=== PATIENT | female | born 1935 | race Caucasian/White ===

== ENCOUNTER 2017-11-08 07:30 | Emergency (ER) | payer BC, MEDICARE ==
[2017-11-08 07:38] VITALS: RESP 16
--- NOTE | 2017-11-08 08:17 | ED ---
General Adult HPI - General Chief complaint: ENT Stated complaint: Ear pain Time Seen by Provider: 11/08/17 07:30 Source: patient, RN notes reviewed Mode of arrival: ambulatory Limitations: no limitations - History of Present Illness Initial comments: This is an 82-year-old female who presents emergency Department complaining for 3 weeks of pain from her left ear into her throat. Patient states she was on an antibiotic for 10 days a couple weeks ago and that seemed to help but it never went away. Patient states anytime she swallows that area between her ear and throat continues to hurt. Patient also complains of significant occipital headache approximately 7 out of 10 pain. Patient continues to work [employer] and states that she cannot deal with her while she is working. Patient is not taking any pain medicines. Patient denies any fever currently but states that beginning of this 3 weeks she did have a fever. Patient denies any vision changes patient denies any numbness or weakness. Patient denies any neck pain. Patient denies any temporal pain. Patient denies any difficulty breathing shortness of breath or abdominal pain. - Related Data Home Medications Medication Instructions Recorded Confirmed Vit A/Vit C/Vit E/Zinc/Copper 1 cap PO BID 11/08/17 11/08/17 [ICAPS SOFTGEL] Previous Rx's Medication Instructions Recorded Amoxicillin/Potassium Clav 1 each PO Q12HR #28 tab 11/08/17 [Augmentin 875-125 Tablet] amLODIPine [Norvasc] 2.5 mg PO DAILY #15 tablet 11/08/17 predniSONE 20 mg PO DAILY #5 tab 11/08/17 Allergies Allergy/AdvReac Type Severity Reaction Status Date / Time No Known Allergies Allergy Verified 11/08/17 08:45 Review of Systems ROS Statement: Those systems with pertinent positive or pertinent negative responses have been documented in the HPI. ROS Other: All systems not noted in ROS Statement are negative. Past Medical History Past Medical History: Cancer Additional Past Medical History / Comment(s): Glaucoma, breast cancer History of Any Multi-Drug Resistant Organisms: None Reported Past Surgical History: Hysterectomy Additional Past Surgical History / Comment(s): right mastectomy Past Psychological History: No Psychological Hx Reported Smoking Status: Never smoker Past Alcohol Use History: None Reported Past Drug Use History: None Reported General Exam - General Exam Comments Initial Comments: GENERAL: Patient is well-developed and well-nourished. Patient is nontoxic and well- hydrated and is in no acute distress. ENT: Neck is soft and supple. No significant lymphadenopathy is noted. Oropharynx is clear. Moist mucous membranes. Neck has full range of motion without eliciting any pain. There is no thyroid enlargement and no masses were felt. Patient's TM was visualized did not appear infected or bulging or erythematous. The external canal was not red swollen and it did not become painful with movement. EYES: The sclera were anicteric and conjunctiva were pink and moist. Extraocular movements were intact and pupils were equal round and reactive to light. Eyelids were unremarkable. SKIN: Skin is clear with no lesions or rashes and otherwise unremarkable. NEUROLOGIC: Patient is alert and oriented x3. Cranial nerves II through XII are grossly intact. Motor and sensory are also intact. Normal speech, volume and content. Symmetrical smile. MUSCULOSKELETAL: Normal extremities with adequate strength and full range of motion. No lower extremity swelling or edema. No calf tenderness. LYMPHATICS: No significant lymphadenopathy is noted PSYCHIATRIC: Normal psychiatric evaluation. Limitations: no limitations Course Vital Signs 11/08/17 11/08/17 11/08/17 07:34 09:57 10:00 Temperature 97.1 F L Pulse Rate 64 59 L Respiratory 16 16 Rate Blood Pressure 210/85 221/98 203/71 O2 Sat by Pulse 100 96 Oximetry 11/08/17 10:34 Temperature Pulse Rate Respiratory Rate Blood Pressure 203/90 O2 Sat by Pulse Oximetry Medical Decision Making - Medical Decision Making patient had elevated blood pressure she was given hydralazine twice he did not bring it down fully but patient refused to stay any longer. Patient states she' s going to get a primary medical care doctor. I again tried to get the patient states she refused. - Lab Data Result diagrams: 11/08/17 08:15 11/08/17 08:15 Lab Results 11/08/17 11/08/17 Range/Units 08:15 08:15 WBC 7.5 (3.8-10.6) k/uL RBC 4.97 (3.80-5.40) m/uL Hgb 13.8 (11.4-16.0) gm/dL Hct 42.2 (34.0-46.0) % MCV 85.1 (80.0-100.0) fL MCH 27.7 (25.0-35.0) pg MCHC 32.6 (31.0-37.0) g/dL RDW 14.3 (11.5-15.5) % Plt Count 318 (150-450) k/uL Neutrophils % 62 % Lymphocytes % 23 % Monocytes % 8 % Eosinophils % 4 % Basophils % 1 % Neutrophils # 4.6 (1.3-7.7) k/uL Lymphocytes # 1.8 (1.0-4.8) k/uL Monocytes # 0.6 (0-1.0) k/uL Eosinophils # 0.3 (0-0.7) k/uL Basophils # 0.1 (0-0.2) k/uL ESR 5 (0-20) mm/hr Sodium 146 H (137-145) mmol/L Potassium 4.1 (3.5-5.1) mmol/L Chloride 109 H (98-107) mmol/L Carbon Dioxide 25 (22-30) mmol/L Anion Gap 12 mmol/L BUN 19 H (7-17) mg/dL Creatinine 0.56 (0.52-1.04) mg/dL Est GFR (CKD-EPI)AfAm >90 (>60 ml/min/1.73 sqM) Est GFR (CKD-EPI)NonAf 88 (>60 ml/min/1.73 sqM) Glucose 86 (74-99) mg/dL Calcium 9.2 (8.4-10.2) mg/dL Total Bilirubin 0.6 (0.2-1.3) mg/dL AST 24 (14-36) U/L ALT 33 (9-52) U/L Alkaline Phosphatase 79 (38-126) U/L Total Protein 6.5 (6.3-8.2) g/dL Albumin 3.8 (3.5-5.0) g/dL Disposition Clinical Impression: Eustachian tube dysfunction, Cephalgia, Hypertension Disposition: HOME SELF-CARE Condition: Good Instructions: Hypertension (ED) Additional Instructions: Patient should take Claritin for any of her ALLERGY symptoms. Prescriptions: amLODIPine [Norvasc] 2.5 mg PO DAILY #15 tablet Amoxicillin/Potassium Clav [Augmentin 875-125 Tablet] 1 each PO Q12HR #28 tab predniSONE 20 mg PO DAILY #5 tab Referrals: None,Stated [Primary Care Provider] - 1-2 days BreTalha wray DO [Doctor of Osteopathic Medicine] - 1-2 days Time of Disposition: 11:32
[2017-11-08 08:39] LABS: Basophils # (A) 0.1 k/uL (0-0.2); Basophils % (A) 1 %; Eosinophils # (A) 0.3 k/uL (0-0.7); Eosinophils % (A) 4 %; HCT 42.2 % (34.0-46.0); HGB 13.8 gm/dL (11.4-16.0); Lymphocytes # (A) 1.8 k/uL (1.0-4.8); Lymphocytes % (A) 23 %; MCH 27.7 pg (25.0-35.0); MCHC 32.6 g/dL (31.0-37.0); MCV 85.1 fL (80.0-100.0); Mean Platelet Volume 7.8; Monocytes # (A) 0.6 k/uL (0-1.0); Monocytes % (A) 8 %; Neutrophils # (A) 4.6 k/uL (1.3-7.7); Neutrophils % (A) 62 %; Platelet Count 318 k/uL (150-450); RBC 4.97 m/uL (3.80-5.40); RDW 14.3 % (11.5-15.5); WBC 7.5 k/uL (3.8-10.6)
--- NOTE | 2017-11-08 08:43 | CT ---
EXAMINATION TYPE: CT brain wo con DATE OF EXAM: 11/08/2017 COMPARISON: 12/14/2012 HISTORY: Ear pain CT DLP: 943.[address] of the brain was performed. The ventricles, basal cisterns and sulci overlying the cerebral convexities demonstrate mild enlargem ent. There is no evidence for intracranial hemorrhage or sulcal effacement. There is decreased attenuation about the periventricular white matter and deep white matter of both c erebral hemispheres, compatible with chronic small vessel ischemia. Differential diagnosis does inclu de demyelination. No mass effects are seen.No midline shift. Osseous calvarium is intact. If symptoms persist consider MRI. IMPRESSION: 1. Age related atrophic and chronic small vessel ischemic change without acute intracranial process s een at this time.
[2017-11-08 08:50] LABS: ALT 33 U/L (9-52); AST 24 U/L (14-36); Albumin 3.8 g/dL (3.5-5.0); Alkaline Phosphatase 79 U/L (38-126); Anion Gap 12 mmol/L; Blood Urea Nitrogen 19 mg/dL (7-17); Calcium 9.2 mg/dL (8.4-10.2); Carbon Dioxide 25 mmol/L (22-30); Chloride 109 mmol/L (98-107); Glucose 86 mg/dL (74-99); Potassium 4.1 mmol/L (3.5-5.1); Sodium 146 mmol/L (137-145); Total Bilirubin 0.6 mg/dL (0.2-1.3); Total Protein 6.5 g/dL (6.3-8.2)
[2017-11-08] MEDS ORDERED: hydrALAZINE HCL 20 MG/ML 1 ML VIAL IVP STA ×2 (09:53→10:52)
[2017-11-08] MEDS ORDERED: KETOROLAC 60 MG/2 ML VIAL IVP STA (09:53)
[2017-11-08 10:13] LABS: Erythrocyte Sedimentation Rate 5 mm/hr (0-20)
[2017-11-08 11:47] VITALS: BP 165/71; PULSE 62; TEMP 98
== END 2017-11-08 11:46 | disposition home or self-care (01) ==
LOC: EC 07:30
DX: I10 Essential (primary) hypertension (principal); H69.92 Unspecified Eustachian tube disorder, left ear; Z53.29 Procedure and treatment not carried out because of patient's decision for other reasons; Z85.3 Personal history of malignant neoplasm of breast
CPT/HCPCS: 36415; 93005; 80053; 85652; 85025; 70450; 99284; 96374; 96375; 96376; J0360; J1885

== ENCOUNTER 2018-08-24 19:52 | Emergency (ER) | payer MEDICARE ==
[2018-08-24 20:04] VITALS: TEMP 97.7
--- NOTE | 2018-08-24 21:02 | XR ---
EXAMINATION TYPE: XR shoulder complete RT DATE OF EXAM: 08/24/2018 COMPARISON: NONE HISTORY: Shoulder pain TECHNIQUE: 3 views FINDINGS: I see no fracture nor dislocation. There is some narrowing of the subacromial joint space. There are no pathologic calcifications. IMPRESSION: Subacromial joint space narrowing. No fracture seen.
--- NOTE | 2018-08-24 21:03 | XR ---
EXAMINATION TYPE: XR humerus RT DATE OF EXAM: 08/24/2018 COMPARISON: NONE HISTORY: Pain TECHNIQUE: 2 views FINDINGS: I see no fracture nor dislocation. Shoulder joint and elbow joint appear intact. There is n o evidence of a mass. IMPRESSION: No acute abnormality of the right humerus.
--- NOTE | 2018-08-24 21:04 | XR ---
EXAMINATION TYPE: XR chest 2V DATE OF EXAM: 08/24/2018 COMPARISON: NONE HISTORY: Pain after falling TECHNIQUE: Frontal and lateral views of the chest are obtained. FINDINGS: Heart and mediastinum are normal. There is minimal subsegmental atelectasis or scarring in the left lower lung field. There is no pneumothorax. Trachea is midline. There is no pleural effusio n. The thorax appears intact. IMPRESSION: No active cardiac pulmonary disease. Minimal subsegmental atelectasis.
--- NOTE | 2018-08-24 21:22 | ED ---
General Adult HPI - General Source: patient, RN notes reviewed, old records reviewed Mode of arrival: ambulatory Limitations: physical limitation <Jadiel Cristina - Last Filed: 08/24/18 22:16> <Mary Lou Fountain - Last Filed: 08/26/18 09:22> - General Chief complaint: Extremity Injury, Upper Stated complaint: Arm injury - History of Present Illness Initial comments: 83-year-old female patient past medical history of hypertension presents to ED with right arm pain. Patient reports that yesterday she was stepping onto a chair when she fell to the right. Patient states that she fell on her right shoulder. Patient denies any head trauma, loss of consciousness. Patient not on blood thinners. Patient denies any trauma to neck or back. Patient states that she has pain in her right midshaft humerus. Patient states that she has pain when she lifts her right arm above her head. Patient denies any pain in right shoulder. Patient has any pain in right elbow, wrist, hand. Patient states the pain is only right midshaft humerus. Patient has mild amount of ecchymoses in the area of complaint. Patient is ambulatory. Patient denies any other injury. Patient denies chest pain, SOB, abdominal pain, headache, n/v /d. Systemic: Pt denies fatigue, myalgia, fever/chills, rash. Pt denies weakness, night sweats, weight loss. Neuro: Pt denies headache, visual disturbances, syncope or pre-syncope. HEENT: Pt denies ocular discharge or irritation, otalgia, rhinorrhea, pharyngitis or notable lymphadenopathy. Cardiopulmonary: Pt denies chest pain, SOB, heart palpitations, dyspnea on exertion. Abdominal/GI: Pt denies abdominal pain, n/v/d. : Pt denies dysuria, burning w/ urination, frequency/urgency. Denies new onset urinary or bowel incontinence. MSK: Pt denies myalgia, loss of strength or function in extremities. Neuro: Pt denies new onset weakness, paresthesias. (Jadiel Cristina) - Related Data Previous Rx's Medication Instructions Recorded Ibuprofen [Motrin] 600 mg PO Q6HR PRN #40 day 08/24/18 Allergies Allergy/AdvReac Type Severity Reaction Status Date / Time No Known Allergies Allergy Verified 08/24/18 20:04 Review of Systems ROS Other: All systems not noted in ROS Statement are negative. <Jadiel Cristina - Last Filed: 08/24/18 22:16> ROS Other: All systems not noted in ROS Statement are negative. <Ovi Fountainssmiko Chappell - Last Filed: 08/26/18 09:22> ROS Statement: Those systems with pertinent positive or pertinent negative responses have been documented in the HPI. Past Medical History Past Medical History: Cancer Additional Past Medical History / Comment(s): Glaucoma, breast cancer History of Any Multi-Drug Resistant Organisms: None Reported Past Surgical History: Hysterectomy Additional Past Surgical History / Comment(s): right mastectomy Past Psychological History: No Psychological Hx Reported Smoking Status: Never smoker Past Alcohol Use History: None Reported Past Drug Use History: None Reported <Jadiel Cristina - Last Filed: 08/24/18 22:16> General Exam Limitations: physical limitation <Jadiel Cristina Sandy - Last Filed: 08/24/18 22:16> <Mary Lou Fountain - Last Filed: 08/26/18 09:22> - General Exam Comments Initial Comments: Constitutional: NAD, AOX3, Pt has pleasant affect. HEENT: NC/AT, trachea midline, neck supple, no lymphadenopathy. Posterior pharynx non erythematous, without exudates. External ears appear normal, without discharge. Mucous membranes moist. Eyes PERRLA, EOM intact. There is no scleral icterus. No pallor noted. Cardiopulmonary: RRR, no murmurs, rubs or gallops, no JVD noted. Lungs CTAB in anterior and posterior renteria. No peripheral edema. Abdominal exam: Abdomen soft and non-distended. Abdomen non-tender to palpation in all 4 quadrants. Bowel sounds active in LLQ. No hepatosplenomegaly. No ecchymosis Neuro: CN II-XII intact. No nuchal rigidity. No focal defecit, no facial droop. No cervical spinal tenderness. Full active ROM of cervical spine. MSK: R shoulder, R clavicle non tender to palpation. Pt lateral midshaft R humerus mildly tender to palpation, mild ecchymosis noted. Pt R elbow and wrist nontender to palpation. Limited ROM of humerus secondary to pain. Pt has full ROM of R shoulder. Pt has full ROM of R elbow and wrist. 5/5 stregnth triceps and biceps. Sensation intact. Radial pulse +2 bilaterally. No posterior calf tenderness bilaterally, homans sign negative bilaterally. Posterior tibialis +2 bilaterally. Sensation intact in upper and lower extremities. Full active ROM in lower extremities, 5/5 stregnth. Pt ambulatory. (Jadiel Cristina) Vital Signs 08/24/18 08/24/18 20:00 21:28 Temperature 97.7 F Pulse Rate 66 88 Respiratory 18 16 Rate Blood Pressure 175/82 147/97 O2 Sat by Pulse 95 99 Oximetry Medical Decision Making <Jadiel Cristina - Last Filed: 08/24/18 22:16> <Mary Lou Fountain - Last Filed: 08/26/18 09:22> - Medical Decision Making 83-year-old female patient past medical history of hypertension presents to ED with right arm pain. Patient reports that yesterday she was stepping onto a chair when she fell to the right. Patient states that she fell on her right shoulder. Patient denies any head trauma, loss of consciousness. Patient not on blood thinners. Patient denies any trauma to neck or back. Patient states that she has pain in her right midshaft humerus. Patient is ambulatory. Patient denies any other injury. Physical exam displayed pain to palpation in right midshaft humerus, mild amount ecchymoses. Neurovascularly intact. Plain films of right shoulder did not display any acute process. Plain films of right humerus and display any acute abnormality. Chest did not display any active cardiopulmonary disease. Patient diagnosed contusion. Patient to follow up with orthopedic consult. Patient does not currently have a primary care physician, patient referred to [facility] [place]. Patient take nonsteroidal anti-inflammatories as needed for pain. Patient to return to ED if new signs symptoms develop or if condition worsens in any way. Case discussed with Dr. Fountain. (Jadiel Cristina) I was available for consultation in the emergency department. The history and physical exam were done by the midlevel provider. I was consulted for this patient's care. I reviewed the case with the midlevel provider and based on their presentation of the patient, I agree with the assessment, medical decision making and plan of care as documented. (Mary Lou Fountain) Disposition Is patient prescribed a controlled substance at d/c from ED?: No Time of Disposition: 21:21 <Jadiel Cristina - Last Filed: 08/24/18 22:16> <Mary Lou Fountain - Last Filed: 08/26/18 09:22> Clinical Impression: Arm pain, Contusion Disposition: HOME SELF-CARE Condition: Good Instructions: Fall Prevention for Older Adults (ED) Additional Instructions: Patient to adhere to previously discussed treatment plan and will take medication(s) as directed. Patient to follow up with PCP in 1-2 days. Patient to return to ED if symptoms do not improve. Prescriptions: Ibuprofen [Motrin] 600 mg PO Q6HR PRN #40 day PRN Reason: Pain Referrals: None,Stated [Primary Care Provider] - 1-2 days [facility] [[facility]] - 1-2 days Irving Clemente MD [STAFF PHYSICIAN] - 1-2 days
[2018-08-24 21:28] VITALS: BP 147/97; PULSE 88; RESP 16
== END 2018-08-24 21:28 | disposition home or self-care (01) ==
LOC: EC 19:52
DX: S40.021A Contusion of right upper arm, initial encounter (principal); Z85.3 Personal history of malignant neoplasm of breast; W07.XXXA Fall from chair, initial encounter; Y92.009 Unspecified place in unspecified non-institutional (private) residence as the place of occurrence of the external cause
CPT/HCPCS: 71046; 99284

== ENCOUNTER → 2018-11-03 | Outpatient (CLI) | payer OTHER ==
--- NOTE | 2018-11-03 15:51 | XR ---
EXAMINATION TYPE: XR wrist complete LT DATE OF EXAM: 11/03/2018 COMPARISON: NONE HISTORY: 83 year-old female left wrist sprain after fall last night, pain. TECHNIQUE: 4 views FINDINGS: Moderate to severe degenerative change at the first CMC joint and moderate at the triscaphe joint. Th e radiocarpal and distal radioulnar joint as well as the midcarpal compartment appear intact. No acut e fracture, subluxation, or dislocation. 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 No acute osseous abnormality seen.
== END | disposition home or self-care (01) ==
LOC: RADXRMAIN 15:03
PROVIDERS: ATTEND Emergency Medicine
DX: M19.042 Primary osteoarthritis, left hand (principal)

== ENCOUNTER → 2019-04-28 | Outpatient (CLI) | payer MEDICARE ==
--- NOTE | 2019-04-28 10:22 | MM ---
Reason for exam: screening (asymptomatic). Last mammogram was performed 1 year and 10 months ago. History: Patient is postmenopausal and has history of breast cancer at age 58. Mastectomy of the right breast, 1994. Physical Findings: A clinical breast exam by your physician is recommended on an annual basis and results should be correlated with mammographic findings. MG 3D Scr Eulogio Unilateral W/Cad CC and MLO view(s) were taken of the left breast. Prior study comparison: June 18, 2017, mammogram. March 24, 2015, mammogram. May 13, 2012, mammogram. The breast tissue is heterogeneously dense. This may lower the sensitivity of mammography. No suspicious abnormality on left breast. No significant changes when compared with prior studies. ASSESSMENT: Negative, BI-RAD 1 RECOMMENDATION: Routine screening mammogram of the left breast in 1 year.
== END | disposition home or self-care (01) ==
LOC: RADMAMWWP 07:22
PROVIDERS: ATTEND Family Medicine
DX: Z12.31 Encounter for screening mammogram for malignant neoplasm of breast (principal)
CPT/HCPCS: 77067

== ENCOUNTER → 2020-06-02 | Outpatient (CLI) | payer MEDICARE ==
--- NOTE | 2020-06-06 09:18 | MM ---
Reason for exam: screening (asymptomatic). Last mammogram was performed 1 year and 1 month ago. History: Patient is postmenopausal and has history of breast cancer at age 58. Mastectomy of the right breast, 1994. Physical Findings: A clinical breast exam by your physician is recommended on an annual basis and results should be correlated with mammographic findings. MG 3D Scr Eulogio Unilateral W/Cad CC and MLO view(s) were taken of the left breast. Prior study comparison: April 28, 2019, bilateral MG 3d scr eulogio unilateral w/cad. June 18, 2017, mammogram. There are scattered fibroglandular densities. No significant changes when compared with prior studies. ASSESSMENT: Negative, BI-RAD 1 RECOMMENDATION: Routine screening mammogram of the left breast in 1 year.
== END | disposition home or self-care (01) ==
LOC: RADMAMWWP 13:37
PROVIDERS: ATTEND Family Medicine
DX: Z08 Encounter for follow-up examination after completed treatment for malignant neoplasm (principal); Z85.3 Personal history of malignant neoplasm of breast
CPT/HCPCS: 77067

== ENCOUNTER 2020-08-01 09:42 | Emergency (ER) | payer MEDICARE ==
[2020-08-01 09:57] VITALS: RESP 18; TEMP 98.2
--- NOTE | 2020-08-01 10:54 | ED ---
Extremity Problem HPI - General Chief complaint: Extremity Problem,Nontraumatic Stated complaint: L knee pain, covid + Time Seen by Provider: 08/01/20 10:01 Source: patient Mode of arrival: wheelchair - History of Present Illness Initial comments: Patient is an 85-year-old female, presenting to emergency Department with complaints of left knee pain that started this morning. Patient denies any injuries or falls. Patient states she is currently recovering from the covid virus. She denies any fevers, shortness of breath, chest pain. She denies history of previous surgeries or injuries of her left knee. She denies history of blood clots. She is not taking a blood thinner. She denies any nausea or vomiting. Patient has no further complaints at this time. Upon arrival to the ER her vitals are stable. - Related Data Home Medications Medication Instructions Recorded Confirmed Cetirizine HCl [Zyrtec] 10 mg PO DAILY 08/01/20 08/01/20 Multivitamins, Thera [Multivitamin 1 tab PO DAILY 08/01/20 08/01/20 (formulary)] Vit C/E/Zn/Coppr/Lutein/Zeaxan 1 cap PO DAILY 08/01/20 08/01/20 [Preservision Areds 2 Softgel] Allergies Allergy/AdvReac Type Severity Reaction Status Date / Time No Known Allergies Allergy Verified 08/01/20 11:03 Review of Systems ROS Statement: Those systems with pertinent positive or pertinent negative responses have been documented in the HPI. ROS Other: All systems not noted in ROS Statement are negative. Past Medical History Past Medical History: Cancer Additional Past Medical History / Comment(s): Glaucoma, breast cancer History of Any Multi-Drug Resistant Organisms: None Reported Past Surgical History: Hysterectomy Additional Past Surgical History / Comment(s): right mastectomy Past Psychological History: No Psychological Hx Reported Smoking Status: Never smoker Past Alcohol Use History: None Reported Past Drug Use History: None Reported General Exam - General Exam Comments Initial Comments: GENERAL: Patient is well-developed and well-nourished. Patient is nontoxic and in no acute distress. HEAD: Atraumatic, normocephalic. EYES: Pupils equal round and reactive to light, extraocular movements intact, sclera anicteric, conjunctiva are normal. Eyelids were unremarkable. ENT: TMs normal, nares patent, oropharynx clear without exudates. Moist mucous membranes. NECK: Normal range of motion, supple without lymphadenopathy or JVD. LUNGS: Unlabored respirations. Breath sounds clear to auscultation bilaterally and equal. No wheezes rales or rhonchi. HEART: Regular rate and rhythm without murmurs, rubs or gallops. ABDOMEN: Soft, nontender, normoactive bowel sounds. No guarding, no rebound. No masses appreciated. : Deferred MUSCULOSKELETAL: The patient has decreased range of motion, full extension, approximately 30 of active flexion, secondary to pain. There is some mild swelling present compared to the right knee. There is no erythema, signs of infection. No clubbing or cyanosis. NEUROLOGICAL: Patient is alert and oriented x 3. Motor and sensory are also intact. Cranial nerves II through XII grossly intact. Symmetrical smile. Normal speech. PSYCH: Normal mood, normal affect. SKIN: Warm, Dry, normal turgor, no rashes or lesions noted. Course Vital Signs 08/01/20 08/01/20 08/01/20 09:54 10:14 12:17 Temperature 98.2 F 98.2 F Pulse Rate 62 56 L 72 Respiratory 18 18 18 Rate Blood Pressure 91/52 126/55 134/64 O2 Sat by Pulse 99 96 98 Oximetry Medical Decision Making - Medical Decision Making Patient is an 85-year-old female here for left knee pain x 1 day. No previous histories of surgeries. Her vitals are stable. She currently is positive for covid. No chest pain, no shortness of breath, she has been feeling okay except for this left knee pain. She does have some very mild swelling of left knee, no signs of infection. Her x-rays revealed no acute x-rays dislocations, some mild suprapatellar swelling. I discussed these findings with the patient. I recommended continuing with elevation, ice and compression. I did give her an Osiel wrap. I'll also give her orthopedic follow-up if symptoms persist. She is in agreement with this plan of care. She is stable for discharge. Case discussed with Dr. Pepper. - Lab Data Result diagrams: 08/01/20 10:57 08/01/20 10:57 Lab Results 08/01/20 08/01/20 Range/Units 10:57 10:57 WBC 10.3 (3.8-10.6) k/uL RBC 5.51 H (3.80-5.40) m/uL Hgb 16.1 H (11.4-16.0) gm/dL Hct 47.4 H (34.0-46.0) % MCV 85.9 (80.0-100.0) fL MCH 29.2 (25.0-35.0) pg MCHC 34.0 (31.0-37.0) g/dL RDW 13.3 (11.5-15.5) % Plt Count 243 (150-450) k/uL MPV 8.0 Neutrophils % 80 % Lymphocytes % 9 % Monocytes % 8 % Eosinophils % 0 % Basophils % 1 % Neutrophils # 8.3 H (1.3-7.7) k/uL Lymphocytes # 1.0 (1.0-4.8) k/uL Monocytes # 0.8 (0-1.0) k/uL Eosinophils # 0.0 (0-0.7) k/uL Basophils # 0.1 (0-0.2) k/uL Sodium 136 L (137-145) mmol/L Potassium 4.9 (3.5-5.1) mmol/L Chloride 108 H (98-107) mmol/L Carbon Dioxide 23 (22-30) mmol/L Anion Gap 5 mmol/L BUN 17 (7-17) mg/dL Creatinine 0.76 (0.52-1.04) mg/dL Est GFR (CKD-EPI)AfAm 84 (>60 ml/min/1.73 sqM) Est GFR (CKD-EPI)NonAf 73 (>60 ml/min/1.73 sqM) Glucose 101 H (74-99) mg/dL Calcium 9.0 (8.4-10.2) mg/dL Total Bilirubin 1.1 (0.2-1.3) mg/dL AST 28 (14-36) U/L ALT 12 (4-34) U/L Alkaline Phosphatase 77 (38-126) U/L C-Reactive Protein 9.8 (<10.0) mg/L Total Protein 6.5 (6.3-8.2) g/dL Albumin 3.6 (3.5-5.0) g/dL Disposition Clinical Impression: Left knee pain Disposition: HOME SELF-CARE Condition: Stable Instructions (If sedation given, give patient instructions): Knee Pain (ED) Additional Instructions: Please return to the Emergency Department if symptoms worsen or any other concerns. Recommend ice to the area, compression, elevation. May take Tylenol or Motrin for discomfort. If symptoms persist follow-up with orthopedic doctor as discussed. Is patient prescribed a controlled substance at d/c from ED?: No Referrals: Bobbi Meyer DO [Primary Care Provider] - 1-2 days Jin Simpson DO [Doctor of Osteopathic Medicine] - 1-2 days
[2020-08-01 11:05] LABS: Basophils # (A) 0.1 k/uL (0-0.2); Basophils % (A) 1 %; Eosinophils % (A) 0 %; HCT 47.4 % (34.0-46.0); HGB 16.1 gm/dL (11.4-16.0); Lymphocytes % (A) 9 %; MCH 29.2 pg (25.0-35.0); MCV 85.9 fL (80.0-100.0); Monocytes # (A) 0.8 k/uL (0-1.0); Monocytes % (A) 8 %; Neutrophils # (A) 8.3 k/uL (1.3-7.7); Neutrophils % (A) 80 %; Platelet Count 243 k/uL (150-450); RBC 5.51 m/uL (3.80-5.40); RDW 13.3 % (11.5-15.5); WBC 10.3 k/uL (3.8-10.6)
[2020-08-01 11:16] LABS: Albumin 3.6 g/dL (3.5-5.0); C Reactive Protein 9.8 mg/L (<10.0); Potassium 4.9 mmol/L (3.5-5.1); Total Bilirubin 1.1 mg/dL (0.2-1.3); Total Protein 6.5 g/dL (6.3-8.2)
--- NOTE | 2020-08-01 11:17 | XR ---
EXAMINATION TYPE: XR knee complete LT DATE OF EXAM: 08/01/2020 CLINICAL HISTORY: pain TECHNIQUE: Three views of the left knee are obtained. COMPARISON: None. FINDINGS: There is no acute fracture/dislocation. The tri-compartment joint spaces appear mildly na rrowed. Small suprapatellar joint effusion noted. The overlying soft tissue appears unremarkable. IMPRESSION: There is no acute fracture or dislocation ICD 10 NO FRACTURE, INITIAL EVALUATION
[2020-08-01 12:18] VITALS: BP 134/64; PULSE 72
== END 2020-08-01 12:18 | disposition home or self-care (01) ==
LOC: EC 09:42
DX: M25.562 Pain in left knee (principal); M25.462 Effusion, left knee; U07.1 COVID-19; Z79.899 Other long term (current) drug therapy; Z85.3 Personal history of malignant neoplasm of breast
CPT/HCPCS: 36415; 80053; 85025; 86140; 99283

== ENCOUNTER 2020-09-01 14:11 | Emergency (ER) | payer MEDICARE, OTHER ==
[2020-09-01 14:17] VITALS: RESP 18; TEMP 98.1
[2020-09-01] MEDS ORDERED: LIDOCAINE 1% INJ 10MG/ML (20 ML MDV) SQ ONE (14:45)
[2020-09-01] MEDS ORDERED: ONDANSETRON 4 MG/2 ML VIAL IVP STA (14:45)
[2020-09-01] MEDS ORDERED: MORPHINE SULFATE 4 MG/ML SYRINGE IVP STA (14:45)
--- NOTE | 2020-09-01 14:45 | ED ---
Fall HPI - General Source: patient, EMS Mode of arrival: EMS <Tr Mercer - Last Filed: 09/01/20 17:20> <Devora Larios - Last Filed: 09/07/20 23:56> - General Chief Complaint: Fall Stated Complaint: Fall Time Seen by Provider: 09/01/20 14:18 - History of Present Illness Initial Comments: 85-year-old female presenting to the emergency department with a chief complaint of a fall. Patient states she was at work when she lost her balance and fell backwards. Patient states in attempt to brace her fall, she injured her left wrist. Patient states it hurts to move it in any direction. She denies any numbness or tingling. She denies any loss of consciousness or injury to the head. She is not on any blood thinners. States the pain is alleviated at rest. (Tr Mercer) - Related Data Home Medications Medication Instructions Recorded Confirmed Cetirizine HCl [Zyrtec] 10 mg PO DAILY 08/01/20 09/07/20 Vit C/E/Zn/Coppr/Lutein/Zeaxan 1 cap PO DAILY 08/01/20 09/07/20 [Preservision Areds 2 Softgel] Multivit-Min/FA/Lycopen/Lutein 1 each PO DAILY 09/07/20 09/07/20 [Centrum Silver Tablet] Previous Rx's Medication Instructions Recorded Hydrocodone/Acetaminophen [[place] 1 tab PO Q6HR PRN #12 tab 09/01/20 5-325] Allergies Allergy/AdvReac Type Severity Reaction Status Date / Time No Known Allergies Allergy Verified 09/07/20 09:21 Review of Systems ROS Other: All systems not noted in ROS Statement are negative. <Tr Mercer - Last Filed: 09/01/20 17:20> ROS Other: All systems not noted in ROS Statement are negative. <Devora Larios - Last Filed: 09/07/20 23:56> ROS Statement: Those systems with pertinent positive or pertinent negative responses have been documented in the HPI. Past Medical History Past Medical History: Cancer Additional Past Medical History / Comment(s): Glaucoma, breast cancer History of Any Multi-Drug Resistant Organisms: None Reported Past Surgical History: Hysterectomy Additional Past Surgical History / Comment(s): right mastectomy Past Psychological History: No Psychological Hx Reported Smoking Status: Never smoker Past Alcohol Use History: None Reported Past Drug Use History: None Reported <Tr Mercer - Last Filed: 09/01/20 17:20> General Exam Limitations: no limitations General appearance: alert, in no apparent distress Head exam: Present: atraumatic, normocephalic, normal inspection Eye exam: Present: normal appearance, PERRL, EOMI Pupils: Present: normal accommodation ENT exam: Present: normal exam, normal oropharynx, mucous membranes moist, TM's normal bilaterally, normal external ear exam Neck exam: Present: normal inspection, full ROM. Absent: tenderness Respiratory exam: Present: normal lung sounds bilaterally. Absent: respiratory distress, wheezes, rales Cardiovascular Exam: Present: regular rate, normal rhythm, normal heart sounds Extremities exam: Present: tenderness (Tenderness at the left wrist. Obvious bony deformity noted. Some ecchymosis noted in the region. Mild swelling.), normal capillary refill, other (+2 ulnar and radial pulses bilaterally.). Absent: normal inspection (Obvious bony deformity noted.), full ROM (Limited range of motion due to pain), pedal edema, joint swelling, calf tenderness Back exam: Present: normal inspection, full ROM. Absent: tenderness, CVA tenderness (R), CVA tenderness (L) Neurological exam: Present: alert, oriented X3, normal gait Psychiatric exam: Present: normal affect, normal mood Skin exam: Present: warm, dry, intact, normal color <Tr Mercer - Last Filed: 09/01/20 17:20> Course Vital Signs 09/01/20 09/01/20 14:13 16:51 Temperature 98.1 F Pulse Rate 58 L 76 Respiratory 18 18 Rate Blood Pressure 205/75 182/77 O2 Sat by Pulse 97 96 Oximetry Procedures - Nerve Block Consent Obtained: verbal consent Local Anesthetic Used: Lidocaine 1% Amount of anesthesia used: 10 Side: left Nerve Blocks: hematoma block Procedure Successful: Yes Complications: none Patient Tolerated Procedure: well, no complications - Orthopedic Fracture Reduction Fracture #1 Consent Obtained: verbal consent Side: left Fracture Reduction Location: radius, ulna Analgesia: hematoma block Technique: direct manipulation Post Reduction X-rays Demonstrate: acceptable reduction Post-Reduction Neuro Exam: intact, no change Post-Reduction Vascular Exam: intact Splint Applied: Yes Patient Tolerated Procedure: well, no complications - Orthopedic Splinting/Casting Injury #1 Side: left Upper Extremity Injury Location: wrist Upper Extremity Immobilizer: volar splint, Osiel wrap, synthetic pre-padded splint <Tr Mercer - Last Filed: 09/01/20 17:20> Medical Decision Making <Tr Mercer - Last Filed: 09/01/20 17:20> <Devora Larios - Last Filed: 09/07/20 23:56> - Medical Decision Making 85-year-old female presenting to the emergency room with a chief complaint of a fall. On physical examination, she is neurovascularly intact. Patient was given morphine for symptom control. X-ray of the left wrist reveals a comminuted fracture of the distal radial metaphysis with dorsal and radial angulation. Additional comminuted fracture is also noted on the ulnar neck with a radial and dorsal adulation. Hematoma block was performed and fracture reduction was attempted. Acceptable reduction performed. Volar splint applied. Patient was advised to follow-up with orthopedics. She will be discharged with [place]. She was informed regarding opioid abuse. Narcotic form signed. Return parameters discussed the patient is understanding and agreeable. Case discussed with physician. (Tr Mercer) I was available for consultation in the emergency department. The history and physical exam were done by the midlevel provider. I was consulted for this patients care. I reviewed the case with the midlevel provider and based on their presentation of the patient, I agree with the assessment, medical decision making and plan of care as documented. Chart was dictated using [employer] dictation software. Attempts were made to correct any dictation errors however some typographical errors may persist. Patient was seen during a national state of emergency due to the Covid-19 pandemic. (Devora Larios) Disposition Is patient prescribed a controlled substance at d/c from ED?: Yes If prescribed controlled substance>3 days was MAPS reviewed?: Prescribed <3 Days Time of Disposition: 16:19 <Tr Mercer - Last Filed: 09/01/20 17:20> <Devora Larios - Last Filed: 09/07/20 23:56> Clinical Impression: Fall, Wrist fracture, left, Distal radius fracture, left, Distal end of ulna fracture, closed Disposition: HOME SELF-CARE Condition: Stable Instructions (If sedation given, give patient instructions): Wrist Fracture in Adults (ED) Additional Instructions: Alternate between Tylenol and Motrin for pain control. Take [place] if the pain is severe. Follow-up with orthopedics. Return to emergency department if symptoms worsen. Prescriptions: Hydrocodone/Acetaminophen [[place] 5-325] 1 tab PO Q6HR PRN #12 tab PRN Reason: Pain Referrals: Bobbi Meyer DO [Primary Care Provider] - 1-2 days Jadiel Blunt MD [STAFF PHYSICIAN] - 1-2 days
--- NOTE | 2020-09-01 15:26 | XR ---
EXAMINATION TYPE: XR wrist complete 3 views LT, XR hand complete 3 views LT DATE OF EXAM: 09/01/2020 COMPARISON: Wrist radiograph 11/03/2018 HISTORY: 85-year-old female wrist injury, obvious bony deformity, pain FINDINGS: Wrist: There is a comminuted impacted fracture of the distal radial metaphysis and metadiaphysis. There is d orsal and radial angulation. Secondary positive ulnar variance. An additional mildly comminuted fract ure of the ulnar neck also with radial and dorsal angulation. Moderate degenerative change first CMC and triscaphe joints. Hand: Osteopenia. Degenerative joint space narrowing throughout the MCP joints. Prominent marginal spurring throughout the DIP joints and additional degenerative change at the base of the thumb. No additional acute fracture is seen. IMPRESSION: 1. Wrist: Comminuted fracture distal radial metaphysis and metadiaphysis with dorsal and radial angul ation. Additional comminuted fracture of the ulnar neck also with radial and dorsal angulation. 2. Hand: Osteoarthritic changes throughout. Osteopenia. No additional acute osseous abnormality seen.
[2020-09-01] MEDS ORDERED: HYDROcodone/APAP 5-325MG 1 EACH TAB PO STA (16:17)
[2020-09-01 16:52] VITALS: BP 182/77; PULSE 76
--- NOTE | 2020-09-01 17:14 | XR ---
Result: History: Postreduction. Comparison: Earlier same day. Technique: 3 views of the left wrist. Findings: There is interval reduction and splinting of the distal radius and ulnar fractures with improved near anatomic alignment. No evidence of dislocation. Impression: As above.
== END 2020-09-01 17:52 | disposition home or self-care (01) ==
LOC: EC 14:11
DX: S52.502A Unspecified fracture of the lower end of left radius, initial encounter for closed fracture (principal); S52.602A Unspecified fracture of lower end of left ulna, initial encounter for closed fracture; Z85.3 Personal history of malignant neoplasm of breast; Z90.11 Acquired absence of right breast and nipple; W01.0XXA Fall on same level from slipping, tripping and stumbling without subsequent striking against object, initial encounter; Y92.69 Other specified industrial and construction area as the place of occurrence of the external cause; Y99.0 Civilian activity done for income or pay
CPT/HCPCS: 73110; 73130; 99283; 25605; 96374; 96375; J2270; J2405; J2001

== ENCOUNTER 2020-09-08 15:10 | Inpatient (IN) | payer MEDICARE, OTHER ==
[2020-09-07 09:31] VITALS: BMI 24.3
--- NOTE | 2020-09-07 15:00 | HP ---
HISTORY AND PHYSICAL DATE OF SURGERY: 09/08/2020 Celsa Luciano is an 85-year-old patient seen with a comminuted displaced left distal radius fracture. Recommend open reduction, internal fixation. She was agreeable. Consent was obtained. PAST MEDICAL HISTORY: Glaucoma, osteoarthritis. PAST SURGICAL HISTORY: Hysterectomy. DAILY MEDICATIONS: Vitamins. ALLERGIES: None. SOCIAL HISTORY: She denies tobacco use. PHYSICAL EVALUATION OF LEFT WRIST: Tenderness about the distal radius, diffuse swelling, diffuse ecchymosis. Limited range of motion of the fingers with mild pain. Perfusion sensation intact distally. Good radial pulse present. Radiographs of the left wrist revealed a severely comminuted displaced left distal radius fracture along with an ulna fracture. IMPRESSION: Comminuted displaced left distal radius fracture. PLAN: Open reduction, internal fixation left distal radius. MMODL / IJN: [id number] /
[~2020-09-08 15:10] MED LIST: LIDOCAINE 1% (10MG/ML) FOR IV START INTRADERMA PRN; ONDANSETRON 4 MG/2 ML VIAL IVP ONE
[2020-09-08] MEDS: LACTATED RINGERS 1,000 ML IV SCH ×2 (15:58→23:47)
[2020-09-08] MEDS ORDERED: DEXAMETHASONE SOD PHOSPHATE 4 MG/ML 1 ML VIAL IVP ONE (15:59)
[2020-09-08] MEDS ORDERED: MIDAZOLAM 2 MG/2 ML VIAL IVP ONE (16:36)
[2020-09-08] MEDS ORDERED: fentaNYL (PF) 50 MCG/ML 2 ML AMP IVP ONE ×3 (16:36→18:41)
[2020-09-08] MEDS ORDERED: LIDOCAINE 1% INJ 10MG/ML (20 ML MDV) ONE (16:50)
[2020-09-08] MEDS ORDERED: LIDOCAINE 2%-EPI 1:100,000 20 ML VIAL ONE (16:50)
[2020-09-08] MEDS ORDERED: DEXAMETHASONE SOD PHOSPHATE 4 MG/ML 1 ML VIAL ONE (16:50)
[2020-09-08] MEDS ORDERED: ROPIVACAINE 5 MG/ML 30 ML VIAL ONE (16:50)
[2020-09-08] MEDS ORDERED: fentaNYL (PF) 50 MCG/ML 2 ML AMP ONE (16:50)
[2020-09-08] MEDS ORDERED: PROPOFOL 10 MG/ML 20 ML VIAL IV ONE (16:50)
--- NOTE | 2020-09-08 17:17 | P.ANPRN ---
Procedure Note - Anesthesia - Nerve Block Performed Left Supraclavicular Single Time Out Performed: Yes ([id number]) Date of Procedure: 09/08/20 Procedure Start Time: 16:36 Procedure Stop Time: 16:41 Location of Patient: PreOp Indication: Acute Post-Operative Pain, Requested by Surgeon Specifically requested for management of pain by DrBob: Juan Kerr Sedation Type: Sedate with meaningful contact maintained Preparation: Sterile Prep Position: Supine Catheter: None Needle Types: Pajunk Needle Gauge: 21 Ultrasound used to visualize needle placement: Yes Ultrasound used to observe medication spread: Yes Injectate: 0.5% Ropivacaine (see comment for volume) (20cc) Blood Aspirated: No Pain Paresthesia on Injection Noted: No Resistance on Injection: Normal Image Stored and Saved: Yes Events: Uneventful and Well Tolerated
--- NOTE | 2020-09-08 18:00 | P.OP ---
Date of Procedure: 09/08/20 Preoperative Diagnosis: Comminuted/displaced left distal radius fracture Postoperative Diagnosis: Comminuted/displaced left distal radius fracture Procedure(s) Performed: Open reduction and internal fixation left distal radius fracture Implants: Arthrex distal volar plate with appropriate length screws Anesthesia: GETA, regional (Interscalene block) Surgeon: Juan Kerr Crew Boss #1: Bairon Cm Estimated Blood Loss (ml): 9 Pathology: none sent Condition: stable Disposition: PACU Indications for Procedure: 85-year-old patient seen with displaced comminuted left distal radius fracture. I recommended open reduction internal fixation. Patient was agreeable and consent was obtained. Operative Findings: See description of procedure Description of Procedure: Patient was taken to the operative suite. Patient received preoperative IV antibiotics. She underwent a general anesthetic by the department of anesthesia. Well-padded tourniquet placed left upper extremity. Left upper extremity was prepped and draped in the normal sterile orthopedic fashion. The extremity was elevated and tourniquet insufflated to 250. Standard 4 incision made sharply through skin. Dissection taken down subcutaneously and lysis soft tissues down to the volar distal radius. There was a severely comminuted displaced fracture involving the distal radius extending into the diaphyseal area approximately. It did not appear to be intra-articular component. The wound was irrigated. The fragments were approximated and held in position with bone reduction forceps and Antione LU fraction position. I chose a appropriate length Arthrex distal volar wrist plate. I secured. I brought the C-arm in the operative foot confirming adequate position. Drill holes were made proximally and distally and appropriate length screws and pegs were inserted. They good purchase and fixation. The bone clamp was removed. The fracture looked stable. C-arm brought back into the operative field. We had good alignment and fixation of fracture. Spot films were obtained document this. The wound was irrigated. The subcu soft tissues were approximated 3-0 Vicryl. The skin was approximate with a running subcuticular closure followed by skin glue. Sterile dressings were applied. Tourniquet released. Immediate capillary refill of all digits noted. Patient placed into a well-padded volar splint. Patient awakened and transferred to a bed and recovery stable condition. Antione LU assisted with this procedure.
[2020-09-08] MEDS ORDERED: HYDROmorphone 0.5 MG/0.5 ML SYRINGE IVP ONE ×3 (18:20→19:19)
[2020-09-08] MEDS ORDERED: LABETALOL SYRINGE 5 MG/ML IVP ONE (19:32)
[2020-09-08] MEDS ORDERED: HYDROmorphone 0.2 MG/1 ML SYRINGE IVP PRN (19:48)
[2020-09-08] MEDS ORDERED: ONDANSETRON 4 MG/2 ML VIAL IVP PRN (19:48)
[2020-09-08] MEDS ORDERED: HYDROmorphone 0.5 MG/0.5 ML SYRINGE IVP PRN (19:48)
[2020-09-08] MEDS ORDERED: LACTATED RINGERS 1,000 ML IV ONE ×2 (19:53)
[2020-09-08] MEDS ORDERED: hydrALAZINE HCL 20 MG/ML 1 ML VIAL IVP ONE (19:59)
[2020-09-08] MEDS: HYDROmorphone 0.5 MG/0.5 ML SYRINGE IVP PRN ×2 (20:00→20:14)
[2020-09-09] MEDS: HYDROmorphone 0.5 MG/0.5 ML SYRINGE IVP PRN ×2 (02:32→22:11)
--- NOTE | 2020-09-09 07:02 | FL ---
EXAMINATION TYPE: FL guidance operating room DATE OF EXAM: 09/08/2020 HISTORY: Fluoroscopy time 7 seconds of fluoroscopy provided. IMPRESSION: 1. Fluoroscopy time.
[2020-09-09] MEDS: LACTATED RINGERS 1,000 ML IV SCH ×2 (07:10→15:57)
--- NOTE | 2020-09-09 07:29 | XR ---
EXAMINATION TYPE: XR wrist limited LT DATE OF EXAM: 09/08/2020 COMPARISON: 09/01/2020 TECHNIQUE: Two views submitted HISTORY: Post op FINDINGS: There is postsurgical in near anatomic alignment. There is soft tissue edema and emphysema. Fractures of the distal ulna and radius noted. Could not rule out a fracture of the scaphoid. IMPRESSION: 1. Postoperative change. Appears in near-anatomic alignment. 2. The frontal view is limited in resolution due to intraoperative technique, however, there is sugge stion a possible lucency through the scaphoid bone. Recommend repeated dedicated wrist series with sc aphoid view to assess for scaphoid fracture.
[2020-09-09] MEDS: HYDROcodone/APAP 5-325MG 1 EACH TAB PO PRN ×2 (07:52→15:58)
--- NOTE | 2020-09-09 09:22 | P.PN ---
Subjective Progress Note Date: 09/09/20 Principal diagnosis: Status post ORIF left distal radius fracture Patient evaluated at bedside. She has no acute events overnight. Her pain is controlled with current medication. Denies any headaches, lightheadedness, shortness of breath, fever chills, nausea vomiting. Objective - Vital Signs Vital signs: Vital Signs Temp 97.8 F 09/09/20 01:21 Pulse 90 09/09/20 08:04 Resp 16 09/09/20 08:04 BP 172/75 09/09/20 01:21 Pulse Ox 93 L 09/09/20 01:21 Intake & Output 09/08/20 09/09/20 09/09/20 18:59 06:59 18:59 Intake Total 750 1140 Output Total 9 Balance 741 1140 Weight 59.7 kg Intake: IV 750 200 Intake, IV Titration 700 Amount Lactated Ringers 1,000 ml 600 @ 50 mls/hr IV .Q20H TARA Rx#:[id number] ceFAZolin 2 gm In Sodium 100 Chloride 0.9% 50 ml @ 100 mls/hr IVPB Q8H TARA Rx#: [id number] Oral 240 Output: Estimated Blood Loss 9 Other: Voiding Method Toilet # Voids 2 2 - Exam Left upper extremity: Postop splint is in good position and condition. Minimal soft tissue swelling noted in the fingers. Sensory exam both proximal and distal to the splinter intact. Cap refill is less than 2 seconds. Assessment and Plan Assessment: Status post ORIF left distal radius fracture Plan: Pain control, plan for discharge home on [place] 5 mg/325 mg Cast instructions were discussed with the patient Activity level restrictions discussed with patient Plan for discharge home today, plan [facility] 2 [facility] Time with Patient: Less than 30
--- NOTE | 2020-09-09 09:32 | P.DS ---
Providers Date of admission: 09/09/20 04:57 Expected date of discharge: 09/09/20 Attending physician: Juan Kerr Consults: 09/08/20 19:48 Consult Physician Routine Consulting Provider: Jose M Moon Consult Reason/Comments: Medical management Do you want consulting provider notified?: Yes Primary care physician: Bobbi Meyer Hospital Course: Date of admission: 09/08/2020 Date of discharge: 09/09/2020 Admission diagnosis: Status post ORIF left distal radius fracture Discharge diagnosis: Same Attending physician: Dr. Kerr Surgical procedures: Open reduction internal fixation left distal radius fracture Brief history: Patient is a 85-year-old female with a history of comminuted and displaced left distal radius fracture. Treatment options were discussed with Dr. Kerr in the outpatient setting, as determined surgical fixation would be the best form of treatment. She was scheduled for surgery on 09/09/2020. Hospital course: Details of patient's surgery can be found in operative report. Patient tolerated the procedure well and was subsequently transported to orthopedic floor. Patient's orthopeidc and medical care was provided daily. Patient had daily laboratory tests performed for evaluation of overall blood counts. Patient had daily physical therapy to include strengthening range of motion as well as education with walker ambulation. Patient was noted to have a relatively uneventful postoperative course. Patient reported satisfactory pain control with oral pain medications by postoperative day 0. Patient showed satisfactory progress with physical therapy. Patient moved steadily through the program and had no difficulty meeting the goals by postoperative day 1. Given patient's otherwise satisfactory course and having met physical therapy goals, plan is to discharge patient home on postoperative day 1. Discharge condition/disposition: Patient will be discharged home in stable condition. Discharge medications: Instructions are given on resumption of patient's normal daily medications per primary care recommendation, in addition patient will be prescribed [place] 5 mg/325 mg Discharge instructions: 1. Keep splint intact, do not remove. Keep covered while showering 2. Utilize arm sling as needed 3. Ice and elevate when necessary. Do not exceed 20 minutes per hour with ice pack. 4. Utilize compression sleeve until seen at first follow up appointment. 7. Pain meds and anticoagulants per prescription. 8. Pain medication has potential to cause constipation. Increase oral fluid and fiber intake. Contact primary care provider if you have not had a bowel movement within 48 hours after discharge 10. Follow up in office at 2 weeks postop with Antione Cm PA-C 11. Follow up with your primary care doctor 7-10 days after discharge. 12. Contact [facility] with any questions, . Procedures: Open reduction internal fixation right distal radius fracture Patient Condition at Discharge: Good Plan - Discharge Summary Discharge Rx Participant: No New Discharge Prescriptions: New HYDROcodone/APAP 5-325MG [[place] 5-325] 1 tab PO Q6HR PRN #28 tab PRN Reason: Pain No Action Vit C/E/Zn/Coppr/Lutein/Zeaxan [Preservision Areds 2 Softgel] 1 cap PO DAILY Cetirizine HCl [Zyrtec] 10 mg PO DAILY Hydrocodone/Acetaminophen [[place] 5-325] 1 tab PO Q6HR PRN #12 tab PRN Reason: Pain Multivit-Min/FA/Lycopen/Lutein [Centrum Silver Tablet] 1 each PO DAILY Discharge Medication List Cetirizine HCl [Zyrtec] 10 mg PO DAILY 08/01/20 [History] Vit C/E/Zn/Coppr/Lutein/Zeaxan [Preservision Areds 2 Softgel] 1 cap PO DAILY 08/01/20 [History] Hydrocodone/Acetaminophen [[place] 5-325] 1 tab PO Q6HR PRN #12 tab 09/01/20 [Rx] Multivit-Min/FA/Lycopen/Lutein [Centrum Silver Tablet] 1 each PO DAILY 09/07/20 [History] HYDROcodone/APAP 5-325MG [[place] 5-325] 1 tab PO Q6HR PRN #28 tab 09/08/20 [Rx] Follow up Appointment(s)/Referral(s): Bairon Cm PAC [PHYSICIAN SUPERVISOR CELL MAINTENANCE] - 2 Weeks (Please call and make follow up appt. office closed.) Patient Instructions/Handouts: *Surgery [facility] - (Anesthesia) Discharge Instructions Outpatient Surgery Activity/Diet/Wound Care/Special Instructions: Orthopedic discharge instructions: 1. Pain medication as needed 2. Keep splint covered and dry while showering 3. Do not remove the splint 4. Ice and elevate often 5. Okay to use [id number] Tylenol or anti-inflammatories as needed 6. Plan for [facility]up at [facility] 2 weeks, please contact office for any questions Discharge Disposition: HOME SELF-CARE
[2020-09-09] MEDS: METOPROLOL TARTRATE 25 MG TAB PO SCH ×2 (12:14→22:04)
--- NOTE | 2020-09-09 12:46 | P.CRDCN ---
History of Present Illness History of present illness: HISTORY OF PRESENTING ILLNESS This is a pleasant 85-year-old female past medical history significant for breast cancer s/p mastectomy and chemo and glaucoma. 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 We have been asked to see in consultation for chest pain and hypertension. She had a fall and left distal radius fracture. She underwent surgery with Dr. Kerr yesterday. Throughout her hospitalization her blood pressures have been running greater than 170 systolic. At times up to 230/83. Heart rate in the 60-80 range. She has also been experiencing some discomfort in the left axilla. She states to her it feels like a tug from her caste and sling. She states "my arm is so heavy that its pulling my shoulder and arm." She states it hurts worse when she is up moving around. She denies shortness of breath, dizziness or palpitations. DIAGNOSTICS EKG reveals left bundle branch block with left axis deviation. There are no old EKG's in the system or with Dr. Meyer's office. REVIEW OF SYSTEMS At the time of my exam: CONSTITUTIONAL: Denies fever or chills. CARDIOVASCULAR: Denies chest pain, shortness of breath, orthopnea, PND or palpitations. RESPIRATORY: Denies cough. GASTROINTESTINAL: Denies abdominal pain, diarrhea, constipation, nausea or vomiting. MUSCULOSKELETAL: Complains of discomfort in the left hand and arm. NEUROLOGIC: Denies numbness, tingling, headacbe or weakness. ENDOCRINE: Denies fatigue, weight change, polydipsia or polyurina. GENITOURINARY: Denies burning, hematuria or urgency with micturation. HEMATOLOGIC: Denies history of anemia or bleeding. PHYSICAL EXAMINATION Blood pressure 150/68 heart rate 74 afebrile and maintaining oxygen saturation on room air. CONSTITUTIONAL: No apparent distress. HEENT: Head is normocephalic. Pupils are equal, round. Sclerae anicteric. Mucous membranes of the mouth are moist. No JVD. Bilateral carotid bruit. CHEST EXAMINATION: Lungs are clear to auscultation. No chest wall tenderness is noted on palpation or with deep breathing. HEART EXAMINATION: Regular rate and rhythm. S1, S2 heard. Systolic ejection murmur at the left sternal border and apex, no gallops or rub. ABDOMEN: Soft, nontender. Positive bowel sounds. EXTREMITIES: Left arm caste and sling in place with some digit swelling and ecchymosis. No lower extremity swelling noted. NEUROLOGIC EXAMINATION: Patient is awake, alert and oriented x3. ASSESSMENT Chest pain Hypertension Left distal radius fracture s/p open reduction and internal fixation Left bundle branch block PLAN Obtain 2D echocardiogram and doppler study to assess cardiac structure and function. Initiate lopressor 25 mg BID. There is no old EKG at her PCP's office. Check BMP and troponin. Further recommendations to follow based on clinical course. Thank you kindly for this consultation. Nurse Practitioner note has been reviewed, I agree with a documented findings and plan of care. Patient was seen and examined. Past Medical History Past Medical History: Cancer, Eye Disorder, Musculoskeletal Disorder Additional Past Medical History / Comment(s): Glaucoma, breast cancer 1994-had surg. & chemo, fell @work 09-01-20 & fx. left wrist-current splint History of Any Multi-Drug Resistant Organisms: None Reported Past Surgical History: Breast Surgery, Hysterectomy Additional Past Surgical History / Comment(s): right mastectomy Past Anesthesia/Blood Transfusion Reactions: No Reported Reaction Smoking Status: Never smoker Medications and Allergies Home Medications Medication Instructions Recorded Confirmed Type Cetirizine HCl [Zyrtec] 10 mg PO DAILY 08/01/20 09/07/20 History Vit C/E/Zn/Coppr/Lutein/Zeaxan 1 cap PO DAILY 08/01/20 09/07/20 History [Preservision Areds 2 Softgel] Hydrocodone/Acetaminophen [[place] 1 tab PO Q6HR PRN #12 tab 09/01/20 09/07/20 Rx 5-325] Multivit-Min/FA/Lycopen/Lutein 1 each PO DAILY 09/07/20 09/07/20 History [Centrum Silver Tablet] HYDROcodone/APAP 5-325MG [[place] 1 tab PO Q6HR PRN #28 tab 09/08/20 Rx 5-325] Allergies Allergy/AdvReac Type Severity Reaction Status Date / Time No Known Allergies Allergy Verified 09/08/20 15:26 Physical Exam Vitals: Vital Signs Temp Pulse Resp BP Pulse Ox 09/09/20 11:32 98.1 F 74 16 150/68 94 L 09/09/20 08:04 90 16 09/09/20 01:21 97.8 F 98 16 172/75 93 L 09/08/20 23:30 86 16 153/79 95 09/08/20 21:19 97.4 F L 88 18 193/75 95 09/08/20 20:45 84 16 158/65 99 09/08/20 20:30 81 16 154/68 98 09/08/20 20:15 82 16 170/74 100 09/08/20 20:00 79 16 188/84 99 09/08/20 19:45 83 14 188/86 98 09/08/20 19:43 81 16 217/97 98 09/08/20 19:35 87 14 185/80 93 L 09/08/20 19:30 101 H 14 207/89 99 09/08/20 19:15 91 14 200/90 100 09/08/20 19:00 82 14 198/86 94 L 09/08/20 18:45 75 14 191/85 98 09/08/20 18:30 73 16 193/83 100 09/08/20 18:13 96.8 F L 68 16 230/83 96 09/08/20 16:42 60 177/85 98 09/08/20 15:29 97.3 F L 73 16 186/86 96 Intake and Output 09/08/20 09/09/20 09/09/20 22:59 06:59 14:59 Intake Total 1070 820 360 Output Total 9 Balance 1061 820 360 Intake: IV 950 Intake, IV Titration 700 Amount Lactated Ringers 1,000 ml 600 @ 50 mls/hr IV .Q20H [facility] Rx#:[id number] ceFAZolin 2 gm In Sodium 100 Chloride 0.9% 50 ml @ 100 mls/hr IVPB Q8H [facility] Rx#: [id number] Oral 120 120 360 Output: Estimated Blood Loss 9 Other: Voiding Method Toilet # Voids 2 2 Weight 59.7 kg Results Current Medications Generic Name Dose Route Start Last Admin Trade Name Freq PRN Reason Stop Dose Admin Hydrocodone Bitart/Acetaminophen 1 each 09/08/20 19:48 09/09/20 07:52 Hydrocodone/Apap 5-325mg 1 Each Tab PO 10/08/20 19:49 1 each Q6HR PRN Administration Pain Scale 1 to 5 Hydrocodone Bitart/Acetaminophen 2 each 09/08/20 19:48 Hydrocodone/Apap 5-325mg 1 Each Tab PO 10/08/20 19:49 Q6HR PRN Pain Scale 6 to 10 Hydromorphone HCl 0.5 mg 09/08/20 19:48 09/09/20 02:32 Hydromorphone 0.5 Mg/0.5 Ml Syringe IVP 10/08/20 19:49 0.5 mg Q3HR PRN Administration Pain Scale 7 to 10 Hydromorphone HCl 0.125 mg 09/08/20 19:48 Hydromorphone 0.5 Mg/0.5 Ml Syringe IVP 10/08/20 19:49 Q3HR PRN Pain Scale 1 to 3 Hydromorphone HCl 0.2 mg 09/08/20 19:48 Hydromorphone 0.2 Mg/1 Ml Syringe IVP 10/08/20 19:49 Q3HR PRN Pain Scale 4 to 6 Lactated Ringer's 1,000 mls @ 20 mls/hr 09/08/20 07:00 09/09/20 07:10 Lactated Ringers IV 10/08/20 07:01 Not Given .Q24H [facility] Lactated Ringer's 1,000 mls @ 50 mls/hr 09/08/20 20:00 09/08/20 23:47 Lactated Ringers IV 10/08/20 20:01 Not Given .Q20H [facility] Lidocaine HCl 0.1 ml 09/08/20 07:00 09/08/20 15:58 Lidocaine 1% (10mg/Ml) For Iv Start INTRADERMA 10/08/20 07:01 0.1 ml PER PROTOCOL PRN Administration IV Start Metoprolol Tartrate 25 mg 09/09/20 11:45 09/09/20 12:14 Metoprolol Tartrate 25 Mg Tab PO 25 mg BID [facility] Administration Ondansetron HCl 4 mg 09/08/20 19:48 09/09/20 02:33 Ondansetron 4 Mg/2 Ml Vial IVP 10/08/20 19:49 4 mg DAILY PRN Administration Nausea And Vomiting Intake and Output 09/08/20 09/09/20 09/09/20 22:59 06:59 14:59 Intake Total 1070 820 360 Output Total 9 Balance 1061 820 360 Intake: IV 950 Intake, IV Titration 700 Amount Lactated Ringers 1,000 ml 600 @ 50 mls/hr IV .Q20H [facility] Rx#:[id number] ceFAZolin 2 gm In Sodium 100 Chloride 0.9% 50 ml @ 100 mls/hr IVPB Q8H [facility] Rx#: [id number] Oral 120 120 360 Output: Estimated Blood Loss 9 Other: Voiding Method Toilet # Voids 2 2 Weight 59.7 kg
[2020-09-09 13:59] LABS: African American GFR (CKD) >90 (>60 ml/min/1.73 sqM); Anion Gap 3 mmol/L; Blood Urea Nitrogen 20 mg/dL (7-17); Calcium 9.5 mg/dL (8.4-10.2); Carbon Dioxide 29 mmol/L (22-30); Chloride 104 mmol/L (98-107); Glucose 102 mg/dL (74-99); Non-African American GFR(CKD) 81 (>60 ml/min/1.73 sqM); Potassium 4.8 mmol/L (3.5-5.1); Sodium 136 mmol/L (137-145)
[2020-09-09] MEDS ORDERED: CLINDAMYCIN 600 MG in DEXTROSE 5% IN WATER 50 ML IVPB SCH ×2 (16:00)
[2020-09-09] MEDS ORDERED: HEPARIN SODIUM,PORCINE 5,000 UNIT/ML 1 ML VIAL IV PRN (16:32)
[2020-09-09] MEDS ORDERED: HEPARIN SODIUM,PORCINE 5,000 UNIT/ML 1 ML VIAL IV ONE (16:32)
[2020-09-09 17:23] LABS: Prothrombin Time 10.8 sec (9.0-12.0)
[2020-09-09] MEDS: ASPIRIN 81 MG PO SCH (17:23)
[2020-09-09] MEDS: HEPARIN SOD,PORK IN 0.45% NACL 25,000 UNIT in 0.45% NACL 1 250ML.BAG IV SCH (17:23)
[2020-09-09 17:42] LABS: Basophils # (A) 0.1 k/uL (0-0.2); Basophils % (A) 0 %; Eosinophils # (A) 0.1 k/uL (0-0.7); Eosinophils % (A) 1 %; HCT 38.4 % (34.0-46.0); Lymphocytes # (A) 2.2 k/uL (1.0-4.8); Lymphocytes % (A) 18 %; MCH 27.6 pg (25.0-35.0); MCHC 31.3 g/dL (31.0-37.0); MCV 88.2 fL (80.0-100.0); Mean Platelet Volume 7.4; Monocytes # (A) 1.1 k/uL (0-1.0); Monocytes % (A) 9 %; Neutrophils # (A) 8.5 k/uL (1.3-7.7); Neutrophils % (A) 69 %; Platelet Count 377 k/uL (150-450); RBC 4.36 m/uL (3.80-5.40); RDW 14.3 % (11.5-15.5); WBC 12.3 k/uL (3.8-10.6)
--- NOTE | 2020-09-09 18:51 | ECHOF ---
Referral Reason:murmur cp MEASUREMENTS -------- HEIGHT: 157.5 cm WEIGHT: 59.4 kg BP: 150/68 RVIDd: 3.3 cm (< 3.3) IVSd: 1.6 cm (0.6 - 1.1) LVIDd: 3.3 cm (3.9 - 5.3) LVPWd: 1.6 cm (0.6 - 1.1) IVSs: 2.0 cm LVIDs: 2.4 cm LVPWs: 2.0 cm LAESV Index (A-L): 33.28 ml/m Ao Diam: 2.7 cm (2.0 - 3.7) AV Cusp: 1.6 cm (1.5 - 2.6) LA Diam: 4.2 cm (2.7 - 3.8) MV EXCURSION: 13.117 mm (> 18.000) MV EF SLOPE: 71 mm/s (70 - 150) EPSS: 0.5 cm MV E Michael: 1.07 m/s MV DecT: 215 ms MV A Michael: 0.36 m/s MV E/A Ratio: 2.96 RAP: 5.00 mmHg RVSP: 57.43 mmHg FINDINGS -------- Sinus rhythm. BBB This was a technically adequate study. The left ventricular size is normal. There is moderate concentric left ventricular hypertrophy. O verall left ventricular systolic function is low-normal with, an EF between 50 - 55 %. The right ventricle is mildly enlarged. LA is midly dilated 29-33ml/m2. The right atrium is mildly enlarged. Interatrial and interventricular septum intact. There is mild aortic valve sclerosis. There is no evidence of aortic regurgitation. There is no e vidence of aortic stenosis. The mitral valve leaflets are mildly thickened. [id number] mitral regurgitation is present. The tricuspid valve appears structurally normal. Moderate tricuspid regurgitation present. There is moderate to severe pulmonary hypertension. The right ventricular systolic pressure, as measured by Doppler, is 57.43mmHg. There is no pulmonic regurgitation present. The aortic root size is normal. Normal inferior vena cava with normal inspiratory collapse consistent with estimated right atrial pre ssure of 5 mmHg. There is no pericardial effusion. CONCLUSIONS -------- 1. There is moderate concentric left ventricular hypertrophy. 2. Overall left ventricular systolic function is low-normal with, an EF between 50 - 55 %. 3. The right ventricle is mildly enlarged. 4. LA is midly dilated 29-33ml/m2. 5. The right atrium is mildly enlarged. 6. There is mild aortic valve sclerosis. 7. [id number] mitral regurgitation is present. 8. Moderate tricuspid regurgitation present. 9. There is moderate to severe pulmonary hypertension. 10. There is no pericardial effusion. SPECIAL POLICE: Susan Ceja RDCS
--- NOTE | 2020-09-09 22:08 | P.CONS ---
History of Present Illness - Reason for Consult Consult date: 09/09/20 medical eval Requesting physician: Juan Kerr - Chief Complaint wrist fracture - History of Present Illness Stephanie Luciano is an 85 yo F with PMh of allergies who presented to the ED after she fell forward and fractured her distal radius. She underwent operative repair with Dr. Kerr yesterday. Today, she complains of arm pain but denies chest pain, shortness of breath, fever, or chills. She has been hypertensive since admission. Review of Systems All systems: negative Constitutional: Denies chills, Denies fever Eyes: denies blurred vision, denies pain Ears, nose, mouth and throat: Denies headache, Denies sore throat Cardiovascular: Denies chest pain, Denies shortness of breath Respiratory: Denies cough Gastrointestinal: Denies abdominal pain, Denies diarrhea, Denies nausea, Denies vomiting Genitourinary: Denies dysuria, Denies hematuria Musculoskeletal: Reports as per HPI, Reports fractures, Denies myalgias Integumentary: Denies pruritus, Denies rash Neurological: Denies numbness, Denies weakness Psychiatric: Denies anxiety, Denies depression Endocrine: Denies fatigue, Denies weight change Past Medical History Past Medical History: Cancer, Eye Disorder, Musculoskeletal Disorder Additional Past Medical History / Comment(s): Glaucoma, breast cancer 1994-had surg. & chemo, fell @work 09-01-20 & fx. left wrist-current splint History of Any Multi-Drug Resistant Organisms: None Reported Past Surgical History: Breast Surgery, Hysterectomy Additional Past Surgical History / Comment(s): right mastectomy Past Anesthesia/Blood Transfusion Reactions: No Reported Reaction Smoking Status: Never smoker Medications and Allergies Home Medications Medication Instructions Recorded Confirmed Type Cetirizine HCl [Zyrtec] 10 mg PO DAILY 08/01/20 09/07/20 History Vit C/E/Zn/Coppr/Lutein/Zeaxan 1 cap PO DAILY 08/01/20 09/07/20 History [Preservision Areds 2 Softgel] Hydrocodone/Acetaminophen [[place] 1 tab PO Q6HR PRN #12 tab 09/01/20 09/07/20 Rx 5-325] Multivit-Min/FA/Lycopen/Lutein 1 each PO DAILY 01/20/21 01/20/21 History [Centrum Silver Tablet] HYDROcodone/APAP 5-325MG [[place] 1 tab PO Q6HR PRN #28 tab 09/08/20 Rx 5-325] Allergies Allergy/AdvReac Type Severity Reaction Status Date / Time No Known Allergies Allergy Verified 09/08/20 15:26 Physical Exam Vitals: Vital Signs Temp Pulse Resp BP Pulse Ox 09/09/20 21:52 97.6 F 54 L 18 167/70 96 09/09/20 15:46 91 173/67 09/09/20 11:32 98.1 F 74 16 150/68 94 L 09/09/20 08:04 90 16 09/09/20 01:21 97.8 F 98 16 172/75 93 L 09/08/20 23:30 86 16 153/79 95 Intake and Output 09/09/20 09/09/20 09/09/20 06:59 14:59 22:59 Intake Total 429 688 6357 Balance 683 631 0685 Intake: Intake, IV Titration 700 Amount Lactated Ringers 1,000 ml 600 @ 50 mls/hr IV .Q20H [facility] Rx#:[id number] ceFAZolin 2 gm In Sodium 100 Chloride 0.9% 50 ml @ 100 mls/hr IVPB Q8H [facility] Rx#: [id number] Oral 590 448 9128 Other: Voiding Method Toilet # Voids 2 2 4 General: well nourished, well developed, NAD. Vitals reviewed Eyes: PERRL, EOMI, conjunctiva normal HENT: normocephalic, mucus membranes moist Neck: supple, no JVD Lungs: normal respiratory effort, no wheezes or rales CV: Regular rate and rhythm, no murmur. Peripheral pulses 2+ Abdomen: soft, nondistended, no organomegaly Lymph: no cervical or axillary LAD Skin: warm and dry. Neuro: A&Ox3, normal mood and affect Results CBC & Chem 7: 09/09/20 17:01 09/09/20 13:08 Labs: Abnormal Lab Results - Last 24 Hours (Table) 09/09/20 09/09/20 09/09/20 Range/Units 13:08 13:08 17:01 WBC 12.3 H (3.8-10.6) k/uL Neutrophils # 8.5 H (1.3-7.7) k/uL Monocytes # 1.1 H (0-1.0) k/uL Sodium 136 L (137-145) mmol/L BUN 20 H (7-17) mg/dL Glucose 102 H (74-99) mg/dL Troponin I 0.457 H* (0.000-0.034) ng/mL 09/09/20 Range/Units 17:01 WBC (3.8-10.6) k/uL Neutrophils # (1.3-7.7) k/uL Monocytes # (0-1.0) k/uL Sodium (137-145) mmol/L BUN (7-17) mg/dL Glucose (74-99) mg/dL Troponin I 0.579 H* (0.000-0.034) ng/mL Assessment and Plan (1) Essential hypertension Current Visit: Yes Status: Acute Code(s): I10 - ESSENTIAL (PRIMARY) HYPERTENSION SNOMED Code(s): 09155148 (2) Distal radius fracture, left Current Visit: No Status: Acute Code(s): S52.502A - UNSP FRACTURE OF THE LOWER END OF LEFT RADIUS, INIT SNOMED Code(s): 605687505 (3) Fall Current Visit: No Status: Acute Code(s): W19.XXXA - UNSPECIFIED FALL, INITIAL ENCOUNTER SNOMED Code(s): 0638708 (4) Wrist fracture, left Current Visit: No Status: Acute Code(s): S62.102A - FRACTURE OF UNSP CARPAL BONE, LEFT WRIST, INIT FOR CLOS FX SNOMED Code(s): 845266764 Plan: 1. Distal radius fracture. Management per ortho. Pain control 2. Essential hypertension. Start lisinopril 3. Allergic rhinitis. Continue with zyrtec
[2020-09-09] MEDS: ATORVASTATIN 40 MG TAB PO SCH (22:11)
[2020-09-09] MEDS: lisinopriL 5 MG TAB PO SCH (22:12)
[2020-09-10] MEDS: HYDROmorphone 0.5 MG/0.5 ML SYRINGE IVP PRN ×3 (03:15→23:36)
[2020-09-10 07:10] LABS: Basophils # (A) 0.1 k/uL (0-0.2); Basophils % (A) 1 %; Eosinophils # (A) 0.2 k/uL (0-0.7); Eosinophils % (A) 1 %; HCT 37.6 % (34.0-46.0); HGB 12.4 gm/dL (11.4-16.0); Lymphocytes # (A) 1.6 k/uL (1.0-4.8); Lymphocytes % (A) 12 %; MCH 28.7 pg (25.0-35.0); MCHC 32.9 g/dL (31.0-37.0); MCV 87.4 fL (80.0-100.0); Mean Platelet Volume 7.9; Monocytes # (A) 1.1 k/uL (0-1.0); Monocytes % (A) 8 %; Neutrophils # (A) 10.7 k/uL (1.3-7.7); Neutrophils % (A) 77 %; Platelet Count 304 k/uL (150-450); WBC 13.8 k/uL (3.8-10.6)
[2020-09-10] MEDS ORDERED: HEPARIN SODIUM,PORCINE 5,000 UNIT/ML 1 ML VIAL IV STA (07:52)
[2020-09-10] MEDS: lisinopriL 5 MG TAB PO SCH ×2 (08:18→19:59)
[2020-09-10] MEDS: METOPROLOL TARTRATE 25 MG TAB PO SCH ×2 (08:18→19:59)
[2020-09-10] MEDS: ASPIRIN 81 MG PO SCH (08:18)
[2020-09-10] MEDS: HYDROcodone/APAP 5-325MG 1 EACH TAB PO PRN ×3 (08:18→23:17)
[2020-09-10 11:50] LABS: African American GFR (CKD) 97.7 (60.0-200.0); Anion Gap 7.3 mmol/L (4.00-12.00); Calcium 8.6 mg/dL (8.7-10.3); Carbon Dioxide 26.7 mmol/L (21.6-31.8); Non-African American GFR(CKD) 84.3 (60.0-200.0); Potassium 4.3 mmol/L (3.5-5.5)
--- NOTE | 2020-09-10 13:21 | P.PN ---
Subjective Progress Note Date: 09/10/20 Principal diagnosis: status post ORIF left distal radius fracture Patient notes her pain is controlled. Denies chest pain or shortness of breath. Objective - Vital Signs Vital signs: Vital Signs Temp 97.6 F 09/10/20 12:20 Pulse 52 L 09/10/20 12:20 Resp 16 09/10/20 12:20 BP 138/63 09/10/20 12:20 Pulse Ox 97 09/10/20 12:20 Intake & Output 09/09/20 09/10/20 09/10/20 18:59 06:59 18:59 Intake Total 1920 52.178 177.62 Balance 1920 52.178 177.62 Intake: Intake, IV Titration 52.178 59.62 Amount Heparin Sod,Pork in 0.45% 52.178 59.62 NaCl 25,000 unit In 0.45 % NaCl 1 250ml.bag @ 12 UNITS/KG/HR 7.164 mls/hr IV .Q24H [facility] Rx#: [id number] Oral 1920 118 Other: Voiding Method Toilet Toilet Toilet # Voids 4 4 - Exam left wrist splint intact light touch intact left digits fires left finger flexors/extensors - Constitutional General appearance: Present: no acute distress - Labs CBC & Chem 7: 09/10/20 06:31 09/10/20 06:31 Labs: Abnormal Lab Results - Last 24 Hours (Table) 09/09/20 09/09/20 09/09/20 Range/Units 13:08 13:08 17:01 WBC 12.3 H (3.8-10.6) k/uL Neutrophils # 8.5 H (1.3-7.7) k/uL Monocytes # 1.1 H (0-1.0) k/uL APTT (22.0-30.0) sec Sodium 136 L (137-145) mmol/L BUN 20 H (7-17) mg/dL BUN/Creatinine Ratio (12.00-20.00) Ratio Glucose 102 H (74-99) mg/dL Calcium (8.7-10.3) mg/dL Troponin I 0.457 H* (0.000-0.034) ng/mL 09/09/20 09/09/20 09/10/20 Range/Units 17:01 23:41 06:31 WBC 13.8 H (3.8-10.6) k/uL Neutrophils # 10.7 H (1.3-7.7) k/uL Monocytes # 1.1 H (0-1.0) k/uL APTT 43.2 H (22.0-30.0) sec Sodium (137-145) mmol/L BUN (7-17) mg/dL BUN/Creatinine Ratio (12.00-20.00) Ratio Glucose (74-99) mg/dL Calcium (8.7-10.3) mg/dL Troponin I 0.579 H* (0.000-0.034) ng/mL 09/10/20 09/10/20 Range/Units 06:31 06:31 WBC (3.8-10.6) k/uL Neutrophils # (1.3-7.7) k/uL Monocytes # (0-1.0) k/uL APTT 38.3 H (22.0-30.0) sec Sodium (137-145) mmol/L BUN (7-17) mg/dL BUN/Creatinine Ratio 30.00 H (12.00-20.00) Ratio Glucose (74-99) mg/dL Calcium 8.6 L (8.7-10.3) mg/dL Troponin I (0.000-0.034) ng/mL Assessment and Plan Assessment: s/p ORIF left distal radius fracture NSTEMI Plan: Activity per cardiology pain control will moniter Time with Patient: Less than 30
--- NOTE | 2020-09-10 14:01 | P.PN ---
Subjective Progress Note Date: 09/10/20 HISTORY OF PRESENTING ILLNESS This is a pleasant 85-year-old female past medical history significant for breast cancer s/p mastectomy and chemo and glaucoma. 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 We have been asked to see in consultation for chest pain and hypertension. She had a fall and left distal radius fracture. She underwent surgery with Dr. Kerr yesterday. Throughout her hospitalization her blood pressures have been running greater than 170 systolic. At times up to 230/83. Heart rate in the 60-80 range. She has also been experiencing some discomfort in the left axilla. She states to her it feels like a tug from her caste and sling. She states "my arm is so heavy that its pulling my shoulder and arm." She states it hurts worse when she is up moving around. She denies shortness of breath, dizziness or palpitations. Pt with elevated troponin. Will treat as NSTEMI and initiate atorvastatin 40 mg daily and heparin infusion. Discussed with [facility] for ortho and they are ok with heparin infusion at this time. Further recommendations to follow. DIAGNOSTICS EKG reveals left bundle branch block with left axis deviation. There are no old EKG's in the system or with Dr. Meyer's office. 09/10: Patient denies any chest pain at the time of evaluation. She apparently did have some left-sided chest pain which is completely gone and she denies having any over the nighttime. She continues to have pain in her left wrist area. Troponins have been 0.457, 0.579 and a repeat was ordered this morning at 0.413. Echocardiogram reveals EF of 50-55% with moderate concentric left ventricular hypertrophy, mild to moderate mitral regurgitation, moderate tricuspid regurgitation, moderate to severe pulmonary hypertension. PHYSICAL EXAMINATION Patient is been afebrile, heart rate 50s and 60s, blood pressure 138/63, pulse ox 97% on room air. CONSTITUTIONAL: No apparent distress. HEENT: Head is normocephalic. Pupils are equal, round. Sclerae anicteric. Mucous membranes of the mouth are moist. No JVD. Bilateral carotid bruit. CHEST EXAMINATION: Lungs are clear to auscultation. No chest wall tenderness is noted on palpation or with deep breathing. HEART EXAMINATION: Regular rate and rhythm. S1, S2 heard. Systolic ejection murmur at the left sternal border and apex, no gallops or rub. ABDOMEN: Soft, nontender. Positive bowel sounds. EXTREMITIES: Left arm caste and sling in place with some digit swelling and ecchymosis. No lower extremity swelling noted. NEUROLOGIC EXAMINATION: Patient is awake, alert and oriented x3. ASSESSMENT Chest pain and possible non-ST elevated myocardial infarction Hypertension Left distal radius fracture s/p open reduction and internal fixation Left bundle branch block PLAN Continue lopressor 25 mg BID. Continue atorvastatin 40 mg daily and heparin infusion. Further recommendations to follow. Thank you kindly for this consultation. Nurse Practitioner note has been reviewed, I agree with a documented findings and plan of care. Patient was seen and examined. Objective - Vital Signs Vital signs: Vital Signs Temp 98.1 F 09/10/20 08:15 Pulse 68 09/10/20 08:15 Resp 16 09/10/20 08:15 BP 179/77 09/10/20 08:15 Pulse Ox 94 L 09/10/20 08:15 Intake & Output 09/09/20 09/10/20 09/10/20 18:59 06:59 18:59 Intake Total 1920 52.178 177.62 Balance 1920 52.178 177.62 Intake: Intake, IV Titration 52.178 59.62 Amount Heparin Sod,Pork in 0.45% 52.178 59.62 NaCl 25,000 unit In 0.45 % NaCl 1 250ml.bag @ 12 UNITS/KG/HR 7.164 mls/hr IV .Q24H [facility] Rx#: [id number] Oral 1920 118 Other: Voiding Method Toilet Toilet Toilet # Voids 4 4 - Labs CBC & Chem 7: 09/10/20 06:31 09/10/20 06:31 Labs: Abnormal Lab Results - Last 24 Hours (Table) 09/09/20 09/09/20 09/09/20 Range/Units 13:08 13:08 17:01 WBC 12.3 H (3.8-10.6) k/uL Neutrophils # 8.5 H (1.3-7.7) k/uL Monocytes # 1.1 H (0-1.0) k/uL APTT (22.0-30.0) sec Sodium 136 L (137-145) mmol/L BUN 20 H (7-17) mg/dL BUN/Creatinine Ratio (12.00-20.00) Ratio Glucose 102 H (74-99) mg/dL Calcium (8.7-10.3) mg/dL Troponin I 0.457 H* (0.000-0.034) ng/mL 09/09/20 09/09/20 09/10/20 Range/Units 17:01 23:41 06:31 WBC 13.8 H (3.8-10.6) k/uL Neutrophils # 10.7 H (1.3-7.7) k/uL Monocytes # 1.1 H (0-1.0) k/uL APTT 43.2 H (22.0-30.0) sec Sodium (137-145) mmol/L BUN (7-17) mg/dL BUN/Creatinine Ratio (12.00-20.00) Ratio Glucose (74-99) mg/dL Calcium (8.7-10.3) mg/dL Troponin I 0.579 H* (0.000-0.034) ng/mL 09/10/20 09/10/20 Range/Units 06:31 06:31 WBC (3.8-10.6) k/uL Neutrophils # (1.3-7.7) k/uL Monocytes # (0-1.0) k/uL APTT 38.3 H (22.0-30.0) sec Sodium (137-145) mmol/L BUN (7-17) mg/dL BUN/Creatinine Ratio 30.00 H (12.00-20.00) Ratio Glucose (74-99) mg/dL Calcium 8.6 L (8.7-10.3) mg/dL Troponin I (0.000-0.034) ng/mL
--- NOTE | 2020-09-10 14:58 | P.PN ---
Subjective This is a pleasant 85 years old female with past medical history of glaucoma, breast cancer in 1994. She presents because of fall and fracture to her left wrist and radius. 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 And she underwent open reduction and internal fixation of the left radius fracture. Postprocedure and the same night she developed left-sided chest pain which is resolved in the morning. Troponin were checked and they were elevated 0.4, 0.5 and 0.4. Airplane Fueler has been consulted Echocardiogram showed ejection fraction of 50-55%, with mild to moderate mitral regurgitation and moderate tricuspid regurgitation and moderate LVH S Objective - Vital Signs Vital signs: Vital Signs Temp 97.6 F 09/10/20 12:20 Pulse 52 L 09/10/20 12:20 Resp 16 09/10/20 14:00 BP 138/63 09/10/20 12:20 Pulse Ox 97 09/10/20 12:20 Intake & Output 09/09/20 09/10/20 09/10/20 18:59 06:59 18:59 Intake Total 1920 52.178 177.62 Balance 1920 52.178 177.62 Intake: Intake, IV Titration 52.178 59.62 Amount Heparin Sod,Pork in 0.45% 52.178 59.62 NaCl 25,000 unit In 0.45 % NaCl 1 250ml.bag @ 12 UNITS/KG/HR 7.164 mls/hr IV .Q24H [facility] Rx#: [id number] Oral 1920 118 Other: Voiding Method Toilet Toilet Toilet # Voids 4 4 - Exam GENERAL: The patient is alert and oriented x3, not in any acute distress. Well developed, well nourished. HEENT: Pupils are round and equally reacting to light. EOMI. No scleral icterus. No conjunctival pallor. Normocephalic, atraumatic. No pharyngeal erythema. No thyromegaly. CARDIOVASCULAR: S1 and S2 present. No murmurs, rubs, or gallops. PULMONARY: Chest is clear to auscultation, no wheezing or crackles. ABDOMEN: Soft, nontender, nondistended, normoactive bowel sounds. No palpable organomegaly. MUSCULOSKELETAL: No joint swelling or deformity. EXTREMITIES: No cyanosis, clubbing, or pedal edema. Left upper extremity in a sling and wrist splint NEUROLOGICAL: Gross neurological examination did not reveal any focal deficits. SKIN: No rashes. no petechiae. - Labs CBC & Chem 7: 09/10/20 06:31 09/10/20 06:31 Labs: Abnormal Lab Results - Last 24 Hours (Table) 09/09/20 09/09/20 09/09/20 Range/Units 13:08 17:01 17:01 WBC 12.3 H (3.8-10.6) k/uL Neutrophils # 8.5 H (1.3-7.7) k/uL Monocytes # 1.1 H (0-1.0) k/uL APTT (22.0-30.0) sec BUN/Creatinine Ratio (12.00-20.00) Ratio Calcium (8.7-10.3) mg/dL Troponin I 0.457 H* 0.579 H* (0.000-0.034) ng/mL 09/09/20 09/10/20 09/10/20 Range/Units 23:41 06:31 06:31 WBC 13.8 H (3.8-10.6) k/uL Neutrophils # 10.7 H (1.3-7.7) k/uL Monocytes # 1.1 H (0-1.0) k/uL APTT 43.2 H (22.0-30.0) sec BUN/Creatinine Ratio 30.00 H (12.00-20.00) Ratio Calcium 8.6 L (8.7-10.3) mg/dL Troponin I (0.000-0.034) ng/mL 09/10/20 09/10/20 Range/Units 06:31 12:35 WBC (3.8-10.6) k/uL Neutrophils # (1.3-7.7) k/uL Monocytes # (0-1.0) k/uL APTT 38.3 H (22.0-30.0) sec BUN/Creatinine Ratio (12.00-20.00) Ratio Calcium (8.7-10.3) mg/dL Troponin I 0.413 H* (0.000-0.034) ng/mL Assessment and Plan Assessment: tatus post fall and fracture of the left radius and wrist, status post open reduction and internal fixation by orthopedic team Chest pain with Elevated troponin, rule out acute coronary syndrome or active coronary artery disease Moderate mitral regurgitation and moderate tricuspid regurgitation Plan: This is a pleasant 85 years old female who presents with left radial fracture status post ORIF, her hospital course complicated by chest pain and high troponin, follow-up recommendation by practice architect, continue with metoprolol, continue with heparin drip started by cardiology team. Continue with aspirin 81 mg. Orthopedic primary team to care for the fracture postop care Labs and medication were reviewed.. Continue same treatment. Continue with symptomatic treatment. Resume home medication. Monitor lytes and vitals. DVT and GI prophylaxis. Further recommendationsas per clinical course of the patient DVT prophylaxis: heparin GI Prophylaxis: Pepcid PT/OT: Pending Prognosis is guarded
[2020-09-10] MEDS: LACTATED RINGERS 1,000 ML IV SCH ×2 (17:54→18:50)
[2020-09-10] MEDS: HEPARIN SOD,PORK IN 0.45% NACL 25,000 UNIT in 0.45% NACL 1 250ML.BAG IV SCH (17:57)
[2020-09-10] MEDS: ATORVASTATIN 40 MG TAB PO SCH (19:59)
[2020-09-10] MEDS: FAMOTIDINE 20 MG/2 ML VIAL IV SCH (19:59)
[2020-09-11] MEDS: HYDROmorphone 0.5 MG/0.5 ML SYRINGE IVP PRN ×2 (03:53→15:44)
[2020-09-11 04:38] LABS: Basophils # (A) 0.1 k/uL (0-0.2); Basophils % (A) 1 %; Eosinophils # (A) 0.5 k/uL (0-0.7); Eosinophils % (A) 5 %; HCT 37.2 % (34.0-46.0); HGB 12.5 gm/dL (11.4-16.0); Lymphocytes # (A) 2.1 k/uL (1.0-4.8); Lymphocytes % (A) 24 %; MCH 29.1 pg (25.0-35.0); MCHC 33.6 g/dL (31.0-37.0); MCV 86.8 fL (80.0-100.0); Mean Platelet Volume 7.3; Monocytes # (A) 0.9 k/uL (0-1.0); Monocytes % (A) 10 %; Neutrophils # (A) 5.1 k/uL (1.3-7.7); Neutrophils % (A) 58 %; Platelet Count 331 k/uL (150-450); RBC 4.29 m/uL (3.80-5.40); RDW 13.9 % (11.5-15.5); WBC 8.8 k/uL (3.8-10.6)
[2020-09-11] MEDS: HYDROcodone/APAP 5-325MG 1 EACH TAB PO PRN ×3 (05:45→20:51)
[2020-09-11] MEDS: lisinopriL 5 MG TAB PO SCH (05:46)
[2020-09-11] MEDS: METOPROLOL TARTRATE 25 MG TAB PO SCH ×2 (05:46→20:51)
[2020-09-11] MEDS: ASPIRIN 81 MG PO SCH (09:23)
[2020-09-11] MEDS: FAMOTIDINE 20 MG/2 ML VIAL IV SCH ×2 (09:23→20:51)
[2020-09-11] MEDS ORDERED: lisinopriL 5 MG TAB PO STA (09:51)
--- NOTE | 2020-09-11 09:59 | P.PN ---
Subjective Progress Note Date: 09/11/20 Principal diagnosis: Status post ORIF left distal radius fracture Patient notes she is doing well today. She denies shortness of breath or chest pain. She has mild soreness in the left wrist. Objective - Vital Signs Vital signs: Vital Signs Temp 97.3 F L 09/11/20 08:00 Pulse 59 L 09/11/20 08:00 Resp 18 09/11/20 08:00 BP 134/84 09/11/20 08:00 Pulse Ox 95 09/11/20 08:00 Intake & Output 09/10/20 09/11/20 09/11/20 18:59 06:59 18:59 Intake Total 632.682 563.515 120 Balance 632.682 563.515 120 Intake: Intake, IV Titration 154.682 88.515 Amount Heparin Sod,Pork in 0.45% 154.682 88.515 NaCl 25,000 unit In 0.45 % NaCl 1 250ml.bag @ 12 UNITS/KG/HR 7.164 mls/hr IV .Q24H [facility] Rx#: [id number] Oral 478 475 120 Other: Voiding Method Toilet Toilet # Voids 2 3 - Exam Left upper extremity splint intact. No focal motor or sensory deficits left upper extremity. - Constitutional General appearance: Present: no acute distress - Labs CBC & Chem 7: 09/11/20 04:12 09/10/20 06:31 Labs: Abnormal Lab Results - Last 24 Hours (Table) 09/10/20 09/10/20 09/10/20 Range/Units 06:31 12:35 14:15 APTT 78.8 H (22.0-30.0) sec BUN/Creatinine Ratio 30.00 H (12.00-20.00) Ratio Calcium 8.6 L (8.7-10.3) mg/dL Troponin I 0.413 H* (0.000-0.034) ng/mL 09/10/20 09/11/20 Range/Units 21:27 04:12 APTT 67.0 H 48.6 H (22.0-30.0) sec BUN/Creatinine Ratio (12.00-20.00) Ratio Calcium (8.7-10.3) mg/dL Troponin I (0.000-0.034) ng/mL Assessment and Plan Assessment: Status post ORIF left distal radius fracture Coronary artery disease/possible non-ST elevation myocardial infarction Plan: Activity per cardiology. She continues on a heparin drip per cardiology. Stable from an orthopedic standpoint. Time with Patient: Less than 30
--- NOTE | 2020-09-11 11:29 | P.PN ---
Subjective Progress Note Date: 09/11/20 HISTORY OF PRESENTING ILLNESS This is a pleasant 85-year-old female past medical history significant for breast cancer s/p mastectomy and chemo and glaucoma. She denies prior history of coronary artery disease and does not follow in the office with a sample sawyer. We have been asked to see in consultation for chest pain and hypertension. She had a fall and left distal radius fracture. She underwent surgery with Dr. Kerr yesterday. Throughout her hospitalization her blood pressures have been running greater than 170 systolic. At times up to 230/83. Heart rate in the 60-80 range. She has also been experiencing some discomfort in the left axilla. She states to her it feels like a tug from her caste and sling. She states "my arm is so heavy that its pulling my shoulder and arm." She states it hurts worse when she is up moving around. She denies shortness of breath, dizziness or palpitations. Pt with elevated troponin. Will treat as NSTEMI and initiate atorvastatin 40 mg daily and heparin infusion. Discussed with [facility] for ortho and they are ok with heparin infusion at this time. Further recommendations to follow. DIAGNOSTICS EKG reveals left bundle branch block with left axis deviation. There are no old EKG's in the system or with Dr. Meyer's office. 09/10: Patient denies any chest pain at the time of evaluation. She apparently did have some left-sided chest pain which is completely gone and she denies having any over the nighttime. She continues to have pain in her left wrist area. Troponins have been 0.457, 0.579 and a repeat was ordered this morning at 0.413. Echocardiogram reveals EF of 50-55% with moderate concentric left ventricular hypertrophy, mild to moderate mitral regurgitation, moderate tricuspid regurgitation, moderate to severe pulmonary hypertension. 09/11: Patient continued to have arm pain throughout the night and has been receiving both [place] and IV Dilaudid through the night. Blood pressure has been elevated 185/74 patient received her. Her blood pressure Lopressor early this morning. We will plan to increase lisinopril. Her heart rate has been in the 60s, afebrile, pulse ox 94% on room air. She is continued on heparin drip. She currently denies having any chest pain. We'll plan to make patient nothing by mouth after midnight tonight, continue heparin drip and discuss case with Dr. Oscar for possible heart catheterization tomorrow. PHYSICAL EXAMINATION CONSTITUTIONAL: No apparent distress. HEENT: Head is normocephalic. Pupils are equal, round. Sclerae anicteric. Mucous membranes of the mouth are moist. No JVD. Bilateral carotid bruit. CHEST EXAMINATION: Lungs are clear to auscultation. No chest wall tenderness is noted on palpation or with deep breathing. HEART EXAMINATION: Regular rate and rhythm. S1, S2 heard. Systolic ejection murmur at the left sternal border and apex, no gallops or rub. ABDOMEN: Soft, nontender. Positive bowel sounds. EXTREMITIES: Left arm caste and sling in place with some digit swelling and ecchymosis. No lower extremity swelling noted. NEUROLOGIC EXAMINATION: Patient is awake, alert and oriented x3. ASSESSMENT Chest pain secondary to non-ST elevated myocardial infarction Hypertension Left distal radius fracture s/p open reduction and internal fixation Left bundle branch block PLAN Continue lopressor 25 mg BID. Continue atorvastatin 40 mg daily and heparin infusion. Increase lisinopril to 10 mg twice daily and additional 5 mg now. Patient to be nothing by mouth after midnight for possible heart catheterization tomorrow. Case will be discussed with Dr. Oscar. Further recommendations to follow. Thank you kindly for this consultation. Nurse Practitioner note has been reviewed, I agree with a documented findings and plan of care. Patient was seen and examined. Objective - Vital Signs Vital signs: Vital Signs Temp 97.3 F L 09/11/20 08:00 Pulse 59 L 09/11/20 08:00 Resp 18 09/11/20 08:00 BP 134/84 09/11/20 08:00 Pulse Ox 95 09/11/20 08:00 Intake & Output 09/10/20 09/11/20 09/11/20 18:59 06:59 18:59 Intake Total 632.682 563.515 120 Balance 632.682 563.515 120 Intake: Intake, IV Titration 154.682 88.515 Amount Heparin Sod,Pork in 0.45% 154.682 88.515 NaCl 25,000 unit In 0.45 % NaCl 1 250ml.bag @ 12 UNITS/KG/HR 7.164 mls/hr IV .Q24H [facility] Rx#: [id number] Oral 478 475 120 Other: Voiding Method Toilet Toilet Toilet # Voids 2 3 2 - Labs CBC & Chem 7: 09/11/20 04:12 09/10/20 06:31 Labs: Abnormal Lab Results - Last 24 Hours (Table) 09/10/20 09/10/20 09/10/20 Range/Units 06:31 12:35 14:15 APTT 78.8 H (22.0-30.0) sec BUN/Creatinine Ratio 30.00 H (12.00-20.00) Ratio Calcium 8.6 L (8.7-10.3) mg/dL Troponin I 0.413 H* (0.000-0.034) ng/mL 09/10/20 09/11/20 Range/Units 21:27 04:12 APTT 67.0 H 48.6 H (22.0-30.0) sec BUN/Creatinine Ratio (12.00-20.00) Ratio Calcium (8.7-10.3) mg/dL Troponin I (0.000-0.034) ng/mL
--- NOTE | 2020-09-11 12:21 | P.PN ---
Subjective This is a pleasant 85 years old female with past medical history of glaucoma, breast cancer in 1994. She presents because of fall and fracture to her left wrist and radius. 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 And she underwent open reduction and internal fixation of the left radius fracture. Postprocedure and the same night she developed left-sided chest pain which is resolved in the morning. Troponin were checked and they were elevated 0.4, 0.5 and 0.4. Manager Quality has been consulted Echocardiogram showed ejection fraction of 50-55%, with mild to moderate mitral regurgitation and moderate tricuspid regurgitation and moderate LVH 09/11/2020 Patient lying in bed comfortable not in distress. No chest pain or dyspnea. She still have heparin drip running, vitals and labs are stable. Manager Quality are planning for cardiac cath tomorrow Her left upper extremity is in cast and orthopedic team are following Objective - Vital Signs Vital signs: Vital Signs Temp 97.3 F L 09/11/20 08:00 Pulse 59 L 09/11/20 08:00 Resp 18 09/11/20 08:00 BP 134/84 09/11/20 08:00 Pulse Ox 95 09/11/20 08:00 Intake & Output 09/10/20 09/11/20 09/11/20 18:59 06:59 18:59 Intake Total 632.682 563.515 120 Balance 632.682 563.515 120 Intake: Intake, IV Titration 154.682 88.515 Amount Heparin Sod,Pork in 0.45% 154.682 88.515 NaCl 25,000 unit In 0.45 % NaCl 1 250ml.bag @ 12 UNITS/KG/HR 7.164 mls/hr IV .Q24H [facility] Rx#: [id number] Oral 478 475 120 Other: Voiding Method Toilet Toilet Toilet # Voids 2 3 2 - Exam GENERAL: The patient is alert and oriented x3, not in any acute distress. Well developed, well nourished. HEENT: Pupils are round and equally reacting to light. EOMI. No scleral icterus. No conjunctival pallor. Normocephalic, atraumatic. No pharyngeal erythema. No thyromegaly. CARDIOVASCULAR: S1 and S2 present. No murmurs, rubs, or gallops. PULMONARY: Chest is clear to auscultation, no wheezing or crackles. ABDOMEN: Soft, nontender, nondistended, normoactive bowel sounds. No palpable organomegaly. MUSCULOSKELETAL: No joint swelling or deformity. EXTREMITIES: No cyanosis, clubbing, or pedal edema. Left upper extremity in a sling and wrist splint NEUROLOGICAL: Gross neurological examination did not reveal any focal deficits. SKIN: No rashes. no petechiae. - Labs CBC & Chem 7: 09/11/20 04:12 09/10/20 06:31 Labs: Abnormal Lab Results - Last 24 Hours (Table) 09/10/20 09/10/20 09/10/20 Range/Units 12:35 14:15 21:27 APTT 78.8 H 67.0 H (22.0-30.0) sec Troponin I 0.413 H* (0.000-0.034) ng/mL 09/11/20 Range/Units 04:12 APTT 48.6 H (22.0-30.0) sec Troponin I (0.000-0.034) ng/mL Assessment and Plan Assessment: tatus post fall and fracture of the left radius and wrist, status post open reduction and internal fixation by orthopedic team Chest pain with Elevated troponin, rule out acute coronary syndrome or active coronary artery disease Moderate mitral regurgitation and moderate tricuspid regurgitation Plan: This is a pleasant 85 years old female who presents with left radial fracture status post ORIF, her hospital course complicated by chest pain and high troponin, follow-up recommendation by logistics intern, continue with metoprolol, continue with heparin drip started by cardiology team. Continue with aspirin 81 mg. Orthopedic primary team to care for the fracture postop care. Patient is going for cardiac cath more Labs and medication were reviewed.. Continue same treatment. Continue with sy mptomatic treatment. Resume home medication. Monitor lytes and vitals. DVT and GI prophylaxis. Further recommendationsas per clinical course of the patient DVT prophylaxis: heparin GI Prophylaxis: Pepcid PT/OT: Pending Prognosis is guarded
[2020-09-11] MEDS: ATORVASTATIN 40 MG TAB PO SCH (20:51)
[2020-09-11] MEDS: lisinopriL 10 MG TAB PO SCH (20:51)
[2020-09-12] MEDS: ASPIRIN 81 MG PO SCH (05:59)
[2020-09-12] MEDS: METOPROLOL TARTRATE 25 MG TAB PO SCH ×2 (05:59→23:16)
[2020-09-12] MEDS: lisinopriL 10 MG TAB PO SCH (05:59)
[2020-09-12] MEDS: FAMOTIDINE 20 MG/2 ML VIAL IV SCH ×2 (05:59→20:18)
[2020-09-12 07:08] LABS: Basophils # (A) 0.1 k/uL (0-0.2); Basophils % (A) 1 %; Eosinophils # (A) 0.5 k/uL (0-0.7); Eosinophils % (A) 6 %; HCT 42.3 % (34.0-46.0); HGB 13.7 gm/dL (11.4-16.0); Lymphocytes # (A) 1.5 k/uL (1.0-4.8); Lymphocytes % (A) 18 %; MCH 28.1 pg (25.0-35.0); MCHC 32.4 g/dL (31.0-37.0); MCV 86.9 fL (80.0-100.0); Mean Platelet Volume 7.9; Monocytes # (A) 0.7 k/uL (0-1.0); Monocytes % (A) 8 %; Neutrophils # (A) 5.4 k/uL (1.3-7.7); Neutrophils % (A) 65 %; Platelet Count 349 k/uL (150-450); RBC 4.87 m/uL (3.80-5.40); RDW 13.9 % (11.5-15.5); WBC 8.3 k/uL (3.8-10.6)
[2020-09-12] MEDS: HEPARIN SOD,PORK IN 0.45% NACL 25,000 UNIT in 0.45% NACL 1 250ML.BAG IV SCH (08:23)
[2020-09-12] MEDS ORDERED: ALPRAZolam 0.5 MG TAB PO PRN (10:11)
[2020-09-12] MEDS ORDERED: SODIUM CHLORIDE 0.9% 1,000 ML in EMPTY BAG 1 BAG IV ONE (10:11)
[2020-09-12] MEDS ORDERED: NITROGLYCERIN SL TABS 0.4 MG TAB SUBLINGUAL PRN (10:11)
[2020-09-12] MEDS ORDERED: ALPRAZolam 0.25 MG TAB PO PRN (10:11)
[2020-09-12] MEDS ORDERED: ASPIRIN 81 MG PO STA (10:13)
--- NOTE | 2020-09-12 10:47 | P.PN ---
Subjective Progress Note Date: 09/12/20 Stephanie Luciano is an 85 yo F with PMh of allergies who presented to the ED after she fell forward and fractured her distal radius. She underwent operative repair with Dr. Kerr yesterday. Today, she complains of arm pain but denies chest pain, shortness of breath, fever, or chills. She has been hypertensive since admission. 09/12/20 NPO, possible cardiac catheterization today. BAHMAN inhibitor increased y esterday as per cardiology. Hypertensive, complaining of left wrist pain with movement of fingers. Denies any chest pain, palpitations or shortness of breath. Denies any pressure. States no chest pain or pressure or shortness of breath yesterday either. Reports when she does have chest pain, stress induced. Objective - Vital Signs Vital signs: Vital Signs Temp 97.6 F 09/12/20 04:00 Pulse 50 L 09/12/20 04:00 Resp 18 09/12/20 04:00 BP 181/77 09/12/20 04:00 Pulse Ox 96 09/12/20 04:00 Intake & Output 09/11/20 09/12/20 09/12/20 18:59 06:59 18:59 Intake Total 600 161.485 Balance 600 161.485 Weight 61.4 kg Intake: Intake, IV Titration 161.485 Amount Heparin Sod,Pork in 0.45% 161.485 NaCl 25,000 unit In 0.45 % NaCl 1 250ml.bag @ 12 UNITS/KG/HR 7.164 mls/hr IV .Q24H [facility] Rx#: [id number] Oral 600 Other: Voiding Method Toilet # Voids 2 2 - Exam General: Sitting up in bed, NAD. Vitals reviewed Eyes: PERRL, EOMI, conjunctiva normal HENT: normocephalic, mucus membranes dry-NPO Neck: supple, no JVD Lungs: normal respiratory effort,CTA CV: Regular rate and rhythm, systolic murmur. Peripheral pulses 2+ Abdomen: soft, nondistended, no organomegaly Skin: warm and dry. No rash. Left upper extremity cast present. Fingers warm, mild edema and ecchymosis freely moves fingers Neuro: A&Ox3, normal mood and affect - Labs CBC & Chem 7: 09/12/20 06:34 09/10/20 06:31 Labs: Abnormal Lab Results - Last 24 Hours (Table) 09/12/20 Range/Units 06:34 APTT 38.6 H (22.0-30.0) sec Assessment and Plan Assessment: Chest pain secondary to the NSTEMI, Mild to moderate Moderate mitral regurgitation Moderate tricuspid regurgitation Moderate to severe pulmonary hypertension Left bundle branch block Distal radius fracture, left, status post open reduction and internal fixation Fall Essential hypertension Plan: Continue current medication regime, monitoring and symptomatically treatment. Anticoagulated on heparin drip, maintained on beta gisele, statin, BAHMAN inhibitor. NPO,Potential heart catheterization today as per cardiology. The impression and plan of care has been dictated as directed. .: I performed a history and examination of this patient, discussed the same with the dictator. I agree with the dictator's note ,documented as a scribe. Any additional findings or plans will be noted.
[2020-09-12] MEDS ORDERED: fentaNYL (PF) 50 MCG/ML 2 ML AMP ONE (10:49)
[2020-09-12] MEDS ORDERED: LIDOCAINE 1% INJ 10MG/ML (20 ML MDV) ONE (10:49)
[2020-09-12] MEDS ORDERED: fentaNYL (PF) 50 MCG/ML 2 ML AMP IVP ONE (11:00)
[2020-09-12] MEDS ORDERED: IV FLUID CONTINUATION 250 ML IV ONE (11:01)
[2020-09-12] MEDS ORDERED: LIDOCAINE 1% INJ 10MG/ML (20 ML MDV) SQ ONE (11:02)
[2020-09-12] MEDS ORDERED: amLODIPine 5 MG TAB ONE (11:03)
[2020-09-12] MEDS ORDERED: MIDAZOLAM 2 MG/2 ML VIAL IVP ONE (11:06)
[2020-09-12] MEDS ORDERED: amLODIPine 5 MG TAB PO ONE (11:09)
[2020-09-12] MEDS ORDERED: HEPARIN SODIUM 1,000 UN/ML (10ML VL) IV ONE ×2 (11:09→11:25)
[2020-09-12] MEDS ORDERED: CLOPIDOGREL 75 MG TAB ONE (11:16)
[2020-09-12] MEDS ORDERED: IOPAMIDOL-370 125ML BTL INJ ONE ×2 (11:24→11:50)
[2020-09-12] MEDS ORDERED: SODIUM CHLORIDE 0.9% 500 ML 500 ML IV ONE (11:24)
[2020-09-12] MEDS ORDERED: HEPARIN SODIUM 1,000 UN/ML (10ML VL) ONE (11:26)
[2020-09-12] MEDS ORDERED: NITROGLYCERIN 1000MCG/10ML SYRINGE INTRACORON ONE ×2 (11:35→11:46)
[2020-09-12] MEDS ORDERED: CLOPIDOGREL 75 MG TAB PO ONE (11:35)
--- NOTE | 2020-09-12 11:55 | P.PN ---
Subjective Progress Note Date: 09/12/20 Principal diagnosis: Status post ORIF left distal radius fracture Patient evaluated at bedside. Patient is going for a cardiac catheterization this morning. Her pain is controlled with current medication. Denies any headaches, lightheadedness, shortness of breath, fever chills, nausea vomiting. Objective - Vital Signs Vital signs: Vital Signs Temp 98 F 09/12/20 10:12 Pulse 48 L 09/12/20 10:12 Resp 15 09/12/20 10:12 BP 178/57 09/12/20 10:12 Pulse Ox 96 09/12/20 10:12 Intake & Output 09/11/20 09/12/20 09/12/20 18:59 06:59 18:59 Intake Total 600 161.485 150 Balance 600 161.485 150 Weight 61.4 kg Intake: IV 150 Intake, IV Titration 161.485 Amount Heparin Sod,Pork in 0.45% 161.485 NaCl 25,000 unit In 0.45 % NaCl 1 250ml.bag @ 12 UNITS/KG/HR 7.164 mls/hr IV .Q24H [facility] Rx#: [id number] Oral 600 Other: Voiding Method Toilet # Voids 2 2 2 - Exam Left upper extremity: Postop splint is in good position and condition. Minimal soft tissue swelling noted in the fingers. Sensory exam both proximal and distal to the splinter intact. Cap refill is less than 2 seconds. - Labs CBC & Chem 7: 09/12/20 06:34 09/10/20 06:31 Labs: Abnormal Lab Results - Last 24 Hours (Table) 09/12/20 Range/Units 06:34 APTT 38.6 H (22.0-30.0) sec Assessment and Plan Assessment: Status post ORIF left distal radius fracture Plan: Pain control, continue use of current oral medication Cast instructions were discussed with the patient Activity level restrictions discussed with patient Primary admission is being transferred over to internal medicine at this time. Orthopedically she remained stable for discharge to home with plan for follow-up in the outpatient setting in 2 weeks We will be available for any further questions regarding this patient Time with Patient: Less than 30
[2020-09-12] MEDS ORDERED: IOPAMIDOL-370 100ML BTL INJ ONE (12:05)
[2020-09-12] MEDS ORDERED: MAG HYDROX/AL HYDROX/SIMETH 30 ML CUP PO PRN (12:20)
[2020-09-12] MEDS ORDERED: ATROPINE SULFATE 0.1 MG/ML 10ML SYRINGE IV PRN (12:20)
[2020-09-12] MEDS ORDERED: ZOLPIDEM 5 MG TAB PO PRN (12:20)
[2020-09-12] MEDS ORDERED: RX INFO: IV CONTRAST WAS GIVEN 1 EACH MISC MISCELLANE PRN (12:20)
[2020-09-12] MEDS ORDERED: SODIUM CHLORIDE 0.9% 1,000 ML IV SCH (12:30)
--- NOTE | 2020-09-12 13:00 | PTCA ---
PERCUTANEOUSTRANS CORORONARY ANGIOGRAPHY Mrs. Luciano is an 85-year-old female who presented to undergo surgery on her left arm. After having surgery, she started to have chest discomfort and with some mild troponin elevation. In view of that, she underwent cardiac catheterization and was found to have critical stenosis involving the LAD and the right coronary artery. Recommendations were made regarding angioplasty and stenting. The procedures, risks, and complications were discussed with the patient who is in full understanding and agreement. PROCEDURE DETAILS: An attempt to cannulate the right coronary artery using 6-Cypriot FR4 guiding catheter were unsuccessful. That catheter was removed and a 6-Cypriot 0.775 AL1 guiding catheter was introduced. After cannulating the ostium of the right coronary artery, a 0.014 balanced medium weight J-wire was advanced and positioned distally. Then a 2.5 x 12 mm Trek NC emergent balloon was advanced. One inflation at 10 atmospheres was done. Following that, the balloon was removed and a 3.0 x 15 mm Xience Misti stent was deployed. It was dilated at 16 atmospheres. After the last inflation, after appropriate wait, the balloon and the guidewire were withdrawn back in the guiding catheter. Images were obtained, repeated. Those images reveal stable successful stenting. At that point, the guiding catheter, the balloon and the guidewire were removed. A 6-Cypriot FR4 guiding catheter was introduced into the system. After cannulating the left main, the 0.014 balanced medium weight J-wire was advanced and positioned in the distal LAD. Subsequently, the 2.5 x 12 mm NC Emerge balloon was advanced and two inflations at 8 atmospheres were done. Following that the balloon was removed and a 3.25 x 33 mm Xience Misti stent was advanced, deployed and post dilated at 16 atmospheres. Following that the balloon was removed and a 3.5 x 15 mm NC Emerge balloon was advanced and two inflations at a maximum of 12 atmospheres were done. After the last inflation, after appropriate wait, the balloon and the guidewire were withdrawn back in the guiding catheter. Images were obtained and repeated. Those images reveal stable successful stenting. At that point, the guiding catheter, the balloon and the guidewire were removed. The sheath was removed. Hemostasis was obtained with deployment of the Angio-Seal. There was no immediate complication. The patient was returned to his room in stable condition. Of note, the patient received a total of 7000 units of intravenous heparin. Her ACT was followed and she received an oral loading dose of clopidogrel. RESULTS: 1. Successful stenting of the proximal RCA with reduction of stenosis from 99% to 0%. 2. Successful stenting of the proximal LAD with reduction of stenosis from 99% to 0%. RECOMMENDATION: Patient will be continued on aspirin, Plavix, beta gisele, BAHMAN inhibitor, statin. The importance of dual antiplatelet treatment were discussed with the patient and she is in full understanding and agreement. Duration of sedation is 61 minutes. MMODL / IJN: [id number] /
--- NOTE | 2020-09-12 13:00 | LTR ---
DATE OF SERVICE: 09/12/[address] Meyer: I had the pleasure of performing cardiac catheterization and coronary angioplasty on Mrs. Luciano at [facility] on September 12. A full copy of procedure note will be forwarded to you. In brief, she was found to have critical stenosis involving the proximal RCA and proximal LAD and underwent successful stenting of both vessels. I am hopeful that this procedure will stabilize her status. Thank you again for allowing me to participate in her care. Please feel free to call for any questions. Sincerely, RONY / ASHN: [id number] /
[2020-09-12] MEDS ORDERED: LORazepam 2 MG/ML INJ IV STA (13:03)
--- NOTE | 2020-09-12 13:03 | CC ---
CARDIAC CATHETERIZATION REPORT Mrs. Luciano is an 85-year-old female with no prior documented history of coronary artery disease who had a fractured left wrist, underwent surgery and following surgery she had chest discomfort with minimal troponin elevation. In view of that, recommendation was made regarding cardiac catheterization. The procedures, risks, and complications were discussed with the patient who is in full understanding and agreement. PROCEDURE DETAILS: Patient was brought to cathodic protection technician in a fasting semisedated state. After receiving fentanyl and Benadryl and achieving moderate conscious sedated state, using Xylocaine anesthesia and Seldinger technique, a 6-Belarusian sheath was introduced in the right femoral artery. Selective right and left coronary angiography was performed using 6- Belarusian 4 bend right and left Yaquelin catheter. Multiple views of the coronary artery including hemiaxial views obtained. Following that, the right Yaquelin catheter was used to cross the aortic valve and left ventricular end-diastolic pressure was calculated. Following that the catheter was removed, images were reviewed. FINDINGS: LEFT MAIN: This is a large-sized vessel, bifurcating into left circumflex, left anterior descending artery. Left main coronary artery has no evidence of high-grade stenosis. LEFT ANTERIOR DESCENDING ARTERY: This is a large-sized vessel reaching toward the apex with a wraparound the apex segment. Tortuous in the mid and distal segment giving rise to 2 diagonal branches, the first one is proximal and small in caliber. The second diagonal branch is moderate in size. In the proximal segment at the takeoff of the first septal help desk support extending too close to the second diagonal branch, there is a long tubular lesion of severe stenosis with area up to 99%. After the takeoff of the second diagonal branch, there is an area of stenosis of about 40%. The rest of the vessel has no high-grade stenosis. LEFT CIRCUMFLEX: This is a nondominant vessel, large in caliber giving rise to 2 obtuse marginal branches. The first one is very proximal. The first obtuse marginal branch has diffuse intimal disease of 70% proximally. The second obtuse marginal branch is large in caliber and has no evidence of high-grade stenosis. RIGHT CORONARY ARTERY: This is a large dominant vessel, tortuous in mid segment, giving rise to a PDA and PLV. The right coronary artery proximally has a 99% stenosis. The rest of the vessel has no high-grade stenosis. LEFT VENTRICULOGRAM: Left ventriculogram was not performed. HEMODYNAMICS: There was no gradient across the aortic valve. The left ventricular end-diastolic pressure was 14-18 mmHg. CONCLUSION: 1. Critical stenosis involving the proximal LAD in a long segment. 2. Critical stenosis in the proximal right coronary artery. 3. Moderate significant disease in the first obtuse marginal branch. RECOMMENDATION: In view of findings and anatomy, I recommend proceeding with angioplasty and stenting of the right coronary artery and the left anterior descending artery. The procedures, risks, and complications were discussed with the patient who is in full understanding and agreement. MMODL / IJN: [id number] /
[2020-09-12] MEDS: HYDROmorphone 0.5 MG/0.5 ML SYRINGE IVP PRN ×2 (14:04→20:15)
[2020-09-12] MEDS ORDERED: hydrALAZINE HCL 20 MG/ML 1 ML VIAL IVP STA (14:07)
[2020-09-12] MEDS: hydroCHLOROthiazide 25 MG TAB PO SCH (14:25)
--- NOTE | 2020-09-12 15:07 | P.PN ---
Subjective HISTORY OF PRESENTING ILLNESS This is a pleasant 85-year-old female past medical history significant for breast cancer s/p mastectomy and chemo and glaucoma. She denies prior history of coronary artery disease and does not follow in the office with a welfare analyst. She is seen and examined sitting up in bed in no acute distress. She denies active episodes of chest discomfort. She has no shortness of breath, dizziness or palpitations. Blood pressure 178/57 heart rate 48 afebrile maintaining oxygen saturation on room air. Laboratory data reviewed, CBC unremarkable. Currently maintained on aspirin 81 mg daily, atorvastatin 40 mg daily, heparin infusion, lisinopril 10 mg twice a day and metoprolol 25 mg twice a day. PHYSICAL EXAMINATION CONSTITUTIONAL: No apparent distress. HEENT: Head is normocephalic. Pupils are equal, round. Sclerae anicteric. Mucous membranes of the mouth are moist. No JVD. Bilateral carotid bruit. CHEST EXAMINATION: Lungs are clear to auscultation. No chest wall tenderness is noted on palpation or with deep breathing. HEART EXAMINATION: Regular rate and rhythm. S1, S2 heard. Systolic ejection murmur at the left sternal border and apex, no gallops or rub. EXTREMITIES: Left arm caste and sling in place with some digit swelling and ecchymosis. No lower extremity swelling noted. ASSESSMENT Chest pain Hypertension Left distal radius fracture s/p open reduction and internal fixation Left bundle branch block Mitral regurgitation Tricuspid regurgitation Pulmonary hypertension PLAN Decrease Lopressor to 25 mg in the morning and 12.5 mg at bedtime. Patient is scheduled to undergo cardiac catheterization today with Dr. Oscar. I have discussed the risks, benefits and alternative therapies for the above- mentioned procedure and for both sedation/analgesia as well as necessary blood product administration, if indicated, as they pertain to this patient. The patient has indicated understanding and acceptance of the risks and procedures discussed. Questions have been answered properly and she is agreeable to move forward with the above-stated procedure. Further recommendations to follow based upon clinical course. Nurse Practitioner note has been reviewed, I agree with a documented findings and plan of care. Patient was seen and examined. Objective - Vital Signs Vital signs: Vital Signs Temp 98 F 09/12/20 10:12 Pulse 48 L 09/12/20 10:12 Resp 15 09/12/20 10:12 BP 178/57 09/12/20 10:12 Pulse Ox 96 09/12/20 10:12 Intake & Output 09/11/20 09/12/20 09/12/20 18:59 06:59 18:59 Intake Total 600 161.485 150 Balance 600 161.485 150 Weight 61.4 kg Intake: IV 150 Intake, IV Titration 161.485 Amount Heparin Sod,Pork in 0.45% 161.485 NaCl 25,000 unit In 0.45 % NaCl 1 250ml.bag @ 12 UNITS/KG/HR 7.164 mls/hr IV .Q24H [facility] Rx#: [id number] Oral 600 Other: Voiding Method Toilet # Voids 2 2 2 - Labs CBC & Chem 7: 09/12/20 06:34 09/10/20 06:31 Labs: Abnormal Lab Results - Last 24 Hours (Table) 09/12/20 Range/Units 06:34 APTT 38.6 H (22.0-30.0) sec
[2020-09-12] MEDS ORDERED: HALOPERIDOL LACTATE 5 MG/ML 1 ML VIAL IVP STA (16:35)
[2020-09-12] MEDS ORDERED: amLODIPine 5 MG TAB PO STA (17:50)
[2020-09-12] MEDS ORDERED: METOPROLOL TARTRATE 25 MG TAB PO STA (17:50)
[2020-09-12] MEDS: NITROGLYCERIN SL TABS 0.4 MG TAB SUBLINGUAL PRN ×2 (17:57→18:44)
[2020-09-12] MEDS ORDERED: LABETALOL 5 MG/ML VIAL MDV IVP PRN (18:30)
[2020-09-12] MEDS ORDERED: METOPROLOL TARTRATE 12.5 MG TAB PO SCH (21:00)
[2020-09-12] MEDS: lisinopriL 20 MG TAB PO SCH (23:16)
[2020-09-12] MEDS: ATORVASTATIN 40 MG TAB PO SCH (23:16)
[2020-09-13] MEDS: HYDROmorphone 0.5 MG/0.5 ML SYRINGE IVP PRN ×2 (01:08→04:59)
[2020-09-13] MEDS ORDERED: HEPARIN SODIUM,PORCINE 2,500 UNIT in SODIUM CHLORIDE 0.9% 250 ML IRRIGATION PRN (07:00)
[2020-09-13] MEDS ORDERED: HEPARIN SODIUM,PORCINE 10,000 UNIT in SODIUM CHLORIDE 0.9% 1,000 ML IRRIGATION PRN (07:00)
[2020-09-13 07:48] LABS: African American GFR (CKD) >90 (>60 ml/min/1.73 sqM); Anion Gap 7 mmol/L; Blood Urea Nitrogen 19 mg/dL (7-17); Calcium 9.2 mg/dL (8.4-10.2); Carbon Dioxide 23 mmol/L (22-30); Chloride 106 mmol/L (98-107); Glucose 102 mg/dL (74-99); Non-African American GFR(CKD) 85 (>60 ml/min/1.73 sqM); Sodium 136 mmol/L (137-145)
[2020-09-13 08:00] LABS: Potassium 4.6 mmol/L (3.5-5.1)
[2020-09-13 08:28] LABS: Basophils % (A) 0 %; Eosinophils % (A) 0 %; HCT 38.1 % (34.0-46.0); Lymphocytes # (A) 1.3 k/uL (1.0-4.8); Lymphocytes % (A) 8 %; MCH 29.2 pg (25.0-35.0); MCHC 34.1 g/dL (31.0-37.0); MCV 85.7 fL (80.0-100.0); Mean Platelet Volume 7.6; Monocytes # (A) 1.3 k/uL (0-1.0); Monocytes % (A) 8 %; Neutrophils # (A) 13.9 k/uL (1.3-7.7); Neutrophils % (A) 83 %; Platelet Count 344 k/uL (150-450); RBC 4.45 m/uL (3.80-5.40); RDW 14.1 % (11.5-15.5); WBC 16.8 k/uL (3.8-10.6)
[2020-09-13] MEDS ORDERED: METOPROLOL TARTRATE 25 MG TAB PO SCH (09:00)
[2020-09-13] MEDS ORDERED: ASPIRIN 81 MG PO SCH (09:00)
[2020-09-13] MEDS: METOPROLOL TARTRATE 25 MG TAB PO SCH (09:29)
[2020-09-13] MEDS: hydroCHLOROthiazide 25 MG TAB PO SCH (09:29)
[2020-09-13] MEDS: lisinopriL 20 MG TAB PO SCH (09:29)
[2020-09-13] MEDS: FAMOTIDINE 20 MG/2 ML VIAL IV SCH (09:29)
[2020-09-13 10:17] VITALS: RESP 16; TEMP 98.1
--- NOTE | 2020-09-13 11:10 | P.PN ---
Subjective HISTORY OF PRESENTING ILLNESS This is a pleasant 85-year-old female past medical history significant for breast cancer s/p mastectomy and chemo and glaucoma. She denies prior history of coronary artery disease and does not follow in the office with a senior environmental technician. She is seen and examined laying flat in bed in no acute distress. She is still confused. Yesterday after her cath she was confused and not acting appropriately. A director of public safety has been at the bedside. Femstop was applied after the procedure due to some oozing and the fact that she would not sit still or lay flat. Her blood pressure was also elevated and she was not taking her pills. A dose of IV hydralazine was given and her blood pressure has normalized. She denies chest pain, shortness of breath, dizziness or palpitations. Blood pressure 151/59 heart rate 92 afebrile and maintaining oxygen saturation on room air. Laboratory data reviewed, WBC 16.8, hgb 13, plt 344, sodium 136, potassium 4.6 and creatinine 0.6. PHYSICAL EXAMINATION CONSTITUTIONAL: No apparent distress. HEENT: Head is normocephalic. Pupils are equal, round. Sclerae anicteric. Mucous membranes of the mouth are moist. No JVD. Bilateral carotid bruit. CHEST EXAMINATION: Lungs are clear to auscultation. No chest wall tenderness is noted on palpation or with deep breathing. HEART EXAMINATION: Regular rate and rhythm. S1, S2 heard. Systolic ejection murmur at the left sternal border and apex, no gallops or rub. EXTREMITIES: Left arm caste and sling in place with some digit swelling and ecchymosis. No lower extremity swelling noted. Right femoral access site soft, non-tender, no hematoma and mild ecchymosis. ASSESSMENT Chest pain Hypertension Left distal radius fracture s/p open reduction and internal fixation Left bundle branch block Mitral regurgitation Tricuspid regurgitation Pulmonary hypertension PLAN Stable on current medical regimen. The importance of dual anti-platelet therapy discussed with the patient. Follow up with Dr. Oscar in 1-week. Nurse Practitioner note has been reviewed, I agree with a documented findings and plan of care. Patient was seen and examined. Objective - Vital Signs Vital signs: Vital Signs Temp 98.1 F 09/13/20 08:00 Pulse 92 09/13/20 08:00 Resp 16 09/13/20 08:00 BP 151/59 09/13/20 08:00 Pulse Ox 96 09/13/20 08:00 Intake & Output 09/12/20 09/13/20 09/13/20 18:59 06:59 18:59 Intake Total 250 300 Output Total 2600 810 125 Balance -2350 -510 -125 Weight 60.5 kg Intake: IV 250 Intake, IV Titration 200 Amount Sodium Chloride 0.9% 1, 200 000 ml @ 75 mls/hr IV . [id number] [facility] Rx#:[id number] Oral 100 Output: Urine 1650 810 125 Uretheral (Leonard) 950 125 125 Post Void Residual 950 Other: Voiding Method Toilet Indwelling Catheter # Voids 2 - Labs CBC & Chem 7: 09/13/20 07:12 09/13/20 07:12 Labs: Abnormal Lab Results - Last 24 Hours (Table) 09/13/20 09/13/20 Range/Units 07:12 07:12 WBC 16.8 H (3.8-10.6) k/uL Neutrophils # 13.9 H (1.3-7.7) k/uL Monocytes # 1.3 H (0-1.0) k/uL Sodium 136 L (137-145) mmol/L BUN 19 H (7-17) mg/dL Glucose 102 H (74-99) mg/dL
[2020-09-13] MEDS ORDERED: CLOPIDOGREL 75 MG TAB PO SCH (12:00)
[2020-09-13] MEDS ORDERED: ACETAMINOPHEN TAB 500 MG TAB PO PRN (14:22)
[2020-09-13 14:51] VITALS: BP 126/50; PULSE 70
--- NOTE | 2020-09-13 14:56 | P.DS ---
Providers Date of admission: 09/10/20 09:52 Expected date of discharge: 09/13/20 Attending physician: Jose M Moon MD Consults: 09/08/20 19:48 Consult Physician Routine Consulting Provider: Jose M Moon Consult Reason/Comments: Medical management Do you want consulting provider notified?: Yes 09/09/20 11:35 Consult Physician Routine Consulting Provider: Terry Oscar Consult Reason/Comments: Chest pain, HTN Do you want consulting provider notified?: Already Contacted 09/12/20 12:20 Consult Physician Routine Consulting Provider: [facility] Consult Reason/Comments: Post Interventional patient Do you want consulting provider notified?: Already Contacted Primary care physician: Bobbi Meyer [facility] Course: Final Diagnoses: Chest pain secondary to the NSTEMI, status post cardiac catheterization reporting critical stenosis involving proximal RCA and proximal LAD with successful stenting of both vessels. Mild to moderate Moderate mitral regurgitation Moderate tricuspid regurgitation Moderate to severe pulmonary hypertension Left bundle branch block Distal radius fracture, left, status post open reduction and internal fixation Fall Essential hypertension Hospital course:Stephanie Luciano is an 85 yo F with PMh of allergies who presented to the ED after she fell forward and fractured her distal radius. She underwent operative repair with Dr. Kerr yesterday. Today, she complains of arm pain but denies chest pain, shortness of breath, fever, or chills. She has been hypertensive since admission. 09/12/20 NPO, possible cardiac catheterization today. BAHAMN inhibitor increased yesterday as per cardiology. Hypertensive, complaining of left wrist pain with movement of fingers. Denies any chest pain, palpitations or shortness of breath . Denies any pressure. States no chest pain or pressure or shortness of breath yesterday either. Reports when she does have chest pain, stress induced. Yesterday she underwent cardiac catheterization, reporting critical stenosis involving the proximal LAD and proximal RCA with moderate significant disease in the first OM, and proceeded with angioplasty and stenting of the RCA and LAD. Postprocedure patient developed some confusion, consultant in ergonomics and safety placed at bedside. Sensorium significantly improved. Leonard catheter removed, voiding spontaneously without difficulty. A & O3 . Cleared by cardiology and orthopedic surgery for discharge .Patient will be discharged home today in a stable condition with guarded prognosis. General: Sitting up in bed, NAD. HENT: normocephalic, mucus membranes moist Neck: supple, no JVD Lungs: normal respiratory effort,CTA CV: Regular rate and rhythm, systolic murmur. Peripheral pulses 2+ Abdomen: soft, nondistended, no organomegaly, positive bowel sounds Skin: warm and dry. No rash. Left upper extremity cast present. Fingers warm, mild edema and ecchymosis freely moves fingers Neuro: A&Ox3, normal mood and affect The impression and plan of care has been dictated as directed. : I performed a history and examination of this patient, discussed the same with the dictator. I agree with the dictator's note ,documented as a scribe. Any ad ditional findings or plans will be noted. Patient Condition at Discharge: Stable Plan - Discharge Summary Discharge Rx Participant: No New Discharge Prescriptions: New HYDROcodone/APAP 5-325MG [Hanson 5-325] 1 tab PO Q6HR PRN #28 tab PRN Reason: Pain Aspirin 81 mg PO DAILY chew hydroCHLOROthiazide [Hydrodiuril] 25 mg PO DAILY #90 tab Atorvastatin [Lipitor] 40 mg PO HS #90 tab Metoprolol Tartrate [Lopressor] 25 mg PO BID #180 tab Nitroglycerin Sl Tabs [Nitrostat] 0.4 mg SUBLINGUAL Q5M PRN #1 bottle PRN Reason: Chest Pain Clopidogrel [Plavix] 75 mg PO DAILY #90 tab lisinopriL [Zestril] 20 mg PO BID #90 tab Continue Vit C/E/Zn/Coppr/Lutein/Zeaxan [Preservision Areds 2 Softgel] 1 cap PO DAILY Cetirizine HCl [Zyrtec] 10 mg PO DAILY Hydrocodone/Acetaminophen [Hanson 5-325] 1 tab PO Q6HR PRN #12 tab PRN Reason: Pain Multivit-Min/FA/Lycopen/Lutein [Centrum Silver Tablet] 1 each PO DAILY Discharge Medication List Cetirizine HCl [Zyrtec] 10 mg PO DAILY 08/01/20 [History] Vit C/E/Zn/Coppr/Lutein/Zeaxan [Preservision Areds 2 Softgel] 1 cap PO DAILY 08/01/20 [History] Hydrocodone/Acetaminophen [Hanson 5-325] 1 tab PO Q6HR PRN #12 tab 09/01/20 [Rx] Multivit-Min/FA/Lycopen/Lutein [Centrum Silver Tablet] 1 each PO DAILY 09/07/20 [History] HYDROcodone/APAP 5-325MG [Hanson 5-325] 1 tab PO Q6HR PRN #28 tab 09/08/20 [Rx] Aspirin 81 mg PO DAILY chew 09/13/20 [Rx] Atorvastatin [Lipitor] 40 mg PO HS #90 tab 09/13/20 [Rx] Clopidogrel [Plavix] 75 mg PO DAILY #90 tab 09/13/20 [Rx] Metoprolol Tartrate [Lopressor] 25 mg PO BID #180 tab 09/13/20 [Rx] Nitroglycerin Sl Tabs [Nitrostat] 0.4 mg SUBLINGUAL Q5M PRN #1 bottle 09/13/20 [Rx] hydroCHLOROthiazide [Hydrodiuril] 25 mg PO DAILY #90 tab 09/13/20 [Rx] lisinopriL [Zestril] 20 mg PO BID #90 tab 09/13/20 [Rx] Follow up Appointment(s)/Referral(s): Terry Oscar MD [STAFF PHYSICIAN] - 1 Week (OFFICES WILL CALL WITH AN AN APPOINTMENT DATE AND TIME) Jose M Moon MD [STAFF PHYSICIAN] - 09/19/20 10:45 am (To be seen in the [place] office ) Bairon Cm PAC [PHYSICIAN WATCHSTANDER] - 09/28/20 1:50 pm () Patient Instructions/Handouts: *Surgery [facility] - (Anesthesia) Discharge Instructions Outpatient Surgery, Heart Catheterization (DC) Activity/Diet/Wound Care/Special Instructions: Orthopedic discharge instructions: 1. Pain medication as needed 2. Keep splint covered and dry while showering 3. Do not remove the splint 4. Ice and elevate often 5. Okay to use [id number] Tylenol or anti-inflammatories as needed 6. Plan [facility], please contact office for any questions
[2020-09-13] MEDS ORDERED: FAMOTIDINE 20 MG TAB PO SCH (21:00)
== END 2020-09-13 16:05 | disposition home or self-care (01) | DRG 246 ==
LOC: OR 15:10 → 5NMEDONC 20:08 → OR 09-09 04:38 → 5NMEDONC 09-09 04:57 → 3SCARD 09-10 07:22 → OBSVTOIN 09-10 09:52 → 3SCARD 09-12 03:44
PROVIDERS: ADMIT Family Medicine; ATTEND Family Medicine
PROC: B2111ZZ Fluoroscopy of Multiple Coronary Arteries using Low Osmolar Contrast (ICD-10-PCS; principal; 2020-09-10)
PROC: 4A023N7 Measurement of Cardiac Sampling and Pressure, Left Heart, Percutaneous Approach (ICD-10-PCS; principal; 2020-09-10)
PROC: 027135Z Dilation of Coronary Artery, Two Arteries with Two Drug-eluting Intraluminal Devices, Percutaneous Approach (ICD-10-PCS; principal; 2020-09-10)
PROC: 0PSJ04Z Reposition Left Radius with Internal Fixation Device, Open Approach (ICD-10-PCS; 2020-09-10)
DX: I21.4 Non-ST elevation (NSTEMI) myocardial infarction (principal); G93.41 Metabolic encephalopathy; S52.502A Unspecified fracture of the lower end of left radius, initial encounter for closed fracture; I25.10 Atherosclerotic heart disease of native coronary artery without angina pectoris; R33.9 Retention of urine, unspecified; I27.20 Pulmonary hypertension, unspecified; I08.1 Rheumatic disorders of both mitral and tricuspid valves; W19.XXXA Unspecified fall, initial encounter; I44.7 Left bundle-branch block, unspecified; I10 Essential (primary) hypertension; M19.90 Unspecified osteoarthritis, unspecified site; H40.9 Unspecified glaucoma; Z92.21 Personal history of antineoplastic chemotherapy; Z90.710 Acquired absence of both cervix and uterus; Z79.899 Other long term (current) drug therapy; Z85.3 Personal history of malignant neoplasm of breast; Z90.11 Acquired absence of right breast and nipple; Z79.82 Long term (current) use of aspirin
CPT/HCPCS: 64415; 76942; 80048; 84484; 85025; 85347; 85610; 85730; 93306; 93458

== ENCOUNTER 2020-12-23 09:27 | Inpatient (IN) | payer MEDICARE ==
[2020-12-23] MEDS ORDERED: SODIUM CHLORIDE 0.9% 1,000 ML IV STA (09:58)
--- NOTE | 2020-12-23 10:00 | ED ---
General Adult HPI - General Chief complaint: Nausea/Vomiting/Diarrhea Stated complaint: Vomiting,Diarrhea,Back Pain Time Seen by Provider: 12/23/20 09:35 Source: patient, RN notes reviewed, old records reviewed Mode of arrival: ambulatory Limitations: no limitations - History of Present Illness Initial comments: This is an 85-year-old female who presents emergency Department complaining that she has had nausea vomiting diarrhea almost every day for the last 2 months. Patient states the diarrhea is much worse. Patient states the diarrhea is preventing her from working because she has to go to the bathroom every couple of hours. Patient states she has also some mid back pain which she states is new. Patient states usually that hurts first and then she has episodes of nausea vomiting diarrhea. Patient denies any chest pain difficulty breathing shortness of breath. Patient denies any recent fever chills or cough. Patient denies any headache patient denies numbness weakness. Patient denies lightheadedness or dizziness. - Related Data Home Medications Medication Instructions Recorded Confirmed Cetirizine HCl [Zyrtec] 10 mg PO DAILY 08/01/20 12/23/20 Vit C/E/Zn/Coppr/Lutein/Zeaxan 1 cap PO BID 08/01/20 12/23/20 [Preservision Areds 2 Softgel] Multivit-Min/FA/Lycopen/Lutein 1 tab PO DAILY 09/07/20 12/23/20 [Centrum Silver Tablet] Previous Rx's Medication Instructions Recorded Aspirin 81 mg PO DAILY chew 09/13/20 Atorvastatin [Lipitor] 40 mg PO HS #90 tab 09/13/20 Clopidogrel [Plavix] 75 mg PO DAILY #90 tab 09/13/20 Metoprolol Tartrate [Lopressor] 25 mg PO BID #180 tab 09/13/20 hydroCHLOROthiazide [Hydrodiuril] 25 mg PO DAILY #90 tab 09/13/20 lisinopriL [Zestril] 20 mg PO BID #90 tab 09/13/20 Allergies Allergy/AdvReac Type Severity Reaction Status Date / Time No Known Allergies Allergy Verified 12/23/20 12:35 Review of Systems ROS Statement: Those systems with pertinent positive or pertinent negative responses have been documented in the HPI. ROS Other: All systems not noted in ROS Statement are negative. Past Medical History Past Medical History: Cancer, Eye Disorder, Musculoskeletal Disorder Additional Past Medical History / Comment(s): Glaucoma, breast cancer 1994-had surg. & chemo History of Any Multi-Drug Resistant Organisms: None Reported Past Surgical History: Breast Surgery, Hysterectomy Additional Past Surgical History / Comment(s): right mastectomy Past Anesthesia/Blood Transfusion Reactions: No Reported Reaction Past Psychological History: No Psychological Hx Reported Smoking Status: Never smoker Past Alcohol Use History: None Reported Past Drug Use History: None Reported General Exam - General Exam Comments Initial Comments: GENERAL: Patient is well-developed and well-nourished. Patient is nontoxic and well- hydrated and is in mild distress. ENT: Neck is soft and supple. No significant lymphadenopathy is noted. Oropharynx is clear. Moist mucous membranes. Neck has full range of motion without eliciting any pain. EYES: The sclera were anicteric and conjunctiva were pink and moist. Extraocular movements were intact and pupils were equal round and reactive to light. Eyelids were unremarkable. PULMONARY: Unlabored respirations. Good breath sounds bilaterally. No audible rales rhonchi or wheezing was noted. CARDIOVASCULAR: Patient is bradycardic at about 40 beats a minute ABDOMEN: Soft and nontender with normal bowel sounds. No palpable organomegaly was noted. There is no palpable pulsatile mass. SKIN: Skin is clear with no lesions or rashes and otherwise unremarkable. NEUROLOGIC: Patient is alert and oriented x3. Cranial nerves II through XII are grossly intact. Motor and sensory are also intact. Normal speech, volume and content. Symmetrical smile. MUSCULOSKELETAL: Normal extremities with adequate strength and full range of motion. LYMPHATICS: No significant lymphadenopathy is noted PSYCHIATRIC: Normal psychiatric evaluation. Limitations: no limitations Course Vital Signs 12/23/20 12/23/20 12/23/20 09:38 09:56 11:14 Temperature 97.3 F L Pulse Rate 42 L 40 L 41 L Respiratory 18 20 20 Rate Blood Pressure 86/47 98/62 122/69 O2 Sat by Pulse 99 97 Oximetry Medical Decision Making - Medical Decision Making EKG shows a left bundle branch block at a rate of only 41 bpm QRS is 148 QT interval is 5:30 QTC is 443. - Lab Data Result diagrams: 12/23/20 10:01 12/23/20 10:01 Lab Results 12/23/20 12/23/20 12/23/20 Range/Units 10:01 10:01 10:01 WBC 12.4 H (3.8-10.6) k/uL RBC 5.04 (3.80-5.40) m/uL Hgb 13.9 (11.4-16.0) gm/dL Hct 42.9 (34.0-46.0) % MCV 85.2 (80.0-100.0) fL MCH 27.5 (25.0-35.0) pg MCHC 32.3 (31.0-37.0) g/dL RDW 14.1 (11.5-15.5) % Plt Count 379 (150-450) k/uL MPV 8.3 Neutrophils % 78 % Lymphocytes % 14 % Monocytes % 6 % Eosinophils % 1 % Basophils % 1 % Neutrophils # 9.7 H (1.3-7.7) k/uL Lymphocytes # 1.7 (1.0-4.8) k/uL Monocytes # 0.7 (0-1.0) k/uL Eosinophils # 0.1 (0-0.7) k/uL Basophils # 0.1 (0-0.2) k/uL PT 10.3 (9.0-12.0) sec INR 1.0 (<1.2) APTT 22.2 (22.0-30.0) sec Sodium 141 (137-145) mmol/L Potassium 4.7 (3.5-5.1) mmol/L Chloride 107 (98-107) mmol/L Carbon Dioxide 25 (22-30) mmol/L Anion Gap 9 mmol/L BUN 42 H (7-17) mg/dL Creatinine 1.32 H (0.52-1.04) mg/dL Est GFR (CKD-EPI)AfAm 43 (>60 ml/min/1.73 sqM) Est GFR (CKD-EPI)NonAf 37 (>60 ml/min/1.73 sqM) Glucose 93 (74-99) mg/dL Calcium 9.5 (8.4-10.2) mg/dL Magnesium 2.3 (1.6-2.3) mg/dL Total Bilirubin 1.2 (0.2-1.3) mg/dL AST 37 H (14-36) U/L ALT 22 (4-34) U/L Alkaline Phosphatase 93 (38-126) U/L Troponin I (0.000-0.034) ng/mL NT-Pro-B Natriuret Pep pg/mL Total Protein 6.8 (6.3-8.2) g/dL Albumin 4.0 (3.5-5.0) g/dL Amylase 79 (30-110) U/L Lipase 162 (23-300) U/L Influenza Type A (PCR) (Not Detectd) Influenza Type B (PCR) (Not Detectd) RSV (PCR) (Not Detectd) SARS-CoV-2 (PCR) (Not Detectd) 12/23/20 12/23/20 12/23/20 Range/Units 10:01 10:01 10:03 WBC (3.8-10.6) k/uL RBC (3.80-5.40) m/uL Hgb (11.4-16.0) gm/dL Hct (34.0-46.0) % MCV (80.0-100.0) fL MCH (25.0-35.0) pg MCHC (31.0-37.0) g/dL RDW (11.5-15.5) % Plt Count (150-450) k/uL MPV Neutrophils % % Lymphocytes % % Monocytes % % Eosinophils % % Basophils % % Neutrophils # (1.3-7.7) k/uL Lymphocytes # (1.0-4.8) k/uL Monocytes # (0-1.0) k/uL Eosinophils # (0-0.7) k/uL Basophils # (0-0.2) k/uL PT (9.0-12.0) sec INR (<1.2) APTT (22.0-30.0) sec Sodium (137-145) mmol/L Potassium (3.5-5.1) mmol/L Chloride (98-107) mmol/L Carbon Dioxide (22-30) mmol/L Anion Gap mmol/L BUN (7-17) mg/dL Creatinine (0.52-1.04) mg/dL Est GFR (CKD-EPI)AfAm (>60 ml/min/1.73 sqM) Est GFR (CKD-EPI)NonAf (>60 ml/min/1.73 sqM) Glucose (74-99) mg/dL Calcium (8.4-10.2) mg/dL Magnesium (1.6-2.3) mg/dL Total Bilirubin (0.2-1.3) mg/dL AST (14-36) U/L ALT (4-34) U/L Alkaline Phosphatase (38-126) U/L Troponin I <0.012 (0.000-0.034) ng/mL NT-Pro-B Natriuret Pep 911 pg/mL Total Protein (6.3-8.2) g/dL Albumin (3.5-5.0) g/dL Amylase (30-110) U/L Lipase (23-300) U/L Influenza Type A (PCR) Not Detected (Not Detectd) Influenza Type B (PCR) Not Detected (Not Detectd) RSV (PCR) Not Detected (Not Detectd) SARS-CoV-2 (PCR) Not Detected (Not Detectd) Disposition Clinical Impression: Bradycardia, Acute diarrhea, Acute vomiting Disposition: ADMITTED IP TO THIS HOSP Referrals: None,Stated [REFERRING] - 1-2 days Time of Disposition: 13:15
[2020-12-23] MEDS ORDERED: SODIUM CHLORIDE 0.9% 500 ML 500 ML IV ONE (10:02)
[2020-12-23 10:25] LABS: Basophils # (A) 0.1 k/uL (0-0.2); Basophils % (A) 1 %; Calcium 9.5 mg/dL (8.4-10.2); Eosinophils # (A) 0.1 k/uL (0-0.7); Eosinophils % (A) 1 %; HCT 42.9 % (34.0-46.0); HGB 13.9 gm/dL (11.4-16.0); Lymphocytes # (A) 1.7 k/uL (1.0-4.8); Lymphocytes % (A) 14 %; MCH 27.5 pg (25.0-35.0); MCHC 32.3 g/dL (31.0-37.0); MCV 85.2 fL (80.0-100.0); Magnesium 2.3 mg/dL (1.6-2.3); Mean Platelet Volume 8.3; Monocytes # (A) 0.7 k/uL (0-1.0); Monocytes % (A) 6 %; Neutrophils # (A) 9.7 k/uL (1.3-7.7); Neutrophils % (A) 78 %; Platelet Count 379 k/uL (150-450); Potassium 4.7 mmol/L (3.5-5.1); RBC 5.04 m/uL (3.80-5.40); RDW 14.1 % (11.5-15.5); Total Bilirubin 1.2 mg/dL (0.2-1.3); Total Protein 6.8 g/dL (6.3-8.2); WBC 12.4 k/uL (3.8-10.6)
--- NOTE | 2020-12-23 10:28 | XR ---
EXAMINATION TYPE: XR chest 2V DATE OF EXAM: 12/23/2020 COMPARISON: Chest x-ray February 11, 2019 HISTORY: Chest pain and vomiting. TECHNIQUE: Frontal and lateral views of the chest are obtained. FINDINGS: There is mild chronic parenchymal changes without suspicious focal air space opacity, pleu ral effusion, or pneumothorax seen. The cardiac silhouette size is upper limits of normal. Overlying EKG leads are in current study. The osseous structures are intact. IMPRESSION: Mild chronic changes without acute pulmonary process.
[2020-12-23 10:33] LABS: Partial Thromboplastin Time 22.2 sec (22.0-30.0); Prothrombin Time 10.3 sec (9.0-12.0)
[2020-12-23] MEDS ORDERED: NITROGLYCERIN SL TABS 0.4 MG TAB SUBLINGUAL PRN (13:16)
[2020-12-23] MEDS: CLOPIDOGREL 75 MG TAB PO SCH (16:47)
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
--- NOTE | 2020-12-23 17:27 | P.PN ---
Progress Note - Text Progress Note Date: 12/23/20 Orthostatic blood pressure was recorded Blood pressure in supine position 141/56 with a heart rate 54 beats per minute in the sitting position blood pressure 161/51 with a heart rate 53 couldn't, on the standing 167/69 with a heart rate 56.
[2020-12-23] MEDS: SODIUM CHLORIDE 0.9% 500 ML 500 ML IV SCH (18:39)
[2020-12-23] MEDS: VIT A,C & E-LUTEIN-MINERALS 1 EACH TAB PO SCH (20:08)
[2020-12-23] MEDS: ATORVASTATIN 40 MG TAB PO SCH (20:08)
[2020-12-23] MEDS ORDERED: amLODIPine 5 MG TAB PO SCH (21:00)
[2020-12-24 00:26] LABS: Amorphous Sediment,Urine Rare /hpf; Appearance,Urine Clear (Clear); Bilirubin,Urine Negative (Negative); Blood,Urine Negative (Negative); Color,Urine Light Yellow; Glucose,Urine (UA) Negative (Negative); Hyaline Casts,Urine 1 /lpf (0-2); Ketones,Urine Negative (Negative); Leukocyte Esterase,Urine Small (Negative); Mucus,Urine Rare /hpf; Nitrite,Urine Negative (Negative); PH, Urine 5.5 (5.0-8.0); Protein,Urine Negative (Negative); RBC,Urine <1 /hpf (0-5); Specific Gravity,Urine 1.013 (1.001-1.035); Squamous Epithelial Cell,Urine 2 /hpf (0-4); Urobilinogen,Urine <2.0 mg/dL (<2.0); WBC,Urine 5 /hpf (0-5)
--- NOTE | 2020-12-24 07:41 | CONS ---
CONSULTATION HISTORY OF PRESENT ILLNESS: Mrs Stephanie Luciano is a lady with a known history of CAD who presented with a fracture of left wrist in August of this year, underwent surgery. Following that, had chest discomfort and cardiac cath revealed a significant disease involving the proximal RCA and LAD and underwent stenting by Dr. Oscar with excellent angiographic result. She was placed on a beta gisele and dual antiplatelet therapy. She came into the hospital with complaints of fatigue and lack of energy and nausea and vomiting. She was also found to be bradycardic after arrival and I was asked to see her in this regard. At the time of my evaluation, she is actually comfortable. Denies any chest discomfort and indicates to me that the nausea, vomiting, and diarrhea has improved and she feels that she has an appetite and wishes to eat. She has no chest discomfort or shortness of breath or palpitations. She is resting comfortably and the heart rate is about 58 beats per minute sinus with a left bundle. PAST MEDICAL HISTORY: 1. History of CAD with 2 vessel PCI of LAD and RCA performed by Dr. Oscar in August of this year. 2. Hypertension. 3. Hyperlipidemia. 4. History of previous breast surgery and hysterectomy and right mastectomy. ALLERGIES: None. MEDICATIONS: Include Zestril 20 mg b.i.d., Plavix 75 mg daily, Lipitor 40 mg daily, aspirin 81 mg daily, metoprolol tartrate 25 mg b.i.d., hydrochlorothiazide 25 mg daily. PHYSICAL EXAMINATION: On examination, blood pressure is 140/70, pulse rate is about 56 per minute at the time of my evaluation. HEENT: Unremarkable. Fundus was not examined by me. NECK is supple. There is no JVD. I do not hear a carotid bruit. HEART exam reveals S1 and S2 with a short systolic murmur. LUNGS revealed bilateral decent air entry. ABDOMEN is soft, nontender. Lower EXTREMITIES reveal diminished pulses. CENTRAL NERVOUS SYSTEM grossly within normal limits. EKG revealed sinus bradycardia with a left bundle branch block and left axis. IMPRESSION: 1. Coronary artery disease, stable status post 2 vessel PCI in August. 2. Sick sinus syndrome with asymptomatic bradycardia in a patient on Lopressor 25 mg b.i.d. with underlying IVCD. 3. Hypertension. 4. Status post PCI of the LAD and proximal RCA and proximal LAD in August of this year. RECOMMENDATIONS: I am recommending that we will check a thyroid function level. Discontinue and not give her beta blockers even upon discharge and check a TSH level. We will increase activity and she can resume her cardiac diet. Thank you very much for the consult. RONY / SANTA: [id number] /
[2020-12-24 08:12] LABS: Basophils # (A) 0.1 k/uL (0-0.2); Basophils % (A) 1 %; Eosinophils # (A) 0.2 k/uL (0-0.7); Eosinophils % (A) 3 %; HCT 40.3 % (34.0-46.0); HGB 12.9 gm/dL (11.4-16.0); Lymphocytes # (A) 1.6 k/uL (1.0-4.8); Lymphocytes % (A) 27 %; MCH 27.6 pg (25.0-35.0); MCHC 32.1 g/dL (31.0-37.0); Mean Platelet Volume 8.1; Monocytes # (A) 0.5 k/uL (0-1.0); Monocytes % (A) 9 %; Neutrophils # (A) 3.2 k/uL (1.3-7.7); Neutrophils % (A) 57 %; Platelet Count 240 k/uL (150-450); RBC 4.68 m/uL (3.80-5.40); RDW 13.9 % (11.5-15.5); WBC 5.6 k/uL (3.8-10.6)
[2020-12-24] MEDS: VIT A,C & E-LUTEIN-MINERALS 1 EACH TAB PO SCH ×2 (08:13→20:14)
[2020-12-24] MEDS: CLOPIDOGREL 75 MG TAB PO SCH (08:13)
[2020-12-24] MEDS: ASPIRIN 81 MG PO SCH (08:13)
[2020-12-24] MEDS: MULTIVITAMINS, THERA 1 EACH TAB PO SCH (08:13)
[2020-12-24 08:29] LABS: African American GFR (CKD) 74 (>60 ml/min/1.73 sqM); Anion Gap 4 mmol/L; Blood Urea Nitrogen 33 mg/dL (7-17); Calcium 9.2 mg/dL (8.4-10.2); Carbon Dioxide 26 mmol/L (22-30); Chloride 110 mmol/L (98-107); Cholesterol 112 mg/dL (<200); Glucose 97 mg/dL (74-99); HDL Cholesterol 40 mg/dL (40-60); LDL Cholesterol,Calculated 57 mg/dL (0-99); Non-African American GFR(CKD) 64 (>60 ml/min/1.73 sqM); Potassium 4.4 mmol/L (3.5-5.1); Sodium 140 mmol/L (137-145); Triglycerides 74 mg/dL (<150)
[2020-12-24] MEDS ORDERED: lisinopriL 5 MG TAB PO SCH (09:00)
[2020-12-24] MEDS ORDERED: ASPIRIN 325 MG TAB PO SCH (09:00)
[2020-12-24] MEDS ORDERED: hydroCHLOROthiazide 25 MG TAB PO SCH (09:00)
[2020-12-24 09:33] LABS: T4, Free (Free Thyroxine) 1.28 ng/dL (0.78-2.19)
--- NOTE | 2020-12-24 14:00 | ECHOF ---
Referral Reason:bradycardia,hypertensive heart disease MEASUREMENTS -------- HEIGHT: 157.5 cm WEIGHT: 56.7 kg BP: IVSd: 1.3 cm (0.6 - 1.1) LVIDd: 4.7 cm (3.9 - 5.3) LVPWd: 1.2 cm (0.6 - 1.1) IVSs: 1.6 cm LVIDs: 3.2 cm LVPWs: 1.2 cm LA Diam: 3.9 cm (2.7 - 3.8) LAESV Index (A-L): 47.28 ml/m Ao Diam: 2.1 cm (2.0 - 3.7) AV Cusp: 1.5 cm (1.5 - 2.6) LA Diam: 4.4 cm (2.7 - 3.8) MV EXCURSION: 13.261 mm (> 18.000) MV EF SLOPE: 18 mm/s (70 - 150) EPSS: 0.3 cm MV E Michael: 0.70 m/s MV A Michael: 0.64 m/s MV E/A Ratio: 1.09 RAP: 5.00 mmHg RVSP: 42.53 mmHg FINDINGS -------- Sinus rhythm. This was a technically good study. LV size, wall thickness and systolic function are normal, with an EF greater than 55%. The left florence tricular size is normal. The right ventricle is normal in size. LA is severely dilated >40 ml/m2 The right atrial size is normal. The aortic valve is trileaflet, and appears structurally normal. No aortic stenosis or regurgitation. Mild mitral regurgitation is present. Mild tricuspid regurgitation present. There is mild pulmonary hypertension. The right ventricular systolic pressure, as measured by Doppler, is 42.53mmHg. Trace/mild (physiologic) pulmonic regurgitation. The aortic root size is normal. There is no pericardial effusion. CONCLUSIONS -------- 1. This was a technically good study. 2. LV size, wall thickness and systolic function are normal, with an EF greater than 55%. 3. The left ventricular size is normal. 4. The right ventricle is normal in size. 5. LA is severely dilated >40 ml/m2 6. The right atrial size is normal. 7. Mild mitral regurgitation is present. 8. Mild tricuspid regurgitation present. 9. There is mild pulmonary hypertension. 10. The right ventricular systolic pressure, as measured by Doppler, is 42.53mmHg. 11. Trace/mild (physiologic) pulmonic regurgitation. 12. The aortic root size is normal. 13. There is no pericardial effusion. MEDIA MANAGER: Viola Dasilva RDCS
[2020-12-24] MEDS ORDERED: ENALAPRILAT 1.25 MG/ML 1 ML VIAL IVP PRN (14:02)
--- NOTE | 2020-12-24 14:15 | P.PN ---
Subjective Progress Note Date: 12/24/20 (Bradycardia, dehydration) Principal diagnosis: Bradycardia, possible sick sinus syndrome. Hypotension, blood pressure 95/54 with a mean 67 and prior to that 97/57 with a mean 70 and the pulse ox 96% on room air. Dehydration Chronic kidney disease stage II with the improvement of the creatinine and BUN with very gentle hydration. Progress note date of service Dictation by Dr. Fong. Patient seen today and examined [id number] Discussed with the patient and her son. Vital sign indicating today blood pressure 97/57 with a mean 70 repeat 95/54 with a mean 67 and oxygen saturation 96%. Patient is conscious alert oriented 3. Ambulatory and she went to the bathroom and return to the back her blood pressure picked up to 173 systolic with exertion. Head was normocephalic and atraumatic, normal hearing, normal oropharynx with natural teeth. Neck was supple no JVD no thyromegaly no lymphadenopathy. Chest is clear to auscultation percussion. Heart: Regular sinus rhythm echocardiogram results is not available done yesterday on the 12/23/20. Abdomen soft positive bowel sounds no tenderness No diarrhea since has been in the hospital and order for the stool testing has been on the chart until she had loose bowel. Extremities no edema positive pulses. Neurologically stable ambulatory moving 4 extremities able to walk no neurological finding. Patient seen by Dr. ABE Rosado cardiology with a history of stent. Assessment and plan with the underlying hypotension and the systolic 95/54 will continue the IV fluids gently and probably will increase it from 20 mL to 50 mL and begun also decrease the antihypertensive medication to lisinopril 2.5 and he was Vasotec IV if episodic increase of blood pressure Especially with exertion As well we'll decrease the amlodipine to 2.5 mg daily at bedtime. Check her renal function in a.m. Waiting for the echocardiogram. Objective - Vital Signs Vital signs: Vital Signs Temp 98.2 F 12/24/20 12:24 Pulse 44 L 12/24/20 14:00 Resp 16 12/24/20 14:00 BP 95/54 12/24/20 12:24 Pulse Ox 96 12/24/20 12:24 Intake & Output 12/23/20 12/24/20 12/24/20 18:59 06:59 18:59 Intake Total 360 720 Output Total 450 Balance 360 -450 720 Weight 56.699 kg 55.2 kg Intake: Oral 360 720 Output: Urine 450 Other: Voiding Method Toilet Toilet Toilet # Voids 0 1 1 # Bowel Movements 0 - Labs CBC & Chem 7: 12/24/20 07:31 12/24/20 07:31 Labs: Abnormal Lab Results - Last 24 Hours (Table) 12/23/20 12/24/20 Range/Units 22:36 07:31 Chloride 110 H (98-107) mmol/L BUN 33 H (7-17) mg/dL TSH <0.015 L (0.465-4.680) mIU/L Ur Leukocyte Esterase Small H (Negative) Amorphous Sediment Rare H (None) /hpf Urine Mucus Rare H (None) /hpf
[2020-12-24 14:45] VITALS: BMI 22.2
[2020-12-24] MEDS: SODIUM CHLORIDE 0.9% 500 ML 500 ML IV SCH (17:54)
[2020-12-24] MEDS: ATORVASTATIN 40 MG TAB PO SCH (20:14)
[2020-12-25] MEDS: SODIUM CHLORIDE 0.9% 500 ML 500 ML IV SCH ×2 (07:28→17:53)
[2020-12-25 07:51] LABS: Basophils % (A) 1 %; Eosinophils # (A) 0.3 k/uL (0-0.7); Eosinophils % (A) 4 %; HCT 41.3 % (34.0-46.0); HGB 13.2 gm/dL (11.4-16.0); Lymphocytes # (A) 1.4 k/uL (1.0-4.8); Lymphocytes % (A) 24 %; MCH 27.7 pg (25.0-35.0); MCV 86.5 fL (80.0-100.0); Mean Platelet Volume 8.3; Monocytes # (A) 0.5 k/uL (0-1.0); Monocytes % (A) 9 %; Neutrophils # (A) 3.5 k/uL (1.3-7.7); Neutrophils % (A) 60 %; Platelet Count 251 k/uL (150-450); RBC 4.77 m/uL (3.80-5.40); RDW 13.9 % (11.5-15.5); WBC 5.9 k/uL (3.8-10.6)
[2020-12-25 07:58] LABS: Calcium 8.7 mg/dL (8.4-10.2); Potassium 4.5 mmol/L (3.5-5.1)
[2020-12-25] MEDS: MULTIVITAMINS, THERA 1 EACH TAB PO SCH (08:24)
[2020-12-25] MEDS: VIT A,C & E-LUTEIN-MINERALS 1 EACH TAB PO SCH ×2 (08:24→22:29)
[2020-12-25] MEDS: amLODIPine 2.5 MG TAB PO SCH (08:24)
[2020-12-25] MEDS: ASPIRIN 81 MG PO SCH (08:25)
[2020-12-25] MEDS: CLOPIDOGREL 75 MG TAB PO SCH (08:25)
[2020-12-25] MEDS: METOPROLOL TARTRATE 12.5 MG TAB PO SCH (09:01)
--- NOTE | 2020-12-25 12:59 | PN ---
PROGRESS NOTE Mrs. Luciano is a lady with CAD, came in with nausea, vomiting, had bradycardia. We stopped the beta gisele. Heart rate this morning was 78 beats per minute. I am recommending that we resume metoprolol tartrate 12.5 mg in the morning only if the heart rate is more than 60. Vitals are stable. Doing well. S1-S2 heard normally. Short systolic murmur noted. Lungs reveal improved air entry. No chest pain or shortness of breath. The patient feels well. MMODL / IJN: [id number] /
--- NOTE | 2020-12-25 13:16 | P.PN ---
Subjective Progress Note Date: 12/25/20 (Hypertension with with minimal exertion. More than 170 systolic to 180 systolic.) Progress note date of service 12/25/[address] Ansari. Patient seen and evaluated today discussed with the patient, and her son at bedside. On the exam RN nurse checked her blood pressure during my exam her blood pressure was ranging between 138-148 systolic and diastolic range between 74 and 75. During the exam blood pressure was 187/81 with the mean 116 Apparently with minimal exertion she elevated her blood pressure. And was not symptomatic. On evaluation also of her medication, yesterday on 12/24/2020 Dr. ABE Rosado did add Lopressor 12.5 mg which was not given today because her heart rate was down to 55 bpm. Her sodium 141 and the potassium 4.5 no evidence of hypokalemia, with the IV chloride was elevated 110, her BUN is 24 which is improving from admission as well as her creatinine down to 0.78. Also found that she had very low TSH which suggestive of hyper thyroidism. We don't have any previous data for that. Her renal function he currently for non- 71., No diabetes mellitus blood sugar is controlled 86 Urine analysis small leukocyte. Amorphus sediment. Urine his appearance is clear pH 5.5. On examination: Patient's conscious alert oriented 3 She went to the bathroom and prostate her teeth 1 hour ago and the blood pressure now went up from normotensive to hypertensive with exertion. Her heart rate is fluctuating at this time from 52-55 and the last reading 72 with the underlying suspicious of sick sinus syndrome. The head was normocephalic and atraumatic, pupil was equal reactive, conjunctivae was pink sclera was nonicteric, Neck was supple no JVD no thyromegaly no lymphadenopathy trachea midline. Chest was clear to auscultation percussion. Heart was regular sinus rhythm with bradycardia improved without the beta blockers. Abdomen no tenderness and the diarrhea has been stopped so far noticed chemistry obtained without had a bowel movement. Extremities no edema positive pulses. Neurologically stable. Assessment and plan: #1 with the diarrhea nausea and vomiting and the hypertension, on admission #2 accelerated hypertension with minimal exertion. #3 no hypokalemia. #4 low TSH was suspicious of hyper thyroidism. #5 sick sinus syndrome per cardiology #6 acute kidney injury/chronic kidney disease stage III/dehydration/prerenal recovered with currently chronic kidney disease stage II. #7 suspicious of renal abnormalities with renal hypertension and minimal exertion accelerated hypertension #8. Renal artery stenosis in the differential diagnosis. Plan: We'll obtain renal artery study and ultrasound of the kidneys as well as renal panel profile. Repeat TSH and a free T3 and T4 for the hyperthyroidism. In a.m. Recheck her blood pressure after ambulation with the accelerated hypertension with activities. No evidence of anemia. Objective - Vital Signs Vital signs: Vital Signs Temp 97.8 F 12/25/20 12:16 Pulse 72 12/25/20 12:16 Resp 18 12/25/20 12:16 BP 187/81 12/25/20 12:16 Pulse Ox 98 12/25/20 12:16 Intake & Output 12/24/20 12/25/20 12/25/20 18:59 06:59 18:59 Intake Total 960 200 Balance 960 200 Weight 55.2 kg 54.8 kg Intake: Oral 960 200 Other: Voiding Method Toilet Toilet Toilet # Voids 1 1 - Labs CBC & Chem 7: 12/25/20 06:43 12/25/20 06:43 Labs: Abnormal Lab Results - Last 24 Hours (Table) 12/25/20 Range/Units 06:43 Chloride 110 H (98-107) mmol/L BUN 24 H (7-17) mg/dL
[2020-12-25] MEDS: ATORVASTATIN 40 MG TAB PO SCH (22:28)
--- NOTE | 2020-12-26 07:56 | US ---
EXAMINATION TYPE: US renal artery duplex complet DATE OF EXAM: 12/26/2020 COMPARISON: NONE CLINICAL HISTORY: Hypertension with renal artery stenosis. Uncontrolled HTN MEASUREMENTS: RENAL SIZE: Rt Kidney: 9.3 x 3.7 x 4.4 cm Lt Kidney: 9.8 x 4.4 x 4.0 cm RESISTANCE INDEX Right: 0.7 Left: 0.7 RA/AO RATIO (< 3.5 ) Right: 3.5 Left: 4.2 RA VELOCITY ( < 180 cm/s) Right: 246.4 Left: 298.1 Possible small renal cysts left kidney Elevated velocities bilateral proximal renal arteries Incidental finding gallstones IMPRESSION: 1. Elevated bilateral renal artery proximal velocities. Elevated ratio bilaterally suggestive of emigdio l artery stenosis greater on the left. Recommend follow-up MRA or CTA. 2. Correlate for cholelithiasis.
[2020-12-26] MEDS: ASPIRIN 81 MG PO SCH (09:37)
[2020-12-26] MEDS: amLODIPine 2.5 MG TAB PO SCH ×2 (09:37→21:33)
[2020-12-26] MEDS: MULTIVITAMINS, THERA 1 EACH TAB PO SCH (09:37)
[2020-12-26] MEDS: VIT A,C & E-LUTEIN-MINERALS 1 EACH TAB PO SCH ×2 (09:37→21:33)
[2020-12-26] MEDS: CLOPIDOGREL 75 MG TAB PO SCH (09:37)
[2020-12-26] MEDS: SODIUM CHLORIDE 0.9% 500 ML 500 ML IV SCH (09:40)
[2020-12-26] MEDS: METOPROLOL TARTRATE 12.5 MG TAB PO SCH (09:40)
[2020-12-26] MEDS ORDERED: lisinopriL 5 MG TAB PO STA (09:42)
--- NOTE | 2020-12-26 09:45 | P.PN ---
Subjective This is a pleasant 85 year old female past medical history significant for coronary artery disease s/p PCI LAD and RCA 08/2020, hypertension and dysl ipidemia. She follows in the office with Dr. Oscar. She was evaluated by Dr. Rosado on admission secondary to fatigue with bradycardia. Echocardiogram obtained on this admission revealed preserved LV systolic function with EF greater than 55%, mild MR, mild TR and mild pulmonary hypertension with RVSP [address] Rosado decreased her dose beta blockers. She is currently maintaining heart rates in the 50s. Blood pressure 159/84. She is also on amlodipine 2.5 ,g chuyita;u. aspirin 81 mg daily, atorvastatin 40 mg daily, plavix 75 mg daily and lisinopril 2.5 mg daily. She was found to have a suppressed TSH of less than 0.15. Renal artery duplex performed this morning revealed elevated bilateral renal artery proximal velocities suggestive of renal artery stenosis greater than left. Incidental finding of cholelithiasis. GENERAL: Well-appearing, well-nourished and in no acute distress. NECK: Supple without JVD or thyromegaly. LUNGS: Breath sounds clear to auscultation bilaterally. Respiration equal and unlabored. No wheezes, rales or rhonchi. HEART: Regular rate and rhythm with systolic ejection murmur at the base, no rubs or gallops. S1 and S2 heard. EXTREMITIES: Normal range of motion, no edema. No clubbing or cyanosis. Peripheral pulses intact. ASSESSMENT Sick sinus syndrome with underling IVCD Nausea, vomiting and diarrhea Coronary artery disease s/p PCI 08/2020 Hypertension Dyslipidemia PLAN Discontinue beta blockers at this time due to bradycardia. Heart rates are sitting in the low-mid 50 range and she has not been getting beta blockers since admission. Check manual blood pressure. Increase lisinopril to 10 mg daily. Nurse Practitioner note has been reviewed, I agree with a documented findings and plan of care. Patient was seen and examined. Objective - Vital Signs Vital signs: Vital Signs Temp 97.9 F 12/26/20 04:00 Pulse 57 L 12/26/20 04:00 Resp 16 12/26/20 04:00 BP 159/84 12/26/20 04:00 Pulse Ox 98 12/26/20 04:00 Intake & Output 12/25/20 12/26/20 12/26/20 18:59 06:59 18:59 Intake Total 700 Balance 700 Weight 55.7 kg Intake: Oral 700 Other: Voiding Method Toilet Toilet # Voids 2 1 - Labs CBC & Chem 7: 12/25/20 06:43 12/25/20 06:43
[2020-12-26 10:04] LABS: African American GFR (CKD) >90 (>60 ml/min/1.73 sqM); Albumin 3.5 g/dL (3.5-5.0); Anion Gap 6 mmol/L; Blood Urea Nitrogen 17 mg/dL (7-17); Calcium 9.3 mg/dL (8.4-10.2); Carbon Dioxide 23 mmol/L (22-30); Chloride 111 mmol/L (98-107); Glucose 135 mg/dL (74-99); Non-African American GFR(CKD) 78 (>60 ml/min/1.73 sqM); Phosphorus 2.8 mg/dL (2.5-4.5); Potassium 4.3 mmol/L (3.5-5.1); Sodium 140 mmol/L (137-145)
[2020-12-26 11:18] LABS: T4, Free (Free Thyroxine) 1.41 ng/dL (0.78-2.19)
--- NOTE | 2020-12-26 12:45 | P.PN ---
Subjective Progress Note Date: 12/26/20 (Bilateral renal artery stenosis, accelerated blood pressure elevation after minimal exertion, hyperthyroidism.) Progress note date of service 12/26/2020. Dictation by Dr. Fong. Patient seen and evaluated and discussed with the patient and her son and the nurse RN attending the patient. Patient seen by cardiology Dr. Perera and ALY gracia, I did speak to Basia and discussed the main concern and the question was with minimal exertion her blood pressure becomes accelerated in the 180 and 170. Systolic. Patient history of bradycardia and the any use of beta gisele causing bradycardia his increased and become symptomatic, Dr. Campbell discontinue the beta gisele and placed her on BAHMAN inhibitor however patient has been in the past on high doses of BAHMAN inhibitor. And still have the symptoms of accelerated blood pressure with minimal exertion since August 2020 after her stenting. She will discuss it with Dr. Perera cardiology attending. Meanwhile we did discuss that the patient has bilateral renal artery stenosis, and I did inform her that we are going to consult with the nephrology to see his pain and which for further management need. On the laboratory was found that still patient had low TSH and low free T4 which indicating hyper thyroidism and farther treatment will be done as outpatient with very failure 2 the computer tape librarian after repeating the test again. I did request consultation with nephrology urgent to have his appointment opinion as the patient is going to work we'll have similar episode with exertion hypertensive acceleration. Today [id number] exam: Her temperature 97.8 oral F her heart rate is 60 bpm with the discontinuation of the beta gisele, respiratory rate 16/m, her blood pressure 169/75 with the mean blood pressure 106 Her HEENT head was normocephalic and atraumatic. Neck was supple no JVD no thyromegaly no lymphadenopathy. Chest is clear to auscultation and percussion. Heart regular sinus rhythm. With good ejection fraction. Abdomen is soft positive bowel sounds no organ enlargement. Extremities degenerative arthritis mild positive pulses no edema. Discussed with the nephrology Dr. Norwood. Assessment #1 bilateral renal artery stenosis #2 accelerated hypertension after ambulation. #3 hypertension uncontrolled) and. #4 hyper thyroidism. #5 tachycardia improved #6 rule out sick sinus syndrome. Plan: Dr. Dumont will adjust the medication today and will monitor her blood pressure with exertion With the possible discharge tomorrow if okay with nephrology and cardiology. Objective - Vital Signs Vital signs: Vital Signs Temp 97.8 F 12/26/20 11:15 Pulse 60 12/26/20 11:15 Resp 16 12/26/20 11:15 BP 169/75 12/26/20 11:15 Pulse Ox 98 12/26/20 11:15 Intake & Output 12/25/20 12/26/20 12/26/20 18:59 06:59 18:59 Intake Total 700 240 Balance 700 240 Weight 55.7 kg Intake: Oral 700 240 Other: Voiding Method Toilet Toilet Toilet # Voids 2 1 2 - Labs CBC & Chem 7: 12/25/20 06:43 12/26/20 08:33 Labs: Abnormal Lab Results - Last 24 Hours (Table) 12/26/20 Range/Units 08:33 Chloride 111 H (98-107) mmol/L Glucose 135 H (74-99) mg/dL TSH 0.021 L (0.465-4.680) mIU/L
--- NOTE | 2020-12-26 13:01 | P.NPCON ---
History of Present Illness - Reason for Consult accelerated hypertension - History of Present Illness Reason for consultation: Renal artery stenosis History of present illness: A patient is a 85-year-old female seen in renal consultation for renal artery stenosis. Patient initially presented to the hospital on 12/23/2020 with nausea vomiting and diarrhea which has been intermittently going on for the last couple of months. Patient has coronary artery disease and cardiac stents placed in August 2020. Patient's blood pressures have been quite labile. On admission the overload in the systolic 80s to 90s. And they've been as high as 206/96 this admission. Patient was also noted to be bradycardic and beta gisele was discontinued. Patient had a renal artery duplex ultrasound this admission which was suggestive of bilateral renal artery stenosis. Kidneys were noted to be fairly normal in size. No evidence of renal failure. No evidence of fluid overload. No edema. No chest pain. No evidence of orthostatic hypotension. In fact her blood pressure is higher when standing. According to her son her heart rate was as low as in the 30s but is now stable in the 50s to 60s. She denies use of nonsteroidals. No hematuria or dysuria. No abdominal pain. Oral intake is fair. Vital signs are stable. General: The patient appeared well nourished and normally developed. HEENT: Head exam is unremarkable. Neck is without jugular venous distension. LUNGS: Breath sounds decreased. HEART: Rate and Rhythm are regular. ABDOMEN: Soft, nontender. EXTREMITITES: No edema. Past Medical History Past Medical History: Cancer, Eye Disorder, Musculoskeletal Disorder Additional Past Medical History / Comment(s): Glaucoma, breast cancer 1994-had surg. & chemo History of Any Multi-Drug Resistant Organisms: None Reported Past Surgical History: Breast Surgery, Heart Catheterization With Stent, Hysterectomy Additional Past Surgical History / Comment(s): right mastectomy Past Anesthesia/Blood Transfusion Reactions: No Reported Reaction Date of Last Stent Placement:: 2020 Past Psychological History: No Psychological Hx Reported Smoking Status: Never smoker Past Alcohol Use History: None Reported Past Drug Use History: None Reported - Past Family History Father Family Medical History: Cancer Mother History Unknown: Yes Brother(s) Family Medical History: Cancer Medications and Allergies Home Medications Medication Instructions Recorded Confirmed Type Cetirizine HCl [Zyrtec] 10 mg PO DAILY 08/01/20 12/23/20 History Vit C/E/Zn/Coppr/Lutein/Zeaxan 1 cap PO BID 08/01/20 12/23/20 History [Preservision Areds 2 Softgel] Multivit-Min/FA/Lycopen/Lutein 1 tab PO DAILY 09/07/20 12/23/20 History [Centrum Silver Tablet] Aspirin 81 mg PO DAILY chew 09/13/20 12/23/20 Rx Atorvastatin [Lipitor] 40 mg PO HS #90 tab 09/13/20 12/23/20 Rx Clopidogrel [Plavix] 75 mg PO DAILY #90 tab 09/13/20 12/23/20 Rx Metoprolol Tartrate [Lopressor] 25 mg PO BID #180 tab 09/13/20 12/23/20 Rx hydroCHLOROthiazide [Hydrodiuril] 25 mg PO DAILY #90 tab 09/13/20 12/23/20 Rx lisinopriL [Zestril] 20 mg PO BID #90 tab 09/13/20 12/23/20 Rx Allergies Allergy/AdvReac Type Severity Reaction Status Date / Time No Known Allergies Allergy Verified 12/23/20 12:35 Physical Exam Vitals: Vital Signs Temp Pulse Resp BP Pulse Ox 12/26/20 11:15 97.8 F 60 16 169/75 98 12/26/20 08:20 97.4 F L 56 L 16 155/70 94 L 12/26/20 04:00 97.9 F 57 L 16 159/84 98 12/26/20 02:00 60 18 12/26/20 00:00 97.4 F L 60 18 96 12/25/20 20:00 97.4 F L 58 L 18 115/63 98 12/25/20 17:59 132/68 12/25/20 16:07 97.3 F L 53 L 16 161/60 97 12/25/20 13:23 128/66 12/25/20 13:10 206/96 12/25/20 13:00 55 L 18 Intake and Output 12/25/20 12/26/20 12/26/20 22:59 06:59 14:59 Intake Total 240 240 Balance 240 240 Intake: Oral 240 240 Other: Voiding Method Toilet Toilet Toilet # Voids 2 1 2 Weight 55.7 kg Results - Lab Results Most recent lab results Calcium 9.3 mg/dL (8.4-10.2) 12/26/20 08:33 Phosphorus 2.8 mg/dL (2.5-4.5) 12/26/20 08:33 Magnesium 2.3 mg/dL (1.6-2.3) 12/23/20 10:01 12/25/20 06:43 12/26/20 08:33 Assessment and Plan Plan: Assessment: 1. Bilateral renal artery stenosis. No evidence of renal failure. Creatinine 0.72. No evidence of fluid overload or pulmonary edema and heart failure/. UA benign. 2. Bradycardia. Beta gisele discontinued. Cardiology following. Plan: Increase amlodipine to 2.5 mg twice daily. Increase lisinopril to 10 mg twice daily. Check orthostatic vital signs every shift. Monitor vital signs closely. Goal blood pressure less than 140/90. Thank you for the consultation. I will continue to follow this patient with you during her hospital stay.
[2020-12-26] MEDS: ATORVASTATIN 40 MG TAB PO SCH (21:33)
[2020-12-26] MEDS: lisinopriL 10 MG TAB PO SCH (21:34)
[2020-12-27 06:05] VITALS: TEMP 97.7
[2020-12-27] MEDS: SODIUM CHLORIDE 0.9% 500 ML 500 ML IV SCH (08:04)
[2020-12-27 08:21] LABS: Calcium 9.5 mg/dL (8.4-10.2); Potassium 4.5 mmol/L (3.5-5.1)
[2020-12-27] MEDS: ASPIRIN 81 MG PO SCH (08:24)
[2020-12-27] MEDS: CLOPIDOGREL 75 MG TAB PO SCH (08:24)
[2020-12-27] MEDS: MULTIVITAMINS, THERA 1 EACH TAB PO SCH (08:24)
[2020-12-27] MEDS: amLODIPine 2.5 MG TAB PO SCH (08:24)
[2020-12-27] MEDS: lisinopriL 10 MG TAB PO SCH (08:24)
[2020-12-27] MEDS: VIT A,C & E-LUTEIN-MINERALS 1 EACH TAB PO SCH (08:24)
[2020-12-27 08:27] VITALS: BP 120/57; PULSE 97; RESP 16
[2020-12-27] MEDS ORDERED: lisinopriL 10 MG TAB PO SCH (09:00)
[2020-12-27] MEDS ORDERED: lisinopriL 5 MG TAB PO SCH (12:00)
--- NOTE | 2020-12-27 12:11 | P.PN ---
Subjective This is a pleasant 85 year old female past medical history significant for coronary artery disease s/p PCI LAD and RCA 08/2020, hypertension and dysl ipidemia. She follows in the office with Dr. Oscar. She was evaluated by Dr. Rosado on admission secondary to fatigue with bradycardia. Echocardiogram obtained on this admission revealed preserved LV systolic function with EF greater than 55%, mild MR, mild TR and mild pulmonary hypertension with RVSP [address] Rosado decreased her dose beta blockers. She is currently maintaining heart rates in the 50s. Blood pressure 159/84. She is also on amlodipine 2.5 ,g chuyita;u. aspirin 81 mg daily, atorvastatin 40 mg daily, plavix 75 mg daily and lisinopril 2.5 mg daily. She was found to have a suppressed TSH of less than 0.15. Renal artery duplex performed this morning revealed elevated bilateral renal artery proximal velocities suggestive of renal artery stenosis greater than left. Incidental finding of cholelithiasis. 12/27/2020 Pt seen and examined resting comfortably in bed in no acute distress. She denies chest pain, shortness of breath, dizziness or palpitations. Blood pressure 100/60 heart rate 97 afebrile and maintaining oxygen saturation on room air. Orthostatic vital signs unremarkable. Laboratory data reviewed, sodium 142, potassium 4.5 and creatinine 0.74. GENERAL: Well-appearing, well-nourished and in no acute distress. NECK: Supple without JVD or thyromegaly. LUNGS: Breath sounds clear to auscultation bilaterally. Respiration equal and unlabored. No wheezes, rales or rhonchi. HEART: Regular rate and rhythm with systolic ejection murmur at the base, no rubs or gallops. S1 and S2 heard. EXTREMITIES: Normal range of motion, no edema. No clubbing or cyanosis. Periphe ral pulses intact. ASSESSMENT Sick sinus syndrome with underling IVCD Nausea, vomiting and diarrhea Coronary artery disease s/p PCI 08/2020 Hypertension Dyslipidemia Renal artery stenosis, mild PLAN She has been seen by nephrology and her blood pressure regimen has been adjusted. Recommend monotherapy at this time until maximized before adding a second medication. Discontinue IV antihypertensives. Unclear why her blood pressure is elevating with exertion. Further blood pressure management can be handled in the outpatient setting. Follow up with Dr. Santoro upon discharge. Nurse Practitioner note has been reviewed, I agree with a documented findings and plan of care. Patient was seen and examined. Objective - Vital Signs Vital signs: Vital Signs Temp 97.7 F 12/27/20 04:00 Pulse 97 12/27/20 08:00 Resp 16 12/27/20 08:00 BP 120/57 12/27/20 08:00 Pulse Ox 98 12/27/20 08:00 Intake & Output 12/26/20 12/27/20 12/27/20 18:59 06:59 18:59 Intake Total 545 118 Balance 545 118 Weight 55.2 kg Intake: Oral 545 118 Other: Voiding Method Toilet Toilet Toilet # Voids 1 2 1 # Bowel Movements 1 1 - Labs CBC & Chem 7: 12/25/20 06:43 12/27/20 07:29 Labs: Abnormal Lab Results - Last 24 Hours (Table) 12/27/20 Range/Units 07:29 Chloride 109 H (98-107) mmol/L BUN 20 H (7-17) mg/dL Glucose 119 H (74-99) mg/dL
--- NOTE | 2020-12-27 12:38 | P.PN ---
Subjective Patient is seen in follow-up for renal artery stenosis. Blood pressure has been fairly stable although the standing blood pressure was 100/60 this morning. She denies any dizziness or lightheadedness. Good urine output. Vital signs are stable. General: The patient appeared well nourished and normally developed. HEENT: Head exam is unremarkable. LUNGS: Breath sounds decreased. HEART: Rate and Rhythm are regular. ABDOMEN: Soft, nontender. EXTREMITITES: No edema. Objective - Vital Signs Vital signs: Vital Signs Temp 97.7 F 12/27/20 04:00 Pulse 97 12/27/20 08:00 Resp 16 12/27/20 08:00 BP 120/57 12/27/20 08:00 Pulse Ox 98 12/27/20 08:00 Intake & Output 12/26/20 12/27/20 12/27/20 18:59 06:59 18:59 Intake Total 545 118 Balance 545 118 Weight 55.2 kg Intake: Oral 545 118 Other: Voiding Method Toilet Toilet Toilet # Voids 1 2 1 # Bowel Movements 1 1 - Labs CBC & Chem 7: 12/25/20 06:43 12/27/20 07:29 Labs: Abnormal Lab Results - Last 24 Hours (Table) 12/27/20 Range/Units 07:29 Chloride 109 H (98-107) mmol/L BUN 20 H (7-17) mg/dL Glucose 119 H (74-99) mg/dL Assessment and Plan Plan: Assessment: 1. Bilateral renal artery stenosis. No evidence of renal failure. Creatinine 0.74. No evidence of fluid overload or pulmonary edema and heart failure/. UA benign. 2. Bradycardia. Beta gisele discontinued. Cardiology following. Plan: Maintain amlodipine. Decrease lisinopril to 5 mg twice a day. Goal blood pressure less than 140/90. Patient was advised to monitor her blood pressure at home. To hold lisinopril if standing blood pressure less than 120/70 and to call if staying above 140/90. Follow up outpatient in 1 week. Case discussed with the primary attending as well.
--- NOTE | 2020-12-27 12:43 | P.DS ---
Providers Date of admission: 12/23/20 13:16 Expected date of discharge: 12/27/20 (Bilateral renal artery stenosis, sympt omatic bradycardia with the sensitivity to beta gisele. Resistant hypertension) Attending physician: Cb Ansari Consults: 12/23/20 13:16 Consult Physician Urgent Consulting Provider: [facility] Consult Reason/Comments: Bradycardia Do you want consulting provider notified?: Yes 12/26/20 12:21 Consult Physician Urgent Consulting Provider: Lindy Thorpe Consult Reason/Comments: Renal artery stenosis bilateral, accelerated hypertension with minimal exer Do you want consulting provider notified?: Yes Primary care physician: Cb Ansari Dictation on discharge summary date of service 12/27/2020. Dictation by Final diagnoses: #1 symptomatic bradycardia, with the hyper assistive to beta blockers. Seen by cardiology Dr. Campbell. #2 questionable sick sinus syndrome to be followed by the cardiology. #3 bilateral renal artery stenosis. #4 hypertension acceleration with ambulation pulse hypotension on the orthostatic. Seen by nephrology Dr. Dumont #5 admitted with dehydration and creatinine 1.3 probably prerenal resolved with hydration mild and gentle. #6 history of coronary artery disease atherosclerotic heart disease status post 2 stent placed in LAD and RCA by Dr. Alvarez in August. #7 recent surgery on the left hand and forearm by Dr. Kerr still not healing well and patient continuing rehabilitation. #8 all 4 until seen in the office next week. #9 resolved symptoms of nausea or vomiting or lightheaded or diarrhea with the etiology nonspecific. #10 resistant hypertension ER presentation: Patient has symptomatic bradycardia, admitted with cardiology consultation with helping the beta blockers and the heart rate was in the 40s with the dizziness and blurred vision and lightheaded. Patient admitted to the hospital quality assurance monitor final. And seen by the aviculturist. Patient was under care Dr. Mariah Kern, and family requested that I extended her and to follow with me in the office. And this is a first contact with the patient Hospital course: Patient subsequently found that she had elevated creatinine and BUN with mild dehydration IV gentle was started with IV fluid and patient her creatinine and a BUN has been returned to normal base. Subsequently Dr. ABE Rosado started her on small doses of beta blockers 12.5 mg of Lopressor and she responded with bradycardiac again. Because of the persistent hypertension with increased blood pressure with minimal exertion medication was adjusted, and renal function checked with also renal blood flow for possibility of aortic stenosis because of resistant hypertension and renal ultrasound Resulted in the test indicating bilateral renal artery stenosis. Nephrology consult with Dr. Dumont was obtained and he is started her on small doses of BAHMAN inhibitor after adjusting the dose to 5 mg twice a day and amlodipine 2.5 mg twice a day. With the blood pressure accepted the range not higher than 140 systolic and not lower than 120 systolic and advised that she call Dr. Dumont or the cold Dr. Fong if there is any fluctuation. This patient stable general condition ambulatory, no blurred vision no dizziness no lightheaded no nausea no vomiting and cleared from cardiology and nephrology patient will plan for discharge today home and having appointment with her aviculturist Dr. Oscar and primary care Dr. Fong, and Dr. Dumont the auditor tax. [id number] exam on discharge: Her blood pressure medication adjusted and decreased to 5 mg twice a day of lisinopril and advised to call the office if blood pressure drop again and with symptoms The head was normocephalic and atraumatic pupil was had equal reactive conjunctiva was pink sclera was nonicteric. Hearing is normal Oropharynx natural teas normal swallowing. Neck was supple no JVD no thyromegaly no lymphadenopathy trachea midline. Chest was clear to auscultation percussion no wheezes no rhonchi's. Heart regular sinus rhythm and currently bradycardia is resolved with discontinuation of the beta blockers she had an echocardiogram during her presence which was normal ejection fraction. Abdomen soft nontender positive bowel sound no diarrhea and the test was ordered wasn't done because patient did not have diarrhea. Extremities no edema positive pulses. And ambulatory. Assessment and plan Patient will be discharged home today stable general condition. Advised for follow-up next week. Follow-up with Dr. Oscar cardiology, follow-up with Dr. Dumont nephrology. Medications reviewed and prescription given. Plan - Discharge Summary Discharge Rx Participant: Yes New Discharge Prescriptions: New Nitroglycerin Sl Tabs [Nitrostat] 0.4 mg SUBLINGUAL Q5M PRN tab PRN Reason: Chest Pain amLODIPine [Norvasc] 2.5 mg PO BID #60 tab lisinopriL [Zestril] 5 mg PO BID #60 tab Continue Vit C/E/Zn/Coppr/Lutein/Zeaxan [Preservision Areds 2 Softgel] 1 cap PO BID Cetirizine HCl [Zyrtec] 10 mg PO DAILY Multivit-Min/FA/Lycopen/Lutein [Centrum Silver Tablet] 1 tab PO DAILY Aspirin 81 mg PO DAILY chew Atorvastatin [Lipitor] 40 mg PO HS #90 tab Clopidogrel [Plavix] 75 mg PO DAILY #90 tab Discontinued hydroCHLOROthiazide [Hydrodiuril] 25 mg PO DAILY #90 tab Metoprolol Tartrate [Lopressor] 25 mg PO BID #180 tab lisinopriL [Zestril] 20 mg PO BID #90 tab Discharge Medication List Cetirizine HCl [Zyrtec] 10 mg PO DAILY 08/01/20 [History] Vit C/E/Zn/Coppr/Lutein/Zeaxan [Preservision Areds 2 Softgel] 1 cap PO BID 08/01/20 [History] Multivit-Min/FA/Lycopen/Lutein [Centrum Silver Tablet] 1 tab PO DAILY 09/07/20 [History] Aspirin 81 mg PO DAILY chew 09/13/20 [Rx] Atorvastatin [Lipitor] 40 mg PO HS #90 tab 09/13/20 [Rx] Clopidogrel [Plavix] 75 mg PO DAILY #90 tab 09/13/20 [Rx] Nitroglycerin Sl Tabs [Nitrostat] 0.4 mg SUBLINGUAL Q5M PRN tab 12/27/20 [Rx] amLODIPine [Norvasc] 2.5 mg PO BID #60 tab 12/27/20 [Rx] lisinopriL [Zestril] 5 mg PO BID #60 tab 12/27/20 [Rx] Follow up Appointment(s)/Referral(s): Terry Oscar MD [STAFF PHYSICIAN] - 2 Weeks None,Stated [REFERRING] - 1-2 days Fara Salazar MD [STAFF PHYSICIAN] - 1 Week ( Onset hyper thyroidism discovered on this admission)
== END 2020-12-27 13:43 | disposition home or self-care (01) | DRG 309 ==
LOC: EC 09:27 → 3SCARD 13:16
PROVIDERS: ADMIT Internal Medicine; ATTEND Internal Medicine
DX: R00.1 Bradycardia, unspecified (principal); N17.9 Acute kidney failure, unspecified; I13.10 Hypertensive heart and chronic kidney disease without heart failure, with stage 1 through stage 4 chronic kidney disease, or unspecified chronic kidney disease; N18.30 Chronic kidney disease, stage 3 unspecified; Z20.822 Contact with and (suspected) exposure to COVID-19; I70.1 Atherosclerosis of renal artery; I27.20 Pulmonary hypertension, unspecified; T44.7X5A Adverse effect of beta-adrenoreceptor antagonists, initial encounter; E86.0 Dehydration; I95.1 Orthostatic hypotension; I08.1 Rheumatic disorders of both mitral and tricuspid valves; K80.20 Calculus of gallbladder without cholecystitis without obstruction; I25.10 Atherosclerotic heart disease of native coronary artery without angina pectoris; I44.7 Left bundle-branch block, unspecified; E05.90 Thyrotoxicosis, unspecified without thyrotoxic crisis or storm; R19.7 Diarrhea, unspecified; R11.10 Vomiting, unspecified; H40.9 Unspecified glaucoma; E78.5 Hyperlipidemia, unspecified; M19.90 Unspecified osteoarthritis, unspecified site; Z95.810 Presence of automatic (implantable) cardiac defibrillator; Z95.5 Presence of coronary angioplasty implant and graft; Z90.11 Acquired absence of right breast and nipple; Z90.710 Acquired absence of both cervix and uterus; Z79.02 Long term (current) use of antithrombotics/antiplatelets; Z79.899 Other long term (current) drug therapy; Z79.82 Long term (current) use of aspirin; Z92.21 Personal history of antineoplastic chemotherapy; Z85.3 Personal history of malignant neoplasm of breast; Z87.440 Personal history of urinary (tract) infections
CPT/HCPCS: 36415; 71046; 80048; 80053; 80061; 80069; 81001; 82150; 82533; 83690; 83735; 83880; 84439; 84443; 84481; 84484; 85025; 85610; 85730; 87636; 93005; 93306; 93975; 96360; 96361; 99285

== ENCOUNTER → 2021-01-02 | Outpatient (CLI) | payer MEDICARE ==
--- NOTE | 2021-01-02 16:22 | XR ---
EXAMINATION TYPE: XR wrist complete LT, XR forearm LT DATE OF EXAM: 01/02/2021 CLINICAL HISTORY: History of fracture. Patient had interval reduction. TECHNIQUE: Two views of the left forearm and 2 views of the left wrist are obtained. COMPARISON: 09/01/2020 12/20/2020 outside study FINDINGS: Left wrist: Severe diffuse bony demineralization. Plate and screw fixation device traverses a previou sly seen fracture of the left distal radius with near complete alignment. There is near complete alig nment of the distal left ulnar fracture deformity. . There is narrowing of the radiocarpal joint spac e. Narrowing of the carpometacarpal joint space of the first digit. These findings are suggestive of osteoarthritic degenerative changes. Left forearm: Severe bony demineralization of the left forearm. No evidence of acute fracture or disl ocation of the proximal ulna or radius. Again, plate and screw fixation device of the distal radius w ith near complete alignment. Near complete alignment of the distal ulnar fracture deformity.. IMPRESSION: 1. Severe bony demineralization of the left wrist and forearm. No evidence of acute fracture or dislo cation of the left wrist or forearm. Plate and screw fixation device of the previously seen distal ra dial fracture with near complete alignment. Near complete alignment of the distal ulnar fracture defo rmity.
[2021-01-02 21:06] LABS: T4, Free (Free Thyroxine) 0.9 ng/dL (0.80-1.80)
[2021-01-02 21:27] LABS: Thyroid Peroxidase Antibodies <28.0 U/mL (0.0-60.0)
== END | disposition home or self-care (01) ==
LOC: LABWHC1 14:10
PROVIDERS: ATTEND Internal Medicine
DX: E05.90 Thyrotoxicosis, unspecified without thyrotoxic crisis or storm (principal); Z87.81 Personal history of (healed) traumatic fracture
CPT/HCPCS: 36415; 84439; 84443; 86376; 86800

== ENCOUNTER 2021-08-28 14:52 | Emergency (ER) | payer MEDICARE ==
[2021-08-28 15:09] VITALS: BP 196/78; PULSE 51; RESP 20; TEMP 97.2
[2021-08-28 15:33] LABS: Basophils # (A) 0.1 k/uL (0-0.2); Basophils % (A) 1 %; Eosinophils # (A) 0.2 k/uL (0-0.7); Eosinophils % (A) 2 %; HCT 42.1 % (34.0-46.0); HGB 13.4 gm/dL (11.4-16.0); Lymphocytes # (A) 1.6 k/uL (1.0-4.8); Lymphocytes % (A) 19 %; MCH 28.5 pg (25.0-35.0); MCV 89.2 fL (80.0-100.0); Mean Platelet Volume 8.2; Monocytes # (A) 0.6 k/uL (0-1.0); Monocytes % (A) 7 %; Neutrophils % (A) 69 %; Platelet Count 327 k/uL (150-450); RBC 4.72 m/uL (3.80-5.40); RDW 13.8 % (11.5-15.5); WBC 8.7 k/uL (3.8-10.6)
[2021-08-28 15:46] LABS: INR 0.9 (<1.2); Partial Thromboplastin Time 23.9 sec (22.0-30.0)
[2021-08-28 15:47] LABS: Albumin 3.9 g/dL (3.5-5.0); Calcium 8.9 mg/dL (8.4-10.2); Potassium 3.9 mmol/L (3.5-5.1); Total Bilirubin 0.7 mg/dL (0.2-1.3); Total Protein 6.6 g/dL (6.3-8.2)
--- NOTE | 2021-08-28 16:04 | ED ---
Abdominal Pain HPI - General Chief Complaint: Abdominal Pain Stated Complaint: Chest/Abd Pain Time Seen by Provider: 08/28/21 15:53 Source: patient Mode of arrival: ambulatory Limitations: no limitations - History of Present Illness Initial Comments: This is a pleasant 86-year-old female with a history of hypertension, non-STEMI, thyroid disease, and hyperlipidemia. She presents to emergency department today complaining of right upper quadrant abdominal pain with nausea which isn't present for about 2 hours. She denies any exacerbating factors other than palpation. No radiation. No shortness of breath or chest pain. No headache, no fever or chills, no changes in vision or hearing, no sore throat or difficulty with speech, no neck pain, no chest pain or shortness of breath, no nausea vomiting, no changes in urination or bowel movements, no numbness or tingling, no extremity pain, no skin rashes or lesions. MD Complaint: abdominal pain Onset/Timin -: hour(s) - Related Data Home Medications Medication Instructions Recorded Confirmed Cetirizine HCl [Zyrtec] 10 mg PO HS 08/01/20 08/28/21 Vit C/E/Zn/Coppr/Lutein/Zeaxan 1 cap PO BID 08/01/20 08/28/21 [Preservision Areds 2 Softgel] Multivit-Min/FA/Lycopen/Lutein 1 tab PO HS 09/07/20 08/28/21 [Centrum Silver Tablet] Aspirin EC [Ecotrin Low Dose] 81 mg PO HS 08/28/21 08/28/21 Clopidogrel [Plavix] 75 mg PO HS 08/28/21 08/28/21 Lisinopril [Prinivil] 10 mg PO BID 08/28/21 08/28/21 Nitroglycerin Sl Tabs [Nitrostat] 0.4 mg SL Q5M PRN 08/28/21 08/28/21 Previous Rx's Medication Instructions Recorded Atorvastatin [Lipitor] 40 mg PO HS #90 tab 09/13/20 amLODIPine [Norvasc] 2.5 mg PO BID #60 tab 12/27/20 Allergies Allergy/AdvReac Type Severity Reaction Status Date / Time No Known Allergies Allergy Verified 08/28/21 15:05 Review of Systems ROS Statement: Those systems with pertinent positive or pertinent negative responses have been documented in the HPI. ROS Other: All systems not noted in ROS Statement are negative. Past Medical History Past Medical History: Cancer, Eye Disorder, Musculoskeletal Disorder Additional Past Medical History / Comment(s): Glaucoma, breast cancer 1994-had surg. & chemo History of Any Multi-Drug Resistant Organisms: None Reported Past Surgical History: Breast Surgery, Heart Catheterization With Stent, Hysterectomy Additional Past Surgical History / Comment(s): right mastectomy Past Anesthesia/Blood Transfusion Reactions: No Reported Reaction Date of Last Stent Placement:: 2020 Past Psychological History: No Psychological Hx Reported Smoking Status: Never smoker Past Alcohol Use History: None Reported Past Drug Use History: None Reported - Past Family History Father Family Medical History: Cancer Mother History Unknown: Yes Brother(s) Family Medical History: Cancer General Exam - General Exam Comments Initial Comments: 86-year-old female in minimal distress secondary to abdominal pain. Patient does not appear to be ill or toxic. Limitations: no limitations General appearance: alert, in no apparent distress Head exam: Present: atraumatic, normocephalic, normal inspection Eye exam: Present: normal appearance, PERRL, EOMI. Absent: scleral icterus, conjunctival injection, periorbital swelling ENT exam: Present: normal exam, mucous membranes moist Neck exam: Present: normal inspection. Absent: tenderness, meningismus, lymphadenopathy Respiratory exam: Present: normal lung sounds bilaterally. Absent: respiratory distress, wheezes, rales, rhonchi, stridor Cardiovascular Exam: Present: regular rate, normal rhythm, normal heart sounds. Absent: systolic murmur, diastolic murmur, rubs, gallop, clicks GI/Abdominal exam: Present: soft, tenderness, normal bowel sounds. Absent: distended, guarding, rebound, rigid Extremities exam: Present: normal inspection, full ROM, normal capillary refill. Absent: tenderness, pedal edema, joint swelling, calf tenderness Back exam: Present: normal inspection Neurological exam: Present: alert, oriented X3, CN II-XII intact Psychiatric exam: Present: normal affect, normal mood Skin exam: Present: warm, dry, intact, normal color. Absent: rash Course Vital Signs 08/28/21 15:05 Temperature 97.2 F L Pulse Rate 51 L Respiratory 20 Rate Blood Pressure 196/78 O2 Sat by Pulse 98 Oximetry - Reevaluation(s) Reevaluation #1: 08/28/21 16:31 Quadrant ultrasound ordered. Patient's workup so far is essentially nondiagnostic. EKG shows no changes from December 2020. Troponin is negative Reevaluation #2: 08/28/21 17:27 Patient improved after pain medication. Awaiting imaging results. Hemodynamic stable. Medical Decision Making - Medical Decision Making Differential includes cardiac disease, intra-abdominal disease, gallbladder disease, pancreatitis, peptic ulcer disease, unlikely be pulmonary as patient has no cough or respiratory distress. Case was initially discussed with the ED attending physician, EKG side off by Dr. Polk. Noted this pain does not appear to be consistent with cardiac etiology as patient has no chest pain, no shortness of breath, however, pain is in the right upper quadran--will order a troponin. EKG did not show any acute changes. The patient's workup reveals cholelithiasis without evidence of cholecystitis or obstruction. Patient was rechecked prior to discharge and was in no pain. Consultation on the gallbladder diet. Patient has an appointment tomorrow with her regular physician. Given follow-up with general surgery. Told to call tomorrow for an appointment. - Lab Data Result diagrams: 08/28/21 15:11 08/28/21 15:11 Lab Results 08/28/21 08/28/21 08/28/21 Range/Units 15:11 15:11 15:11 WBC 8.7 (3.8-10.6) k/uL RBC 4.72 (3.80-5.40) m/uL Hgb 13.4 (11.4-16.0) gm/dL Hct 42.1 (34.0-46.0) % MCV 89.2 (80.0-100.0) fL MCH 28.5 (25.0-35.0) pg MCHC 32.0 (31.0-37.0) g/dL RDW 13.8 (11.5-15.5) % Plt Count 327 (150-450) k/uL MPV 8.2 Neutrophils % 69 % Lymphocytes % 19 % Monocytes % 7 % Eosinophils % 2 % Basophils % 1 % Neutrophils # 6.0 (1.3-7.7) k/uL Lymphocytes # 1.6 (1.0-4.8) k/uL Monocytes # 0.6 (0-1.0) k/uL Eosinophils # 0.2 (0-0.7) k/uL Basophils # 0.1 (0-0.2) k/uL PT 10.0 (9.0-12.0) sec INR 0.9 (<1.2) APTT 23.9 (22.0-30.0) sec Sodium 137 (137-145) mmol/L Potassium 3.9 (3.5-5.1) mmol/L Chloride 104 (98-107) mmol/L Carbon Dioxide 27 (22-30) mmol/L Anion Gap 6 mmol/L BUN 21 H (7-17) mg/dL Creatinine 0.78 (0.52-1.04) mg/dL Est GFR (CKD-EPI)AfAm 81 (>60 ml/min/1.73 sqM) Est GFR (CKD-EPI)NonAf 70 (>60 ml/min/1.73 sqM) Glucose 115 H (74-99) mg/dL Calcium 8.9 (8.4-10.2) mg/dL Magnesium (1.6-2.3) mg/dL Total Bilirubin 0.7 (0.2-1.3) mg/dL AST 39 H (14-36) U/L ALT 24 (4-34) U/L Alkaline Phosphatase 93 (38-126) U/L Troponin I (0.000-0.034) ng/mL Total Protein 6.6 (6.3-8.2) g/dL Albumin 3.9 (3.5-5.0) g/dL Amylase 82 (30-110) U/L Lipase 63 (23-300) U/L 08/28/21 08/28/21 08/28/21 Range/Units 15:11 15:11 18:38 WBC (3.8-10.6) k/uL RBC (3.80-5.40) m/uL Hgb (11.4-16.0) gm/dL Hct (34.0-46.0) % MCV (80.0-100.0) fL MCH (25.0-35.0) pg MCHC (31.0-37.0) g/dL RDW (11.5-15.5) % Plt Count (150-450) k/uL MPV Neutrophils % % Lymphocytes % % Monocytes % % Eosinophils % % Basophils % % Neutrophils # (1.3-7.7) k/uL Lymphocytes # (1.0-4.8) k/uL Monocytes # (0-1.0) k/uL Eosinophils # (0-0.7) k/uL Basophils # (0-0.2) k/uL PT (9.0-12.0) sec INR (<1.2) APTT (22.0-30.0) sec Sodium (137-145) mmol/L Potassium (3.5-5.1) mmol/L Chloride (98-107) mmol/L Carbon Dioxide (22-30) mmol/L Anion Gap mmol/L BUN (7-17) mg/dL Creatinine (0.52-1.04) mg/dL Est GFR (CKD-EPI)AfAm (>60 ml/min/1.73 sqM) Est GFR (CKD-EPI)NonAf (>60 ml/min/1.73 sqM) Glucose (74-99) mg/dL Calcium (8.4-10.2) mg/dL Magnesium 2.1 (1.6-2.3) mg/dL Total Bilirubin (0.2-1.3) mg/dL AST (14-36) U/L ALT (4-34) U/L Alkaline Phosphatase (38-126) U/L Troponin I <0.012 <0.012 (0.000-0.034) ng/mL Total Protein (6.3-8.2) g/dL Albumin (3.5-5.0) g/dL Amylase (30-110) U/L Lipase (23-300) U/L - EKG Data EKG Comments: EKG done at 1512 and read by me 1600 revealed sinus bradycardia with a rate of 50, left axis deviation, left bundle branch block, respirations 140 ms. Remainder of intervals are stable. No significant change from the previous s tudy from December 2020. Disposition Clinical Impression: Right upper quadrant abdominal pain, Cholelithiasis without cholecystitis Disposition: HOME SELF-CARE Condition: Good Instructions (If sedation given, give patient instructions): Biliary Colic (ED), Gallstones (ED), Low Fat Diet (ED) Additional Instructions: Adhere to a low fat, low grease diet, make a follow-up appointment with the general surgeon as discussed. Is patient prescribed a controlled substance at d/c from ED?: No Referrals: Cb Ansari MD [Primary Care Provider] - 1-2 days Mahesh Maradiaga MD [STAFF PHYSICIAN] - 08/31/21 Time of Disposition: 17:50
[2021-08-28] MEDS ORDERED: FAMOTIDINE 20 MG/2 ML VIAL IV STA (16:05)
[2021-08-28] MEDS ORDERED: MORPHINE SULFATE 4 MG/ML SYRINGE IV STA (16:05)
[2021-08-28] MEDS ORDERED: SODIUM CHLORIDE 0.9% 500 ML 500 ML IV STA (16:05)
[2021-08-28] MEDS ORDERED: ONDANSETRON 4 MG/2 ML VIAL IVP STA (16:05)
--- NOTE | 2021-08-28 17:32 | XR ---
EXAMINATION TYPE: XR chest 1V portable DATE OF EXAM: 08/28/2021 COMPARISON: 12/23/2020 HISTORY: Epigastric pain TECHNIQUE: Single frontal view of the chest is obtained. FINDINGS: There is no focal air space opacity, pleural effusion, or pneumothorax seen. The cardiac silhouette size is stable. The osseous structures are intact. IMPRESSION: No acute process.
--- NOTE | 2021-08-28 17:35 | US ---
EXAMINATION TYPE: US abdomen limited DATE OF EXAM: 08/28/2021 COMPARISON: NONE CLINICAL HISTORY: RUQ pain. RUQ pain EXAM MEASUREMENTS: Liver Length: 14.2 cm Gallbladder Wall: 0.2 cm CBD: 0.2 cm Right Kidney: 9.0 x 3.8 x 4.1 cm Pancreas: visualized portions wnl, limited by overlying midline bowel gas Liver: 1.8cm cyst left lobe Gallbladder: 0.6cm echogenic focus, compatible with gallstone. Evidence for sonographic Clemente's sign: no CBD: visualized portions wnl, limited by overlying bowel gas Right Kidney: wnl IMPRESSION: Cholelithiasis without sonographic evidence for acute cholecystitis or acute abnormality. Incidental simple left hepatic cyst.
== END 2021-08-28 20:17 | disposition home or self-care (01) ==
LOC: EC 14:52
DX: K80.20 Calculus of gallbladder without cholecystitis without obstruction (principal); Z79.82 Long term (current) use of aspirin; Z79.02 Long term (current) use of antithrombotics/antiplatelets; Z85.3 Personal history of malignant neoplasm of breast; Z90.710 Acquired absence of both cervix and uterus
CPT/HCPCS: 99284; 96374; 96375 ×2; 36415; 93005; 80053; 82150; 83690; 83735; 84484; 85025; 85610; 85730; 71045; 76705; J2270; J2405

== ENCOUNTER 2021-09-11 05:55 | Day surgery (SDC) | payer MEDICARE ==
[2021-09-07 12:00] VITALS: BMI 22.6
[~2021-09-11 05:55] MED LIST changes: +ACETAMINOPHEN TAB 500 MG TAB PO PRN; +DEXAMETHASONE SOD PHOSPHATE 4 MG/ML 1 ML VIAL IV ONE; +HEPARIN SODIUM,PORCINE/PF 5,000 UNIT/0.5 ML SYRINGE SQ PRN; +HYDROmorphone 0.5 MG/0.5 ML SYRINGE IVP PRN; +LACTATED RINGERS 1,000 ML IV SCH
[2021-09-11] MEDS ORDERED: SUGAMMADEX SODIUM 500 MG/5 ML SDV IV ONE (07:54)
[2021-09-11] MEDS ORDERED: LIDOCAINE 1% INJ 10MG/ML (20 ML MDV) ONE (07:54)
[2021-09-11] MEDS ORDERED: LABETALOL 5 MG/ML VIAL MDV ONE (07:54)
[2021-09-11] MEDS ORDERED: NEOSTIGMINE 1 MG/ML 10 ML VIAL ONE (07:54)
[2021-09-11] MEDS ORDERED: fentaNYL (PF) 50 MCG/ML 2 ML AMP ONE (07:54)
[2021-09-11] MEDS ORDERED: SUCCINYLCHOLINE CHLORIDE 100 MG/5 ML SYR IV ONE (07:54)
[2021-09-11] MEDS ORDERED: PROPOFOL 10 MG/ML 20 ML VIAL IV ONE (07:54)
[2021-09-11] MEDS ORDERED: GLYCOPYRROLATE 0.2 MG/ML 2 ML VIAL ONE (07:54)
[2021-09-11] MEDS ORDERED: ROCURONIUM 10 MG/ML (5 ML VIAL) IV ONE (07:54)
[2021-09-11] MEDS ORDERED: BUPIVACAINE (PF) 0.25% 30 ML VIAL SQ ONE (08:26)
--- NOTE | 2021-09-11 08:47 | P.GSHP ---
History of Present Illness H&P Date: 09/11/21 Chief Complaint: Cholelithiasis, cholecystitis This is an 86-year-old female who presents today for laparoscopic cholecystectomy. Patient has history of gallstones. She's had right upper quadrant pain. Past Medical History Past Medical History: Coronary Artery Disease (CAD), Cancer, CVA/TIA, Eye Disorder, Hyperlipidemia, Hypertension, Musculoskeletal Disorder, Osteoarthritis (OA), Thyroid Disorder Additional Past Medical History / Comment(s): Hx poss mild CVA. Glaucoma, breast cancer 1994-had surg & chemo. Bruises easily. Varicose veins, occ edema BLE. History of Any Multi-Drug Resistant Organisms: None Reported Past Surgical History: Breast Surgery, Heart Catheterization With Stent, Hysterectomy Additional Past Surgical History / Comment(s): Right mastectomy. PTCA w/ 2 stents. ORIF Lt arm Past Anesthesia/Blood Transfusion Reactions: No Reported Reaction, Family History of Problems w/ Anesthesia Additional Past Anesthesia/Blood Transfusion Reaction / Comment(s): Son wakes up during surgery. Date of Last Stent Placement:: 08/2020 Smoking Status: Never smoker - Past Family History Father Family Medical History: Cancer Mother History Unknown: Yes Family Medical History: Cancer Brother(s) Family Medical History: Cancer Medications and Allergies Home Medications Medication Instructions Recorded Confirmed Type Cetirizine HCl [Zyrtec] 10 mg PO HS 08/01/20 09/11/21 History Vit C/E/Zn/Coppr/Lutein/Zeaxan 1 cap PO BID 08/01/20 09/11/21 History [Preservision Areds 2 Softgel] Multivit-Min/FA/Lycopen/Lutein 1 tab PO HS 09/07/20 09/11/21 History [Centrum Silver Tablet] Atorvastatin [Lipitor] 40 mg PO HS #90 tab 09/13/20 09/11/21 Rx amLODIPine [Norvasc] 2.5 mg PO BID #60 tab 12/27/20 09/11/21 Rx Aspirin EC [Ecotrin Low Dose] 81 mg PO HS 08/28/21 09/11/21 History Clopidogrel [Plavix] 75 mg PO HS 08/28/21 09/11/21 History Lisinopril [Prinivil] 10 mg PO BID 08/28/21 09/11/21 History Nitroglycerin Sl Tabs [Nitrostat] 0.4 mg SL Q5M PRN 08/28/21 09/11/21 History Artificial Tears-Hypromellose 1 drops BOTH EYES QID PRN 09/07/21 09/11/21 History [Artificial Tear Drops] Allergies Allergy/AdvReac Type Severity Reaction Status Date / Time No Known Allergies Allergy Verified 09/11/21 07:19 Surgical - Exam Vital Signs Temp Pulse Resp BP Pulse Ox 57 F L 57 L 18 175/80 98 09/11/21 07:00 09/11/21 07:00 09/11/21 07:00 09/11/21 07:00 09/11/21 07:00 - General well developed, well nourished, no distress - Eyes PERRL - ENT normal pinna - Neck no masses - Respiratory normal expansion - Cardiovascular Rhythm: regular - Abdomen Abdomen: soft, non tender Assessment and Plan Assessment: Cholecystitis Cholelithiasis We'll perform laparoscopic cholecystectomy
--- NOTE | 2021-09-11 08:48 | P.OP ---
Date of Procedure: 09/11/21 Preoperative Diagnosis: Cholelithiasis Cholecystitis Postoperative Diagnosis: Cholelithiasis Cholecystitis Procedure(s) Performed: Laparoscopic cholecystectomy Anesthesia: ROMINA Surgeon: Mahesh Maradiaga Estimated Blood Loss (ml): 5 Pathology: other (Gallbladder) Condition: stable Disposition: PACU Description of Procedure: The patient was placed on the operating table. The patient received a general endotracheal tube anesthesia. The patients abdomen was prepped and draped in the usual sterile fashion. Through an infraumbilical stab incision, the fascia of the anterior abdominal wall was grasped with a pair of Kochers and then the Veress needle was placed in the peritoneal cavity. Position of the Veress needle was confirmed with positive drop test. The abdomen was then insufflated. After adequate insufflation, the 10 mm trocar was placed in the peritoneal cavity. Following this the laparoscope was placed in the peritoneal cavity. The patient was placed in the head-up, right side up position and then a 5 mm trocar was placed in the right lateral and right subcostal position under direct visualization. A 8 mm trocar was placed in the epigastric position. The gallbladder was grasped in the fundus and infundibulum. Traction on the gallbladder was placed in the lateral and the cephalad positions. The triangle of Calot was visualized.. The cystic duct was bluntly dissected until the union of the cystic duct and common bile duct wa s seen. A critical view of safety was achieved. The cystic duct was then divided and sealed with the Harmonic scissors. A PDS Endoloop was then placed throughout the cystic duct stump. The cystic artery divided and sealed with the Harmonic scissors. The gallbladder was then removed from the liver bed using Harmonic scissors. The gallbladder was then extracted through the epigastric port site. Operative field was checked for any bleeding spots and Harmonic scissors was used to coagulate the liver bed. The abdomen was irrigated. The trocars were removed. The skin was closed using interrupted 3-0 Vicryl suture. Dermabond dressing were applied. The patient tolerated the procedure well.
[2021-09-11] MEDS ORDERED: ONDANSETRON 4 MG/2 ML VIAL IVP ONE (09:05)
[2021-09-11 09:10] VITALS: TEMP 97.9
[2021-09-11] MEDS ORDERED: HYDROmorphone 0.5 MG/0.5 ML SYRINGE IVP ONE (09:35)
[2021-09-11] MEDS ORDERED: KETOROLAC 15 MG/ML 1 ML VIAL IVP ONE ×2 (09:42)
[2021-09-11] MEDS ORDERED: LACTATED RINGERS 1,000 ML IV ONE (09:50)
[2021-09-11 11:14] VITALS: BP 167/63; PULSE 50; RESP 16
== END 2021-09-11 11:46 | disposition home or self-care (01) ==
LOC: OR 05:55
PROVIDERS: ATTEND Surgery
DX: K80.11 Calculus of gallbladder with chronic cholecystitis with obstruction (principal); I25.10 Atherosclerotic heart disease of native coronary artery without angina pectoris; I10 Essential (primary) hypertension; E78.5 Hyperlipidemia, unspecified; M19.90 Unspecified osteoarthritis, unspecified site; E07.9 Disorder of thyroid, unspecified; H40.9 Unspecified glaucoma; Z85.3 Personal history of malignant neoplasm of breast; Z92.21 Personal history of antineoplastic chemotherapy; I83.90 Asymptomatic varicose veins of unspecified lower extremity; Z95.5 Presence of coronary angioplasty implant and graft; Z90.710 Acquired absence of both cervix and uterus; Z90.11 Acquired absence of right breast and nipple; Z80.9 Family history of malignant neoplasm, unspecified; Z79.02 Long term (current) use of antithrombotics/antiplatelets; Z79.82 Long term (current) use of aspirin; Z79.899 Other long term (current) drug therapy
CPT/HCPCS: 88304; 47562; J1100; J2710; J0690; J2405; J2001; J3010; J1885; J0330; J2704; J1170; J1790; J1644

== ENCOUNTER 2022-06-06 14:49 | Emergency (ER) | payer MEDICARE ==
--- NOTE | 2022-06-06 15:58 | XR ---
EXAMINATION TYPE: XR chest 2V DATE OF EXAM: 06/06/2022 3:54 PM COMPARISON: Chest radiographs from 08/28/2021. TECHNIQUE: XR chest 2V Frontal and lateral views of the chest. CLINICAL INDICATION:Female, 86 years old with history of cough; FINDINGS: Lungs/Pleura: There is no evidence of pleural effusion, focal consolidation, or pneumothorax. Chroni c parenchymal changes. Pulmonary vascularity: Unremarkable. Heart/mediastinum: Cardiomediastinal silhouette is unremarkable. Musculoskeletal: No acute osseous pathology. IMPRESSION: Mild chronic changes without acute cardiopulmonary process.
--- NOTE | 2022-06-06 16:00 | ED ---
URI HPI - General Chief Complaint: Upper Respiratory Infection Stated Complaint: fever, nausea Time Seen by Provider: 06/06/22 15:15 Source: patient Mode of arrival: ambulatory Limitations: no limitations - History of Present Illness MD Complaint: fever, cough, nasal congestion Onset/Timin -: days(s) Consistency: constant Improves With: nothing Worsens With: nothing Context: sick contacts Associated Symptoms: fever, chills, myalgias, nasal congestion, cough Treatments Prior to Arrival: none - Related Data Home Medications Medication Instructions Recorded Confirmed Cetirizine HCl [Zyrtec] 10 mg PO HS 08/01/20 09/11/21 Vit C/E/Zn/Coppr/Lutein/Zeaxan 1 cap PO BID 08/01/20 09/11/21 [Preservision Areds 2 Softgel] Multivit-Min/FA/Lycopen/Lutein 1 tab PO HS 09/07/20 09/11/21 [Centrum Silver Tablet] Aspirin EC [Ecotrin Low Dose] 81 mg PO HS 08/28/21 09/11/21 Clopidogrel [Plavix] 75 mg PO HS 08/28/21 09/11/21 Nitroglycerin Sl Tabs [Nitrostat] 0.4 mg SL Q5M PRN 08/28/21 09/11/21 lisinopriL [Prinivil] 10 mg PO BID 08/28/21 09/11/21 Artificial Tears-Hypromellose 1 drops BOTH EYES QID PRN 09/07/21 09/11/21 [Artificial Tear Drops] Previous Rx's Medication Instructions Recorded Atorvastatin [Lipitor] 40 mg PO HS #90 tab 09/13/20 amLODIPine [Norvasc] 2.5 mg PO BID #60 tab 12/27/20 Acetaminophen Tab [Tylenol] 650 mg PO Q6H #30 tab 09/11/21 Docusate [Colace] 100 mg PO BID #20 capsule 09/11/21 Ibuprofen [Motrin] 600 mg PO Q6HR PRN #40 tab 09/11/21 oxyCODONE HCL [OxyIR] 5 mg PO Q6H PRN 3 Days #10 tab 09/11/21 Allergies Allergy/AdvReac Type Severity Reaction Status Date / Time No Known Allergies Allergy Verified 09/11/21 07:19 Review of Systems ROS Statement: Those systems with pertinent positive or pertinent negative responses have been documented in the HPI. ROS Other: All systems not noted in ROS Statement are negative. Constitutional: Reports: fever, chills Respiratory: Reports: cough. Denies: dyspnea, wheezes, hemoptysis Cardiovascular: Denies: chest pain, edema, syncope Gastrointestinal: Denies: abdominal pain, vomiting, diarrhea Genitourinary: Denies: dysuria, hematuria Musculoskeletal: Reports: myalgia. Denies: back pain Skin: Denies: rash Neurological: Denies: headache, weakness, numbness Past Medical History Past Medical History: Coronary Artery Disease (CAD), Cancer, CVA/TIA, Eye Disorder, Hyperlipidemia, Hypertension, Musculoskeletal Disorder, Osteoarthritis (OA), Thyroid Disorder Additional Past Medical History / Comment(s): Hx poss mild CVA. Glaucoma, breast cancer 1994-had surg & chemo. Bruises easily. Varicose veins, occ edema BLE. History of Any Multi-Drug Resistant Organisms: None Reported Past Surgical History: Breast Surgery, Heart Catheterization With Stent, Hysterectomy Additional Past Surgical History / Comment(s): Right mastectomy. PTCA w/ 2 s tents. ORIF Lt arm Past Anesthesia/Blood Transfusion Reactions: No Reported Reaction, Family History of Problems w/ Anesthesia Additional Past Anesthesia/Blood Transfusion Reaction / Comment(s): Son wakes up during surgery. Date of Last Stent Placement:: 08/2020 Past Psychological History: No Psychological Hx Reported Smoking Status: Never smoker - Past Family History Father Family Medical History: Cancer Mother History Unknown: Yes Family Medical History: Cancer Brother(s) Family Medical History: Cancer General Exam Limitations: no limitations General appearance: alert, in no apparent distress Head exam: Present: atraumatic, normocephalic Eye exam: Present: normal appearance Respiratory exam: Present: normal lung sounds bilaterally. Absent: respiratory distress, wheezes, rales, rhonchi, stridor Cardiovascular Exam: Present: regular rate, normal rhythm, normal heart sounds. Absent: systolic murmur, diastolic murmur, rubs, gallop GI/Abdominal exam: Present: soft. Absent: tenderness Neurological exam: Present: alert Skin exam: Present: warm, dry, intact, normal color. Absent: rash Course Vital Signs 06/06/22 15:06 Temperature 98.7 F Pulse Rate 78 Respiratory 20 Rate Blood Pressure 143/77 O2 Sat by Pulse 97 Oximetry Medical Decision Making - Lab Data Lab Results 06/06/22 Range/Units 15:19 Coronavirus (PCR) Detected A (Not Detectd) Disposition Clinical Impression: COVID-19 Disposition: HOME SELF-CARE Condition: Good Instructions (If sedation given, give patient instructions): COVID-19 (Coronavirus Disease 2019) (ED) Is patient prescribed a controlled substance at d/c from ED?: No Referrals: None,Stated [Primary Care Provider] - 1-2 days
[2022-06-06 16:29] VITALS: BP 129/78; PULSE 84; RESP 16; TEMP 98.2
== END 2022-06-06 16:27 | disposition home or self-care (01) ==
LOC: EC 14:49
DX: U07.1 COVID-19 (principal); I25.10 Atherosclerotic heart disease of native coronary artery without angina pectoris; Z86.73 Personal history of transient ischemic attack (TIA), and cerebral infarction without residual deficits; E78.5 Hyperlipidemia, unspecified; I10 Essential (primary) hypertension; M19.90 Unspecified osteoarthritis, unspecified site; E07.9 Disorder of thyroid, unspecified; Z79.82 Long term (current) use of aspirin; Z79.899 Other long term (current) drug therapy
CPT/HCPCS: 71046; 87502; 87635; 99283

== ENCOUNTER 2023-02-25 14:58 | Emergency (ER) | payer MEDICARE ==
--- NOTE | 2023-02-25 18:03 | ED ---
General Adult HPI - General Source: patient Mode of arrival: ambulatory Limitations: no limitations <Johny Alvarenga - Last Filed: 02/25/23 18:02> - General Source: RN notes reviewed <Vania Acevedo - Last Filed: 02/26/23 03:33> - General Chief complaint: Headache Stated complaint: weakness,swelling of head - History of Present Illness Initial comments: 87-year-old female presented to the ED with a chief complaint of headache. Patient states is been intermittent for the past year however recently has been increasing in frequency. (Johny Alvarenga) Quick note reviewed: This is an 87-year-old female with a past medical history significant for hypertension and medical noncompliance who presents to the emergency department with a chief complaint of a headache. Patient reports that she has had a left-sided headache that occurs on and off for the past year. She reports that it is worsening in frequency. She reports that she feels like her restorationist will "swollen. "She denies any dizziness, lightheadedness, vision changes, vision loss, nausea, vomiting. She does not take anything for his symptoms. (Vania Acevedo) - Related Data Home Medications Medication Instructions Recorded Confirmed Cetirizine HCl [Zyrtec] 10 mg PO HS 08/01/20 02/25/23 Vit C/E/Zn/Coppr/Lutein/Zeaxan 1 cap PO BID 08/01/20 02/25/23 [Preservision Areds 2 Softgel] Multivit-Min/FA/Lycopen/Lutein 1 tab PO HS 09/07/20 02/25/23 [Centrum Silver Tablet] Aspirin EC [Ecotrin Low Dose] 81 mg PO HS 08/28/21 02/25/23 Artificial Tears-Hypromellose 1 drops BOTH EYES QID PRN 09/07/21 02/25/23 [Artificial Tear Drops] Previous Rx's Medication Instructions Recorded amLODIPine [Norvasc] 5 mg PO DAILY #30 tab 02/26/23 Allergies Allergy/AdvReac Type Severity Reaction Status Date / Time No Known Allergies Allergy Verified 02/25/23 21:52 Review of Systems ROS Other: All systems not noted in ROS Statement are negative. <Johny Alvarenga - Last Filed: 02/25/23 18:02> ROS Other: All systems not noted in ROS Statement are negative. <Vania Acevedo - Last Filed: 02/26/23 03:33> ROS Statement: Those systems with pertinent positive or pertinent negative responses have been documented in the HPI. Past Medical History Past Medical History: Coronary Artery Disease (CAD), Cancer, CVA/TIA, Eye Disorder, Hyperlipidemia, Hypertension, Musculoskeletal Disorder, Osteoarthritis (OA), Thyroid Disorder Additional Past Medical History / Comment(s): Hx poss mild CVA. Glaucoma, breast cancer 1994-had surg & chemo. Bruises easily. Varicose veins, occ edema BLE. History of Any Multi-Drug Resistant Organisms: None Reported Past Surgical History: Breast Surgery, Heart Catheterization With Stent, Hysterectomy Additional Past Surgical History / Comment(s): Right mastectomy. PTCA w/ 2 stents. ORIF Lt arm Past Anesthesia/Blood Transfusion Reactions: No Reported Reaction, Family History of Problems w/ Anesthesia Additional Past Anesthesia/Blood Transfusion Reaction / Comment(s): Son wakes up during surgery. Date of Last Stent Placement:: 08/2020 Past Psychological History: No Psychological Hx Reported Smoking Status: Never smoker Past Alcohol Use History: None Reported Past Drug Use History: None Reported - Past Family History Father Family Medical History: Cancer Mother History Unknown: Yes Family Medical History: Cancer Brother(s) Family Medical History: Cancer <Johny Alvarenga - Last Filed: 02/25/23 18:02> General Exam Limitations: no limitations Respiratory exam: Present: normal lung sounds bilaterally Cardiovascular Exam: Present: regular rate, normal rhythm Neurological exam: Present: alert, oriented X3 Skin exam: Present: warm, dry <Johny Alvarenga - Last Filed: 02/25/23 18:02> <Vania Acevedo - Last Filed: 02/26/23 03:33> - General Exam Comments Initial Comments: General: Alert, in no acute distress Head: atraumatic normocephalic. Eyes PERRL, EOMI intact, mucous membranes moist Respiratory: Lungs clear to auscultation bilaterally Cardiovascular: Heart rate regular rate and rhythm Abdominal: Soft without guarding or rebound Extremities: Normal inspection with full range of motion and normal capillary refill Neuroogic: alert and oriented 3, CN II-XII intact, able to ambulate with steady gait Skin: warm dry and intact with normal color (Vania Acevedo) Course <Vania Acevedo - Last Filed: 02/26/23 03:33> Vital Signs 02/25/23 02/25/23 02/25/23 15:02 18:39 23:20 Temperature 98.5 F 97.9 F Pulse Rate 61 52 L 71 Respiratory 20 18 18 Rate Blood Pressure 157/74 168/82 214/113 O2 Sat by Pulse 99 99 97 Oximetry 02/26/23 02/26/23 02/26/23 00:02 00:55 01:14 Temperature 98.2 F Pulse Rate 75 72 80 Respiratory 18 16 18 Rate Blood Pressure 249/125 194/77 176/71 O2 Sat by Pulse 95 97 Oximetry - Reevaluation(s) Reevaluation #1: 02/25/23 22:15 patient reevaluated in the ER bed 9. Patient reports that those symptoms and is rating her headache this before. Patient does not want Benadryl this time. (Vania Acevedo) Reevaluation #2: 02/25/23 23:35 should reevaluated. Updated on laboratory results. Blood pressure is reading the 200s over 120s. Patient given hydralazine. Patient verbalizing that she was like to be discharged home at this time. (Vania Acevedo) Medical Decision Making - Lab Data Result diagrams: 02/25/23 22:02 02/25/23 22:02 <Vania Acevedo - Last Filed: 02/26/23 03:33> - Medical Decision Making Was pt. sent in by a medical professional or institution (Dr. PA, LINE UP EXAMINER, urgent care, hospital, or skilled nursing...) When possible be specific @ -[No] Did you speak to anyone other than the patient for history (EMS, parent, family, police, friend...)? What history was obtained from this source @ -[No] Did you review nursing and triage notes (agree or disagree)? Why? @ -[I reviewed and agree with nursing and triage notes] Were old charts reviewed (outside hosp., previous admission, EMS record, old EKG, old radiological studies, urgent care reports/EKG's, skilled nursing records)? Report findings @ -[No old charts were reviewed] Differential Diagnosis (chest pain, altered mental status, abdominal pain women, abdominal pain men, vaginal bleeding, weakness, fever, dyspnea, syncope, headache, dizziness, GI bleed, back pain, seizure, CVA, palpatations, mental health, musculoskeletal)? @ -[not applicable] EKG interpreted by me (3pts min.). @ -[As above] X-rays interpreted by me (1pt min.). @ -[None done] CT interpreted by me (1pt min.). @ -CT head and neck negative for any intracranial process U/S interpreted by me (1pt. min.). @ -[None done] What testing was considered but not performed or refused? (CT, X-rays, U/S, labs)? Why? @ -[None] What meds were considered but not given or refused? Why? @ -[None] Did you discuss the management of the patient with other professionals (professionals i.e. , PA, LINE UP EXAMINER, lab, RT, psych nurse, social services analyst, art educator, teacher, principal gifts officer, disease case manager)? Give summary @ -[No] Was smoking cessation discussed for >3mins.? @ -[No] Was critical care preformed (if so, how long)? @ -[No] Were there social determinants of health that impacted care today? How? (Homelessness, low income, unemployed, alcoholism, drug addiction, transportation, low edu. Level, literacy, decrease access to med. care, [facility], rehab)? @ -[No] Was there de-escalation of care discussed even if they declined (Discuss DNR or withdrawal of care, Hospice)? DNR status @ -[No] What co-morbidities impacted this encounter? (DM, HTN, Smoking, COPD, CAD, Cancer, CVA, ARF, Chemo, Hep., AIDS, mental health diagnosis, sleep apnea, morbid obesity)? @ -[None] Was patient admitted / discharged? Hospital course, mention meds given and route, prescriptions, significant lab abnormalities, going to OR and other pertinent info. @ -Discharged. This is an 87-year-old female who presents to the emergency department with chief complaint of headache. Patient had a thorough history and physical performed. Physical exam is essentially unremarkable. Heart rate regular rate and rhythm, lungs clear to auscultation auscultation bilaterally, abdomen soft and nontender. No focal neurodeficits the physical exam. Patient able to with a steady gait move all extremities freely. Patient had lab work and imaging performed which were essentially unremarkable. I discussed the results in detail with the patient who verbalized understanding all questions were addressed. She was given 10 mg of hydralazine with symptomatically relief of blood pressure. She denies any headache while in the emergency department. She will be given a prescription for Norvasc. Return precautions were discussed at length. Patient discharged in stable condition. Case discussed with PHOENIX Solano who agrees with plan of care Undiagnosed new problem with uncertain prognosis? @ -[No] Drug Therapy requiring intensive monitoring for toxicity (Heparin, Nitro, Insulin, Cardizem)? @ -[No] Were any procedures done? @ -[No] Diagnosis/symptom? @ -Headache Acute, or Chronic, or Acute on Chronic? @ -acute Uncomplicated (without systemic symptoms) or Complicated (systemic symptoms)? @ -Uncomplicated Side effects of treatment? @ -[No] Exacerbation, Progression, or Severe Exacerbation? @ -[No] Poses a threat to life or bodily function? How? (Chest pain, USA, MD, pneumonia, PE, COPD, DKA, ARF, appy, cholecystitis, CVA, Diverticulitis, Homicidal, Suicidal, threat to staff... and all critical care pts) @ -Low Likelihood (Vania Acevedo) - Lab Data Lab Results 02/25/23 02/25/23 Range/Units 22:02 22:02 WBC 9.0 (3.8-10.6) k/uL RBC 5.11 (3.80-5.40) m/uL Hgb 14.6 (11.4-16.0) gm/dL Hct 45.2 (34.0-46.0) % MCV 88.5 (80.0-100.0) fL MCH 28.6 (25.0-35.0) pg MCHC 32.3 (31.0-37.0) g/dL RDW 14.0 (11.5-15.5) % Plt Count 301 (150-450) k/uL MPV 8.6 Neutrophils % 62 % Lymphocytes % 23 % Monocytes % 8 % Eosinophils % 4 % Basophils % 0 % Neutrophils # 5.6 (1.3-7.7) k/uL Lymphocytes # 2.1 (1.0-4.8) k/uL Monocytes # 0.7 (0-1.0) k/uL Eosinophils # 0.3 (0-0.7) k/uL Basophils # 0.0 (0-0.2) k/uL ESR 6 (0-20) mm/hr Sodium 141 (137-145) mmol/L Potassium 4.0 (3.5-5.1) mmol/L Chloride 111 H (98-107) mmol/L Carbon Dioxide 26 (22-30) mmol/L Anion Gap 4 mmol/L BUN 17 (7-17) mg/dL Creatinine 0.83 (0.52-1.04) mg/dL Est GFR (CKD-EPI)AfAm 75 (>60 ml/min/1.73 sqM) Est GFR (CKD-EPI)NonAf 65 (>60 ml/min/1.73 sqM) Glucose 89 (74-99) mg/dL Calcium 8.7 (8.4-10.2) mg/dL Total Bilirubin 0.5 (0.2-1.3) mg/dL AST 38 H (14-36) U/L ALT 27 (4-34) U/L Alkaline Phosphatase 71 (38-126) U/L C-Reactive Protein <0.5 (<1.0) mg/dL Total Protein 6.6 (6.3-8.2) g/dL Albumin 3.7 (3.5-5.0) g/dL Disposition <Johny Alvarenga - Last Filed: 02/25/23 18:02> Is patient prescribed a controlled substance at d/c from ED?: No Time of Disposition: 23:51 <Vania Acevedo - Last Filed: 02/26/23 03:33> Clinical Impression: Head ache Disposition: HOME SELF-CARE Condition: Stable Instructions (If sedation given, give patient instructions): Acute Headache (ED) Additional Instructions: Please return to the nearest emergency department if symptoms worsen or persist Prescriptions: amLODIPine [Norvasc] 5 mg PO DAILY #30 tab Referrals: None,Stated [REFERRING] - 1-2 days
--- NOTE | 2023-02-25 21:49 | CT ---
EXAMINATION TYPE: CT brain cspine wo con CT DLP: 1269.8 mGycm, Automated exposure control for dose reduction was used. DATE OF EXAM: 02/25/2023 8:12 PM COMPARISON: CT brain 11/08/2017. CLINICAL INDICATION:Female, 87 years old with history of [place]; severe headache TECHNIQUE: Brain: Multiple axial CT images of the brain were obtained without IV contrast. Cspine: Axial CT images from the skull base to the inferior aspect of T2 we obtained without intraven ous contrast. Coronal and sagittal reformatted images were also reviewed. FINDINGS: Brain: Extra-axial spaces: No abnormal extra-axial fluid collections. Ventricular system: Dilatation in proportion to cerebral atrophy. Cerebral parenchyma: Cerebral atrophy. No acute intraparenchymal hemorrhage or mass effect. The marnie osman of the aviles-white junctions are well differentiated. Scattered hypoattenuating areas are seen w ithin the white matter. Cerebellum: Unremarkable. Mass effect: No evidence of midline shift. Intracranial vasculature: Atherosclerotic calcifications of the intracranial vessels. Soft tissues: Normal. Calvarium/osseous structures: No depressed skull fracture. Paranasal sinuses and mastoid air cells: Clear.Mastoid air cells are Clear Visualized orbits: Bilateral aphakia Cervical spine: Fracture: None. Osseous structures: Multilevel degenerative disc disease changes with endplate spurring and disc oste ophyte complex's. Multilevel uncovertebral and facet hypertrophy, predominantly pronounced within the lower cervical levels. Vertebral alignment: Within normal limits. Spinal canal/Neural Foramina: No evidence of significant spinal canal narrowing. Facet joint uncovert ebral joint arthropathy scattered throughout the cervical spine with varying degrees of neural forami nal stenosis. Neck soft tissues: Prevertebral soft tissues are within normal limits. Other: The airway is patent. The lung apices are clear. Enlarged right thyroid lobe with multiple hyp erdense nodules noted. IMPRESSION: 1. No acute intracranial process. 2. Nonspecific white matter changes which are likely related to chronic microangiopathy. 3. No evidence of cervical spine fracture. 4. multilevel degenerative disc disease. 5. Enlarged right thyroid lobe with multiple nodules. Consider dedicated thyroid ultrasound if clinic ally indicated.
[2023-02-25] MEDS ORDERED: SODIUM CHLORIDE 0.9% 1,000 ML IV ONE (22:04)
[2023-02-25] MEDS ORDERED: diphenhydrAMINE 50 MG/ML 1 ML VIAL IVP STA (22:12)
[2023-02-25] MEDS ORDERED: PROCHLORPERAZINE INJ 10 MG/2 ML VIAL IVP STA (22:12)
[2023-02-25] MEDS ORDERED: KETOROLAC 15 MG/ML 1 ML VIAL IVP STA (22:12)
[2023-02-25 22:44] LABS: ALT 27 U/L (4-34); AST 38 U/L (14-36); African American GFR (CKD) 75 (>60 ml/min/1.73 sqM); Albumin 3.7 g/dL (3.5-5.0); Alkaline Phosphatase 71 U/L (38-126); Anion Gap 4 mmol/L; Blood Urea Nitrogen 17 mg/dL (7-17); C Reactive Protein <0.5 mg/dL (<1.0); Calcium 8.7 mg/dL (8.4-10.2); Carbon Dioxide 26 mmol/L (22-30); Chloride 111 mmol/L (98-107); Glucose 89 mg/dL (74-99); Non-African American GFR(CKD) 65 (>60 ml/min/1.73 sqM); Sodium 141 mmol/L (137-145); Total Bilirubin 0.5 mg/dL (0.2-1.3); Total Protein 6.6 g/dL (6.3-8.2)
[2023-02-25 22:50] LABS: Basophils % (A) 0 %; Eosinophils # (A) 0.3 k/uL (0-0.7); Eosinophils % (A) 4 %; HCT 45.2 % (34.0-46.0); HGB 14.6 gm/dL (11.4-16.0); Lymphocytes # (A) 2.1 k/uL (1.0-4.8); Lymphocytes % (A) 23 %; MCH 28.6 pg (25.0-35.0); MCHC 32.3 g/dL (31.0-37.0); MCV 88.5 fL (80.0-100.0); Mean Platelet Volume 8.6; Monocytes # (A) 0.7 k/uL (0-1.0); Monocytes % (A) 8 %; Neutrophils # (A) 5.6 k/uL (1.3-7.7); Neutrophils % (A) 62 %; Platelet Count 301 k/uL (150-450); RBC 5.11 m/uL (3.80-5.40)
[2023-02-25 23:45] LABS: Erythrocyte Sedimentation Rate 6 mm/hr (0-20)
[2023-02-26] MEDS ORDERED: hydrALAZINE HCL 20 MG/ML 1 ML VIAL IVP STA (00:05)
[2023-02-26 01:15] VITALS: BP 176/71; PULSE 80; RESP 18; TEMP 98.2
== END 2023-02-26 01:14 | disposition home or self-care (01) ==
LOC: EC 14:58
DX: R51.9 Headache, unspecified (principal); I25.10 Atherosclerotic heart disease of native coronary artery without angina pectoris; I10 Essential (primary) hypertension; M19.90 Unspecified osteoarthritis, unspecified site; Z79.1 Long term (current) use of non-steroidal anti-inflammatories (NSAID); Z86.73 Personal history of transient ischemic attack (TIA), and cerebral infarction without residual deficits; Z79.82 Long term (current) use of aspirin; Z79.899 Other long term (current) drug therapy
CPT/HCPCS: 36415; 80053; 85652; 85025; 86140; 72125; 70450; 99284; 96374; 96375; 96361; J1885

== ENCOUNTER 2023-08-15 09:05 | Emergency (ER) | payer MEDICARE ==
--- NOTE | 2023-08-15 12:13 | ED ---
General Adult HPI - General Chief complaint: Upper Respiratory Infection Stated complaint: weakness/sick Time Seen by Provider: 08/15/23 11:31 Source: patient Mode of arrival: ambulatory Limitations: no limitations - History of Present Illness Initial comments: 88-year-old female presenting to the ED with a chief complaint of myalgias. Patient states for the past 2 days has had myalgias, cough, congestion, fever, and generalized fatigue. No chest pain or shortness of breath. No other complaints. - Related Data Home Medications Medication Instructions Recorded Confirmed Cetirizine HCl [Zyrtec] 10 mg PO HS 08/01/20 02/25/23 Vit C/E/Zn/Coppr/Lutein/Zeaxan 1 cap PO BID 08/01/20 02/25/23 [Preservision Areds 2 Softgel] Multivit-Min/FA/Lycopen/Lutein 1 tab PO HS 09/07/20 02/25/23 [Centrum Silver Tablet] Aspirin EC [Ecotrin Low Dose] 81 mg PO HS 08/28/21 02/25/23 Artificial Tears-Hypromellose 1 drops BOTH EYES QID PRN 09/07/21 02/25/23 [Artificial Tear Drops] Previous Rx's Medication Instructions Recorded amLODIPine [Norvasc] 5 mg PO DAILY #30 tab 02/26/23 Nirmatrelvir/Ritonavir [Paxlovid See Rx Instructions .ROUTE 03/10/23 2X150 mg-100 mg (Eua)] .COMPLEX #30 tab Oseltamivir [Tamiflu] 75 mg PO Q12HR #10 cap 08/15/23 Allergies Allergy/AdvReac Type Severity Reaction Status Date / Time No Known Allergies Allergy Verified 08/15/23 09:50 Review of Systems ROS Statement: Those systems with pertinent positive or pertinent negative responses have been documented in the HPI. ROS Other: All systems not noted in ROS Statement are negative. Past Medical History Past Medical History: Coronary Artery Disease (CAD), Cancer, CVA/TIA, Eye Disorder, Hyperlipidemia, Hypertension, Musculoskeletal Disorder, Osteoarthritis (OA), Thyroid Disorder Additional Past Medical History / Comment(s): Hx poss mild CVA. Glaucoma, breast cancer 1994-had surg & chemo. Bruises easily. Varicose veins, occ edema BLE. History of Any Multi-Drug Resistant Organisms: None Reported Past Surgical History: Breast Surgery, Heart Catheterization With Stent, Hysterectomy Additional Past Surgical History / Comment(s): Right mastectomy. PTCA w/ 2 stents. ORIF Lt arm Past Anesthesia/Blood Transfusion Reactions: No Reported Reaction, Family History of Problems w/ Anesthesia Additional Past Anesthesia/Blood Transfusion Reaction / Comment(s): Son wakes up during surgery. Date of Last Stent Placement:: 08/2020 Past Psychological History: No Psychological Hx Reported Smoking Status: Never smoker Past Alcohol Use History: None Reported Past Drug Use History: None Reported - Past Family History Father Family Medical History: Cancer Mother History Unknown: Yes Family Medical History: Cancer Brother(s) Family Medical History: Cancer General Exam Limitations: no limitations General appearance: alert, in no apparent distress Eye exam: Present: normal appearance Neck exam: Present: normal inspection Respiratory exam: Present: normal lung sounds bilaterally Cardiovascular Exam: Present: regular rate, normal rhythm GI/Abdominal exam: Present: soft Neurological exam: Present: alert, oriented X3 Skin exam: Present: warm, dry Course Vital Signs 08/15/23 09:48 Temperature 98 F Pulse Rate 75 Respiratory 18 Rate Blood Pressure 148/84 O2 Sat by Pulse 97 Oximetry Medical Decision Making - Medical Decision Making Was pt. sent in by a medical professional or institution (, PA, REMEDIATION TECHNICIAN, urgent care, hospital, or retirement...) When possible be specific @ -No Did you speak to anyone other than the patient for history (EMS, parent, family, police, friend...)? What history was obtained from this source @ -No Did you review nursing and triage notes (agree or disagree)? Why? @ -I reviewed and agree with nursing and triage notes Were old charts reviewed (outside hosp., previous admission, EMS record, old EKG, old radiological studies, urgent care reports/EKG's, retirement records)? Report findings @ -No old charts were reviewed Differential Diagnosis (chest pain, altered mental status, abdominal pain women, abdominal pain men, vaginal bleeding, weakness, fever, dyspnea, syncope, headache, dizziness, GI bleed, back pain, seizure, CVA, palpatations, mental health, musculoskeletal)? @ -Differential Fever: Pneumonia, viral URI, endocarditis, myocarditis, pericarditis, otitis, sinusitis, peritonsillar Abscess, retropharyngeal Abscess, epiglottitis, peritonitis, appendicitis, Sofya cystitis, diverticulitis, hepatitis, colitis, UTI, PID, TOA, pyelonephritis, prostatitis, epididymitis, meningitis, encephalitis, pulmonary embolism, CVA, thyroid storm, pancreatitis, adrenal crisis, cavernous sinus thrombosis, this is not meant to be an all-inclusive list. EKG interpreted by me (3pts min.). @ -None X-rays interpreted by me (1pt min.). @ -None done CT interpreted by me (1pt min.). @ -None done U/S interpreted by me (1pt. min.). @ -None done What testing was considered but not performed or refused? (CT, X-rays, U/S, labs)? Why? @ -None What meds were considered but not given or refused? Why? @ -None Did you discuss the management of the patient with other professionals (professionals i.e. , PA, REMEDIATION TECHNICIAN, lab, RT, psych nurse, social secretary, resin remover, teacher, immigration officer, oil field caser)? Give summary @ -No Was smoking cessation discussed for >3mins.? @ -No Was critical care preformed (if so, how long)? @ -No Were there social determinants of health that impacted care today? How? (Homelessness, low income, unemployed, alcoholism, drug addiction, transportation, low edu. Level, literacy, decrease access to med. care, fdc, rehab)? @ -No Was there de-escalation of care discussed even if they declined (Discuss DNR or withdrawal of care, Hospice)? DNR status @ -No What co-morbidities impacted this encounter? (DM, HTN, Smoking, COPD, CAD, Cancer, CVA, ARF, Chemo, Hep., AIDS, mental health diagnosis, sleep apnea, morbid obesity)? @ -None Was patient admitted / discharged? Hospital course, mention meds given and route, prescriptions, significant lab abnormalities, going to OR and other pertinent info. @ -Discharge 88 year old female presents to the ED secondary to complaints of myalgias, cough, congestion, generalized fatigue. Serology shows influenza A positive. At this time vital signs stable afebrile. Provided prescription for Tamiflu. Discharged home in stable condition. Discussed strict return precautions with patient who verbalizes agreement. Undiagnosed new problem with uncertain prognosis? @ -No Drug Therapy requiring intensive monitoring for toxicity (Heparin, Nitro, Insulin, Cardizem)? @ -No Were any procedures done? @ -No Diagnosis/symptom? @ -Influenza A Acute, or Chronic, or Acute on Chronic? @ -Acute Uncomplicated (without systemic symptoms) or Complicated (systemic symptoms)? @ -Uncomplicated Side effects of treatment? @ -No Exacerbation, Progression, or Severe Exacerbation? @ -No Poses a threat to life or bodily function? How? (Chest pain, USA, PA, pneumonia, PE, COPD, DKA, ARF, appy, cholecystitis, CVA, Diverticulitis, Homicidal, Suicidal, threat to staff... and all critical care pts) @ -No - Lab Data Lab Results 08/15/23 Range/Units 09:52 Influenza Type A (PCR) Detected A (Not Detectd) Influenza Type B (PCR) Not Detected (Not Detectd) RSV (PCR) Not Detected (Not Detectd) SARS-CoV-2 (PCR) Not Detected (Not Detectd) Disposition Clinical Impression: Influenza Disposition: HOME SELF-CARE Condition: Good Instructions (If sedation given, give patient instructions): Influenza (DC) Additional Instructions: Please return to the Emergency Department if symptoms worsen or any other concerns. Prescriptions: Oseltamivir [Tamiflu] 75 mg PO Q12HR #10 cap Is patient prescribed a controlled substance at d/c from ED?: No Referrals: Cb Ansari MD [Primary Care Provider] - 1-2 days Time of Disposition: 12:17
[2023-08-15 12:39] VITALS: BP 138/78; PULSE 79; RESP 16; TEMP 98.4
== END 2023-08-15 12:34 | disposition home or self-care (01) ==
LOC: EC 09:05
DX: J10.1 Influenza due to other identified influenza virus with other respiratory manifestations (principal); I25.10 Atherosclerotic heart disease of native coronary artery without angina pectoris; I10 Essential (primary) hypertension; M19.90 Unspecified osteoarthritis, unspecified site; Z79.82 Long term (current) use of aspirin; Z79.899 Other long term (current) drug therapy; Z20.822 Contact with and (suspected) exposure to COVID-19
CPT/HCPCS: 87636; 99284

== ENCOUNTER → 2023-08-15 | Outpatient (CLI) | payer MEDICARE ==
[2023-08-15 15:27] LABS: ALT 17 U/L (8-44); AST 29 U/L (13-35); Albumin 4.1 g/dL (3.8-4.9); Albumin/Globulin Ratio 1.71 Ratio (1.60-3.17); Alkaline Phosphatase 83 U/L (41-126); BUN/Creat Ratio 18.75 Ratio (12.00-20.00); Calcium 9.6 mg/dL (8.7-10.3); Carbon Dioxide 23.9 mmol/L (21.6-31.8); Chloride 108 mmol/L (96-109); Chol/HDL Ratio 2.21 Ratio; Globulin 2.4 g/dL (1.6-3.3); Glucose 98 mg/dL (70-110); LDL Cholesterol,Calculated 62.9 mg/dL (0.0-131.0); Potassium 4.8 mmol/L (3.5-5.5); Sodium 143 mmol/L (135-145); Total Bilirubin 0.9 mg/dL (0.3-1.2); Total Protein 6.5 g/dL (6.2-8.2); VLDL Calculation 11.06 mg/dL (5.00-40.00)
== END | disposition home or self-care (01) ==
LOC: LABWHC1 08:33
PROVIDERS: ATTEND Internal Medicine Interventional Cardiology
DX: E78.2 Mixed hyperlipidemia (principal)
CPT/HCPCS: 36415; 80053; 80061

== ENCOUNTER → 2023-09-10 | Day surgery (SDC) | payer MEDICARE ==
[2023-09-04 12:11] VITALS: BMI 24.7
[~2023-09-10] MED LIST changes: +ACETAMINOPHEN TAB 500 MG TAB PO ONE; -ACETAMINOPHEN TAB 500 MG TAB PO PRN; +ALPRAZolam 0.25 MG TAB PO PRN; +ALPRAZolam 0.5 MG TAB PO PRN; +ASPIRIN 325 MG TAB PO STA; +ASPIRIN 81 MG PO SCH; +ATORVASTATIN 40 MG TAB PO SCH; +ATORVASTATIN 80 MG TAB PO STA; -DEXAMETHASONE SOD PHOSPHATE 4 MG/ML 1 ML VIAL IV ONE; +HEPARIN SODIUM 1,000 UN/ML (10ML VL) IV ONE; +HEPARIN SODIUM,PORCINE (1 ML) 2,500 UNIT in SODIUM CHLORIDE 0.9% 250 ML IRRIGATION PRN; +HEPARIN SODIUM,PORCINE 10,000 UNIT in SODIUM CHLORIDE 0.9% 1,000 ML IRRIGATION PRN; -HEPARIN SODIUM,PORCINE/PF 5,000 UNIT/0.5 ML SYRINGE SQ PRN; -HYDROmorphone 0.5 MG/0.5 ML SYRINGE IVP PRN; +IOPAMIDOL-370 100ML BTL INJ ONE; -LACTATED RINGERS 1,000 ML IV SCH; -LIDOCAINE 1% (10MG/ML) FOR IV START INTRADERMA PRN; +LIDOCAINE 1% INJ 10MG/ML (20 ML MDV) ONE; +LIDOCAINE 1% INJ 10MG/ML (5 ML VIAL-PF) SQ ONE; +MIDAZOLAM 2 MG/2 ML VIAL IVP ONE; +NITROGLYCERIN SL TABS 0.4 MG TAB SUBLINGUAL ONE; +NITROGLYCERIN SL TABS 0.4 MG TAB SUBLINGUAL PRN; -ONDANSETRON 4 MG/2 ML VIAL IVP ONE; +RX INFO: IV CONTRAST WAS GIVEN 1 EACH MISC MISCELLANE PRN; +SODIUM CHLORIDE 0.9% 1,000 ML IV ONE; +SODIUM CHLORIDE 0.9% 1,000 ML IV SCH; +SODIUM CHLORIDE 0.9% 1,000 ML in EMPTY BAG 1 BAG IV SCH; +VERAPAMIL SYRINGE (5 MG/10 ML) INTRAARTER ONE; +amLODIPine 5 MG TAB ONE; +amLODIPine 5 MG TAB PO SCH; +fentaNYL (PF) 50 MCG/1 ML VIAL IVP ONE; +fentaNYL (PF) 50 MCG/ML 2 ML AMP ONE; +lisinopriL 10 MG TAB PO SCH
[2023-09-10 07:50] VITALS: RESP 16; TEMP 97.9
[2023-09-10 07:51] LABS: Basophils % (A) 0 %; Eosinophils # (A) 0.3 k/uL (0-0.7); Eosinophils % (A) 3 %; HCT 41.8 % (34.0-46.0); HGB 13.9 gm/dL (11.4-16.0); Lymphocytes # (A) 1.6 k/uL (1.0-4.8); Lymphocytes % (A) 18 %; MCH 29.7 pg (25.0-35.0); MCHC 33.3 g/dL (31.0-37.0); Mean Platelet Volume 8.1; Monocytes # (A) 0.7 k/uL (0-1.0); Monocytes % (A) 8 %; Neutrophils # (A) 6.2 k/uL (1.3-7.7); Neutrophils % (A) 69 %; Platelet Count 274 k/uL (150-450); RDW 13.7 % (11.5-15.5)
[2023-09-10 08:30] LABS: African American GFR (CKD) >90 (>60 ml/min/1.73 sqM); Anion Gap 6 mmol/L; Blood Urea Nitrogen 23 mg/dL (7-17); Calcium 9.2 mg/dL (8.4-10.2); Carbon Dioxide 23 mmol/L (22-30); Chloride 111 mmol/L (98-107); Glucose 96 mg/dL (74-99); Non-African American GFR(CKD) 79 (>60 ml/min/1.73 sqM); Potassium 4.3 mmol/L (3.5-5.1); Sodium 140 mmol/L (137-145)
--- NOTE | 2023-09-10 10:06 | P.CARDCATH ---
Date of Procedure: 09/10/23 Description of Procedure: Cardiac Catheterization: The patient is an 88-year-old female with a known history of CAD, status post stenting of the LAD and the RCA in August 2020, history of hypertension and hyperlipidemia who has been complaining of chest discomfort and had an abnormal MPI. Recommendations were made regarding cardiac catheterization, the risks and the complications were discussed with the patient who is in full understanding and agreement. Procedure Description: Patient was brought to cathode ray tube assembler in fasting semi-sedated state after receiving Fentanyl and Benadryl achieiving moderate conscious sedated state. Using Xylocaine Anesthesia and modified Seldinger technique, a 6-Egyptian sheath was introduced in the right radial artery . Subsequently, selective coronary angiography was performed using a 5-Egyptian 3.5 bend left Yaquelin and 5 bend right Yaquelin catheter. Multiple views of the coronary artery including hemiaxial views were obtained. The right Yaquelin catheter was used to cross the aortic valve and LVEDP was calculated. Following that, catheter and sheath were removed. Hemostasis was obtained with deployment of vascular band . There was no immediate complication. Patient was returned to room in stable condition. Of note, the patient received a total of 3000 units of intravenous heparin as well as intra-arterial verapamil. Findings: Left main: This is a short size vessel, bifurcating into LAD and left circumflex, left main has no obstructive disease LAD: This is a large size vessel, reaching to the apex, tortuous in the mid segment. The stented segment in the proximal LAD is patent with 10% stenosis prior to the stent. Distal to the stent after the takeoff of the diagonal branch there is a 40% plaque, the rest of the vessel has no high-grade stenosis Left circumflex: This is a codominant vessel, large in caliber giving rise to 3 obtuse marginal branch. The left circumflex has mild intimal disease with no high-grade stenosis RCA: This is a codominant vessel, bifurcating distally to PDA and PLV. The ostium of the RCA has a 50% plaque that was noted in the past the stented segment is patent with no evidence of in-stent restenosis Left Ventriculogram: Not performed Hemodynamics: There was no gradient across aortic valve, LVEDP was 20-25 mmHg Conclusion: 1. Patent stent in the LAD and the RCA 2. Moderate disease at the ostium of the right coronary artery with no progression since August 2020 3. Mild disease in the LAD distal to the stent 4. Mild disease in the left circumflex Recommendations: I have recommended to continue medical therapy with the aggressive coronary risks modifications that have been initiated. The findings and the recommendations were discussed with the patient and the family and they were in full understanding and agreement. Duration of sedation is 43 minutes.
[2023-09-10 15:03] VITALS: BP 151/67; PULSE 63
== END | disposition home or self-care (01) ==
LOC: CATHCVL 07:05
PROVIDERS: ATTEND Internal Medicine Interventional Cardiology
DX: I25.10 Atherosclerotic heart disease of native coronary artery without angina pectoris (principal); I10 Essential (primary) hypertension; E78.5 Hyperlipidemia, unspecified; E07.9 Disorder of thyroid, unspecified; Z95.5 Presence of coronary angioplasty implant and graft; Z79.82 Long term (current) use of aspirin; Z79.51 Long term (current) use of inhaled steroids; Z79.899 Other long term (current) drug therapy; Z87.891 Personal history of nicotine dependence
CPT/HCPCS: 93458; 80048; 85025; 99152; 99153 ×2; C1769 ×3; C1894; J2250; J2001; J1644; Q9967; J3010

== ENCOUNTER 2023-10-29 19:31 | Emergency (ER) | payer MEDICARE ==
[2023-10-29 20:00] VITALS: BP 177/82; PULSE 66; RESP 18; TEMP 98
--- NOTE | 2023-10-29 20:16 | ED ---
General Adult HPI - General Chief complaint: ENT Stated complaint: Left Ear laceration Time Seen by Provider: 10/29/23 19:43 Source: patient Mode of arrival: ambulatory Limitations: no limitations - History of Present Illness Initial comments: 88-year-old female presenting with chief complaint of bleeding from the left pinna. Patient states that she wrapped her face and accidentally scratched her ear. She has had bleeding that she has not been able to control with pressure since about 230. She is not on any blood thinners. She is having no pain. No dizziness. - Related Data Home Medications Medication Instructions Recorded Confirmed Cetirizine HCl [Zyrtec] 10 mg PO HS 08/01/20 09/10/23 Vit C/E/Zn/Coppr/Lutein/Zeaxan 1 cap PO BID 08/01/20 09/10/23 [Preservision Areds 2 Softgel] Multivit-Min/FA/Lycopen/Lutein 1 tab PO HS 09/07/20 09/10/23 [Centrum Silver Tablet] Aspirin EC [Ecotrin Low Dose] 162 mg PO HS 08/28/21 09/10/23 Artificial Tears-Hypromellose 1 drops BOTH EYES QID PRN 09/07/21 09/10/23 [Artificial Tear Drops] Atorvastatin [Lipitor] 40 mg PO HS 09/10/23 09/10/23 lisinopriL [Zestril] 10 mg PO DAILY 09/10/23 09/10/23 Previous Rx's Medication Instructions Recorded amLODIPine [Norvasc] 5 mg PO DAILY #30 tab 02/26/23 Allergies Allergy/AdvReac Type Severity Reaction Status Date / Time No Known Allergies Allergy Verified 10/29/23 19:41 Review of Systems ROS Statement: Those systems with pertinent positive or pertinent negative responses have been documented in the HPI. ROS Other: All systems not noted in ROS Statement are negative. Past Medical History Past Medical History: Coronary Artery Disease (CAD), Cancer, Eye Disorder, Hyperlipidemia, Hypertension, Musculoskeletal Disorder, Osteoarthritis (OA), Thyroid Disorder Additional Past Medical History / Comment(s): Hx poss mild CVA. Glaucoma, breast cancer 1994-had surg & chemo. Bruises easily. Varicose veins, occ edema BLE. History of Any Multi-Drug Resistant Organisms: None Reported Past Surgical History: Breast Surgery, Heart Catheterization With Stent, Hysterectomy Additional Past Surgical History / Comment(s): Right mastectomy. PTCA w/ 2 stents. ORIF Lt arm Past Anesthesia/Blood Transfusion Reactions: No Reported Reaction, Family History of Problems w/ Anesthesia Additional Past Anesthesia/Blood Transfusion Reaction / Comment(s): Son wakes up during surgery. Date of Last Stent Placement:: 08/2020 Past Psychological History: No Psychological Hx Reported Smoking Status: Never smoker - Past Family History Father Family Medical History: Cancer Mother History Unknown: Yes Family Medical History: Cancer Brother(s) Family Medical History: Cancer General Exam Limitations: no limitations General appearance: alert, in no apparent distress Head exam: Present: atraumatic, normocephalic Eye exam: Present: normal appearance Expanded Ear exam: Present: other (Bleeding from the left auricle) Neck exam: Present: normal inspection Respiratory exam: Absent: respiratory distress Cardiovascular Exam: Present: regular rate Neurological exam: Present: alert, oriented X3 Psychiatric exam: Present: normal affect, normal mood Course Vital Signs 10/29/23 19:39 Temperature 98 F Pulse Rate 66 Respiratory 18 Rate Blood Pressure 177/82 O2 Sat by Pulse 99 Oximetry Medical Decision Making - Medical Decision Making Was pt. sent in by a medical professional or institution (, PA, ACETYLENE OPERATOR, urgent care, hospital, or prison...) When possible be specific @ -No Did you speak to anyone other than the patient for history (EMS, parent, family, police, friend...)? What history was obtained from this source @ -No Did you review nursing and triage notes (agree or disagree)? Why? @ -I reviewed and agree with nursing and triage notes Were old charts reviewed (outside hosp., previous admission, EMS record, old EKG, old radiological studies, urgent care reports/EKG's, prison records)? Report findings @ -No old charts were reviewed Differential Diagnosis (chest pain, altered mental status, abdominal pain women, abdominal pain men, vaginal bleeding, weakness, fever, dyspnea, syncope, headache, dizziness, GI bleed, back pain, seizure, CVA, palpatations, mental health, musculoskeletal)? @ -Differential includes laceration, abrasion, lesion, this is not an all- inclusive list EKG interpreted by me (3pts min.). @ -As above X-rays interpreted by me (1pt min.). @ -None done CT interpreted by me (1pt min.). @ -None done U/S interpreted by me (1pt. min.). @ -None done What testing was considered but not performed or refused? (CT, X-rays, U/S, labs)? Why? @ -None What meds were considered but not given or refused? Why? @ -None Did you discuss the management of the patient with other professionals (professionals i.e. DrBob, PA, ACETYLENE OPERATOR, lab, RT, psych nurse, social media analyst, mold holder, teacher, environmental health officer, manager case)? Give summary @ -No Was smoking cessation discussed for >3mins.? @ -No Was critical care preformed (if so, how long)? @ -No Were there social determinants of health that impacted care today? How? (Homelessness, low income, unemployed, alcoholism, drug addiction, transportation, low edu. Level, literacy, decrease access to med. care, longterm, rehab)? @ -No Was there de-escalation of care discussed even if they declined (Discuss DNR or withdrawal of care, Hospice)? DNR status @ -No What co-morbidities impacted this encounter? (DM, HTN, Smoking, COPD, CAD, Cancer, CVA, ARF, Chemo, Hep., AIDS, mental health diagnosis, sleep apnea, morbid obesity)? @ -None Was patient admitted / discharged? Hospital course, mention meds given and route, prescriptions, significant lab abnormalities, going to OR and other pertinent info. @ -88-year-old female presenting with chief complaint of bleeding from the left auricle. She states that she was rubbing her face and accidentally scratched her ear. This has been bleeding since 230. No blood thinners. On exam there appears to be a small skin tear to the pinna. Let solution is applied and after holding pressure Gelfoam was then applied. Patient is observed and has no recurrence of bleeding. Educated on wound care and discharged home. Follow-up with PCP. Report back to ER with any new or worsening symptoms. Discussed return parameters and answered all questions. Patient conveyed verbal understanding and agreed to the plan. I discussed this case in detail with my attending . Undiagnosed new problem with uncertain prognosis? @ -No Drug Therapy requiring intensive monitoring for toxicity (Heparin, Nitro, Insulin, Cardizem)? @ -No Were any procedures done? @ -No Diagnosis/symptom? @ -Skin tear Acute, or Chronic, or Acute on Chronic? @ -Acute Uncomplicated (without systemic symptoms) or Complicated (systemic symptoms)? @ -Uncomplicated Side effects of treatment? @ -No Exacerbation, Progression, or Severe Exacerbation? @ -No Poses a threat to life or bodily function? How? (Chest pain, USA, [place], pneumonia, PE, COPD, DKA, ARF, appy, cholecystitis, CVA, Diverticulitis, Homicidal, Suicidal, threat to staff... and all critical care pts) @ -No Disposition Clinical Impression: Skin tear Disposition: HOME SELF-CARE Condition: Good Instructions (If sedation given, give patient instructions): Skin Tear (ED) Additional Instructions: Follow-up with PCP. Report back to ER with any new or worsening symptoms. Leave the ear covered with gauze until tomorrow morning. If the foam does not fall out after 3 days you may remove it then. Is patient prescribed a controlled substance at d/c from ED?: No Referrals: Cb Ansari MD [Primary Care Provider] - 1-2 days Time of Disposition: 20:55
[2023-10-29] MEDS: LIDOCAINE/EPINEPHR/TETRACAINE 5 ML BOTTLE TOPICAL ONE (21:00)
== END 2023-10-29 21:05 | disposition home or self-care (01) ==
LOC: EC 19:31
DX: S01.312A Laceration without foreign body of left ear, initial encounter (principal); Z95.5 Presence of coronary angioplasty implant and graft; W26.8XXA Contact with other sharp object(s), not elsewhere classified, initial encounter
CPT/HCPCS: 99282

== ENCOUNTER 2024-09-17 02:47 | Emergency (ER) | payer MEDICARE ==
[2024-09-17 02:52] VITALS: RESP 18
--- NOTE | 2024-09-17 03:12 | ED ---
Lower Extremity Injury HPI - General Source: patient, RN notes reviewed Mode of arrival: ambulatory - History of Present Illness MD Complaint: knee injury Onset/Timin -: hour(s) Injury: Knee: Right Place: home Severity scale (1-10): 8 Improves With: immobilization, rest Worsens With: weight bearing, movement, palpation <Rahat Jordan - Last Filed: 09/17/24 03:12> <Hamlet Boss - Last Filed: 09/17/24 05:11> - General Chief Complaint: Extremity Injury, Lower Stated Complaint: right knee pain Time Seen by Provider: 09/17/24 03:03 - History of Present Illness Initial Comments: This is an 89-year-old female presenting with sudden onset of right knee pain (03/28) x 1 hour ago. Patient states she awoke from bed to go to the bathroom when she experienced sudden onset right knee pain with weakness/"giving out" both at home and while walking to the ER in the hospital parking lot. Denies recent fall or known cause for knee pain. Denies use of blood thinners. (Rahat Jordan) - Related Data Home Medications Medication Instructions Recorded Confirmed Cetirizine HCl [Zyrtec] 10 mg PO HS 08/01/20 09/10/23 Vit C/E/Zn/Coppr/Lutein/Zeaxan 1 cap PO BID 08/01/20 09/10/23 [Preservision Areds 2 Softgel] Multivit-Min/FA/Lycopen/Lutein 1 tab PO HS 09/07/20 09/10/23 [Centrum Silver Tablet] Aspirin EC [Ecotrin Low Dose] 162 mg PO HS 08/28/21 09/10/23 Artificial Tears-Hypromellose 1 drops BOTH EYES QID PRN 09/07/21 09/10/23 [Artificial Tear Drops] Atorvastatin [Lipitor] 40 mg PO HS 09/10/23 09/10/23 lisinopriL [Zestril] 10 mg PO DAILY 09/10/23 09/10/23 Previous Rx's Medication Instructions Recorded amLODIPine [Norvasc] 5 mg PO DAILY #30 tab 02/26/23 Ibuprofen [Motrin] 600 mg PO Q8HR PRN #30 tab 09/17/24 Allergies Allergy/AdvReac Type Severity Reaction Status Date / Time No Known Allergies Allergy Verified 09/17/24 02:51 Review of Systems ROS Other: All systems not noted in ROS Statement are negative. <Rahat Jordan - Last Filed: 09/17/24 03:12> ROS Other: All systems not noted in ROS Statement are negative. <Hamlet Boss - Last Filed: 09/17/24 05:11> ROS Statement: Those systems with pertinent positive or pertinent negative responses have been documented in the HPI. Past Medical History Past Medical History: Coronary Artery Disease (CAD), Cancer, Eye Disorder, Hyperlipidemia, Hypertension, Musculoskeletal Disorder, Osteoarthritis (OA), Thyroid Disorder Additional Past Medical History / Comment(s): Hx poss mild CVA. Glaucoma, breast cancer 1994-had surg & chemo. Bruises easily. Varicose veins, occ edema BLE. History of Any Multi-Drug Resistant Organisms: None Reported Past Surgical History: Breast Surgery, Heart Catheterization With Stent, Hysterectomy Additional Past Surgical History / Comment(s): Right mastectomy. PTCA w/ 2 stents. ORIF Lt arm Past Anesthesia/Blood Transfusion Reactions: No Reported Reaction, Family History of Problems w/ Anesthesia Additional Past Anesthesia/Blood Transfusion Reaction / Comment(s): Son wakes up during surgery. Date of Last Stent Placement:: 08/2020 Past Psychological History: No Psychological Hx Reported Smoking Status: Never smoker - Past Family History Father Family Medical History: Cancer Mother History Unknown: Yes Family Medical History: Cancer Brother(s) Family Medical History: Cancer <Rahat Jordan - Last Filed: 09/17/24 03:12> General Exam General appearance: alert, in no apparent distress Head exam: Present: atraumatic, normocephalic, normal inspection Eye exam: Present: normal appearance, PERRL, EOMI. Absent: scleral icterus, conjunctival injection, periorbital swelling ENT exam: Present: normal exam, mucous membranes moist Neck exam: Present: normal inspection. Absent: tenderness, meningismus, lymphadenopathy Respiratory exam: Present: normal lung sounds bilaterally. Absent: respiratory distress, wheezes, rales, rhonchi, stridor Cardiovascular Exam: Present: regular rate, normal rhythm, normal heart sounds. Absent: systolic murmur, diastolic murmur, rubs, gallop, clicks GI/Abdominal exam: Present: soft, normal bowel sounds. Absent: distended, tenderness, guarding, rebound, rigid Extremities exam: Present: full ROM, tenderness (Positive diffuse tenderness with palpation), normal capillary refill, other (Negative Vernon's, varus/valgus. Patient notes some lateral knee pain with Solomon's test. Negative overlying erythema, warmth. Negative Paulson's cyst, Homans' sign. Posterior tibialis pulse +2). Absent: pedal edema, joint swelling, calf tenderness Back exam: Present: normal inspection Neurological exam: Present: alert, oriented X3, CN II-XII intact Psychiatric exam: Present: normal affect, normal mood Skin exam: Present: warm, dry, intact, normal color. Absent: rash <Rahat Jordan - Last Filed: 09/17/24 03:12> Course Vital Signs 09/17/24 02:48 Temperature 97.3 F L Pulse Rate 67 Respiratory 18 Rate Blood Pressure 152/83 O2 Sat by Pulse 96 Oximetry Medical Decision Making <Rahat Jordan - Last Filed: 09/17/24 03:12> - Medical Decision Making Was pt. sent in by a medical professional or institution (, PA, SEAM CHECKER, urgent care, hospital, or long-term...) When possible be specific @ -[No] Did you speak to anyone other than the patient for history (EMS, parent, family, police, friend...)? What history was obtained from this source @ -[No] Did you review nursing and triage notes (agree or disagree)? Why? @ -[I reviewed and agree with nursing and triage notes] Were old charts reviewed (outside hosp., previous admission, EMS record, old E KG, old radiological studies, urgent care reports/EKG's, long-term records)? Report findings @ -[No old charts were reviewed] Differential Diagnosis (chest pain, altered mental status, abdominal pain women, abdominal pain men, vaginal bleeding, weakness, fever, dyspnea, syncope, headache, dizziness, GI bleed, back pain, seizure, CVA, palpatations, mental health, musculoskeletal)? @ -Differential Musculoskeletal Muscular strain, contusion, ligament sprain, fracture, arthritis, septic arthritis, bursitis, cellulitis, muscle spasm, nerve compression, DVT, arterial occlusion, herpes zoster, electrolyte abnormality, tumor.... This is not meant to be in all inclusive list EKG interpreted by me (3pts min.). @ -Not done X-rays interpreted by me (1pt min.). @ -[None done] CT interpreted by me (1pt min.). @ -[None done] U/S interpreted by me (1pt. min.). @ -[None done] What testing was considered but not performed or refused? (CT, X-rays, U/S, labs)? Why? @ -[None] What meds were considered but not given or refused? Why? @ -[None] Did you discuss the management of the patient with other professionals (professionals i.e. , PA, SEAM CHECKER, lab, RT, psych nurse, social sciences chair, chopper gun operator, teacher, property and supply officer, case checker)? Give summary @ -[No] Was smoking cessation discussed for >3mins.? @ -[No] Was critical care preformed (if so, how long)? @ -[No] Were there social determinants of health that impacted care today? How? (Homelessness, low income, unemployed, alcoholism, drug addiction, transportation, low edu. Level, literacy, decrease access to med. care, retirement, rehab)? @ -[No] Was there de-escalation of care discussed even if they declined (Discuss DNR or withdrawal of care, Hospice)? DNR status @ -[No] What co-morbidities impacted this encounter? (DM, HTN, Smoking, COPD, CAD, Can cer, CVA, ARF, Chemo, Hep., AIDS, mental health diagnosis, sleep apnea, morbid obesity)? @ -[None] Was patient admitted / discharged? Hospital course, mention meds given and route, prescriptions, significant lab abnormalities, going to OR and other pertinent info. @ -[hospital course] Undiagnosed new problem with uncertain prognosis? @ -[No] Drug Therapy requiring intensive monitoring for toxicity (Heparin, Nitro, Insulin, Cardizem)? @ -[No] Were any procedures done? @ -[No] Diagnosis/symptom? @ -[default] Acute, or Chronic, or Acute on Chronic? @ -Acute Uncomplicated (without systemic symptoms) or Complicated (systemic symptoms)? @ -Uncomplicated Side effects of treatment? @ -[No] Exacerbation, Progression, or Severe Exacerbation? @ -[No] Poses a threat to life or bodily function? How? (Chest pain, [place], [place], pneumonia, PE, COPD, DKA, ARF, appy, cholecystitis, CVA, Diverticulitis, Homicidal, Suicidal, threat to staff... and all critical care pts) @ -[No] (Rahat Jordan) Disposition <Rahat Jordan - Last Filed: 09/17/24 03:12> Is patient prescribed a controlled substance at d/c from ED?: No <Hamlet Boss - Last Filed: 09/17/24 05:11> Clinical Impression: Knee pain Disposition: HOME SELF-CARE Condition: Good Instructions (If sedation given, give patient instructions): Knee Pain (ED) Prescriptions: Ibuprofen [Motrin] 600 mg PO Q8HR PRN #30 tab PRN Reason: Pain Referrals: None,Stated [Primary Care Provider] - 1-2 days
[2024-09-17] MEDS: methylPREDNISolone SOD SUCCI 125 MG/2 ML VIAL IM ONE (03:16)
[2024-09-17] MEDS: KETOROLAC 15 MG/ML 1 ML VIAL IM STA (03:16)
--- NOTE | 2024-09-17 04:06 | XR ---
EXAM: XR Right Knee, 3 Views CLINICAL HISTORY: ITS.REASON XR Reason: s/o pain TECHNIQUE: Three views of the right knee. COMPARISON: No relevant prior studies available. FINDINGS: Bones/joints: Chondrocalcinosis. Tricompartment degenerative change. Small joint effusion. No acute fracture. No dislocation. Soft tissues: Unremarkable. IMPRESSION: Degenerative change. No acute osseous abnormalities.
[2024-09-17] MEDS: HYDROcodone/APAP 5-325MG 1 EACH TAB PO STA (04:26)
[2024-09-17 05:22] VITALS: BP 122/79; PULSE 74; TEMP 97.7
== END 2024-09-17 05:21 | disposition home or self-care (01) ==
LOC: EC 02:47
DX: M25.561 Pain in right knee (principal)
CPT/HCPCS: 73562; 99283; 96372 ×2; J1885; J2919

== ENCOUNTER → 2025-01-26 | Outpatient (CLI) | payer MEDICARE ==
[2025-01-26 15:14] LABS: Blood Urea Nitrogen 14.4 mg/dL (9.0-27.0); Carbon Dioxide 24.3 mmol/L (21.6-31.8); Chloride 109 mmol/L (96-109); Potassium 4.5 mmol/L (3.5-5.5); Sodium 143 mmol/L (135-145)
[2025-01-26 15:21] LABS: HCT 45.1 % (37.2-46.3); HGB 14.2 g/dL (12.0-15.0); MCH 28.3 pg (27.0-32.0); MCHC 31.5 g/dL (32.0-37.0); Mean Platelet Volume 10.7 FL (9.5-12.2); NRBC Per 100 WBC 0 X 10*3/uL (0.00-0.01); Platelet Count 283 X 10*3/uL (140-440); RBC 5.01 X 10*6/uL (4.10-5.20); RDW 13.6 % (11.5-14.5); WBC 7.27 X 10*3/uL (4.50-10.00)
== END | disposition home or self-care (01) ==
LOC: LABWHC1 11:55
PROVIDERS: ATTEND Internal Medicine Interventional Cardiology
DX: Z01.812 Encounter for preprocedural laboratory examination (principal); I34.0 Nonrheumatic mitral (valve) insufficiency
CPT/HCPCS: 80051; 82565; 84520; 85027

== ENCOUNTER 2025-02-10 09:44 | Day surgery (SDC) | payer MEDICARE ==
[~2025-02-10 09:44] MED LIST changes: -ACETAMINOPHEN TAB 500 MG TAB PO ONE; -ASPIRIN 325 MG TAB PO STA; -ASPIRIN 81 MG PO SCH; -ATORVASTATIN 40 MG TAB PO SCH; -ATORVASTATIN 80 MG TAB PO STA; -HEPARIN SODIUM 1,000 UN/ML (10ML VL) IV ONE; -HEPARIN SODIUM,PORCINE (1 ML) 2,500 UNIT in SODIUM CHLORIDE 0.9% 250 ML IRRIGATION PRN; -HEPARIN SODIUM,PORCINE 10,000 UNIT in SODIUM CHLORIDE 0.9% 1,000 ML IRRIGATION PRN; -IOPAMIDOL-370 100ML BTL INJ ONE; -LIDOCAINE 1% INJ 10MG/ML (20 ML MDV) ONE; -LIDOCAINE 1% INJ 10MG/ML (5 ML VIAL-PF) SQ ONE; -MIDAZOLAM 2 MG/2 ML VIAL IVP ONE; -NITROGLYCERIN SL TABS 0.4 MG TAB SUBLINGUAL ONE; -RX INFO: IV CONTRAST WAS GIVEN 1 EACH MISC MISCELLANE PRN; -SODIUM CHLORIDE 0.9% 1,000 ML IV ONE; -SODIUM CHLORIDE 0.9% 1,000 ML IV SCH; -SODIUM CHLORIDE 0.9% 1,000 ML in EMPTY BAG 1 BAG IV SCH; -VERAPAMIL SYRINGE (5 MG/10 ML) INTRAARTER ONE; -amLODIPine 5 MG TAB ONE; -amLODIPine 5 MG TAB PO SCH; -fentaNYL (PF) 50 MCG/1 ML VIAL IVP ONE; -fentaNYL (PF) 50 MCG/ML 2 ML AMP ONE; -lisinopriL 10 MG TAB PO SCH
[2025-02-10] MEDS: IV FLUID CONTINUATION 1,000 ML IV ONE (09:58)
[2025-02-10] MEDS: SODIUM CHLORIDE 0.9% 1,000 ML in EMPTY BAG 1 BAG IV SCH ×2 (10:01→13:59)
[2025-02-10] MEDS: ATORVASTATIN 80 MG TAB PO STA (10:04)
[2025-02-10] MEDS: ASPIRIN 325 MG TAB PO STA (10:05)
[2025-02-10] MEDS: fentaNYL (PF) 50 MCG/ML 2 ML AMP IVP ONE (12:18)
[2025-02-10] MEDS: LIDOCAINE 1% INJ 10MG/ML (20 ML MDV) SQ ONE ×2 (12:18→12:19)
[2025-02-10] MEDS: HEPARIN SODIUM,PORCINE 10,000 UNIT in SODIUM CHLORIDE 0.9% 1,000 ML IRRIGATION PRN (12:20)
[2025-02-10] MEDS: HEPARIN SODIUM,PORCINE (1 ML) 2,500 UNIT in SODIUM CHLORIDE 0.9% 250 ML IRRIGATION PRN (12:20)
[2025-02-10] MEDS: VERAPAMIL SYRINGE (5 MG/10 ML) INTRAARTER ONE (12:23)
[2025-02-10] MEDS: NITROGLYCERIN SL TABS 0.4 MG TAB SUBLINGUAL ONE (12:26)
[2025-02-10] MEDS: HEPARIN SODIUM 1,000 UN/ML (10ML VL) IV ONE (12:29)
[2025-02-10] MEDS: NITROGLYCERIN 1000MCG/10ML SYRINGE INTRAARTER ONE (12:30)
[2025-02-10] MEDS: NITROGLYCERIN 1000MCG/10ML SYRINGE INTRACORON ONE (12:30)
[2025-02-10] MEDS: CLOPIDOGREL 75 MG TAB PO ONE (12:43)
[2025-02-10] MEDS: amLODIPine 5 MG TAB PO ONE (12:43)
[2025-02-10] MEDS: MIDAZOLAM 2 MG/2 ML VIAL IVP ONE (12:47)
[2025-02-10] MEDS: IOPAMIDOL-370 100ML BTL INJ ONE ×2 (12:52→12:59)
[2025-02-10] MEDS ORDERED: RX INFO: IV CONTRAST WAS GIVEN 1 EACH MISC MISCELLANE PRN (13:08)
[2025-02-10] MEDS ORDERED: ATROPINE SULFATE 0.1 MG/ML 10ML SYRINGE IV PRN (13:08)
[2025-02-10] MEDS ORDERED: NITROGLYCERIN SL TABS 0.4 MG TAB SUBLINGUAL PRN (13:08)
[2025-02-10] MEDS ORDERED: MAG HYDROX/AL HYDROX/SIMETH 30 ML CUP PO PRN (13:08)
[2025-02-10] MEDS ORDERED: ZOLPIDEM 5 MG TAB PO PRN (13:08)
--- NOTE | 2025-02-10 13:16 | P.CARDCATH ---
Date of Procedure: 02/10/25 Description of Procedure: Cardiac Catheterization: The patient is an 89-year-old female with a known history of CAD status post stenting of the LAD and left circumflex in 2020 who has been complaining of exertional chest discomfort and had an abnormal MPI. Recommendations were made regarding cardiac catheterization, the risks and the complications were discussed with the patient who is in full understanding and agreement. Procedure Description: Patient was brought to laborer filter plant in fasting semi-sedated state after receiving Fentanyl and Benadryl achieiving moderate conscious sedated state. Using Xylocaine Anesthesia and modified Seldinger technique, a 6-Uzbek sheath was introduced in the right radial artery . Subsequently, selective coronary angiography was performed using a 5-Uzbek 3.5 bend left Yaquelin and 5 bend right Yaquelin catheter. Multiple views of the coronary artery including hemiaxial views were obtained. The right Yaquelin catheter was used to cross the aortic valve and LVEDP was calculated. PCI: After removing the catheters a 6 Uzbek CLS 3.5 guiding catheter was introduced and after cannulating the left main a 0.014 BMW J-wire was positioned in the distal LAD subsequently a [employer] eye IVUS catheter was introduced and imaging was performed and revealed a distal lumen measuring 3 to 3.1 mm in diameter with good apposition of the old stent. After removing the catheter a 3.0 x 18 mm Xience Skypoint stent was advanced and deployed at 16 mariella. Following that repeat IVUS imaging was performed and revealed good apposition of the stent. Following that, catheter and sheath were removed. Hemostasis was obtained with deployment of vascular band . There was no immediate complication. Patient was returned to room in stable condition. Of note, the patient received a total of 6000 units of intravenous heparin as well as intra-arterial verapamil. She received an oral loading dose of clopidogrel. She had no chest discomfort with the inflations. Her ACT was monitored. Findings: Left main: This is a large size vessel, bifurcating into LAD and left circumflex, left main has no high-grade stenosis. LAD: This is a large size vessel, reaching to the apex with a wraparound apex segment. Giving rise to 2 diagonal branch the first 1 is proximal and small the second 1 is large in caliber in the midsegment. The LAD in the distal segment is diffusely tortuous. The mid segment of the LAD after the takeoff of the diagonal branch has an 80% lesion. The rest of the vessel has no high-grade stenosis. Left circumflex: This is a codominant vessel, large in caliber, giving rise to 3 obtuse marginal branch. The left circumflex has no evidence of high-grade stenosis. RCA: This is a codominant vessel, giving rise to the PDA distally. The stented segment in the mid RCA is patent. The ostium of the RCA has 30 to 40% plaque with no significant progression. Left Ventriculogram: Not performed Hemodynamics: There was no gradient across the aortic valve, LVEDP was 14-18 mmHg Conclusion: 1. Significant stenosis in the mid LAD distal to the prior stent 2. Patent stent in the LAD and RCA 3. 40% plaque at the ostium of the RCA, unchanged 4. Successful stenting of the mid LAD with reduction of stenosis from 80% to 0% with IVUS imaging and RM-3 flow Recommendations: The patient will continue on aspirin and clopidogrel without any interruption for 6 months in addition to aggressive coronary risks modifications, maintaining LDL below 70 mg/dL. The findings and the recommendations were discussed with the patient and the family and they were in full understanding and agreement. Duration of sedation is 39 minutes.
[2025-02-10] MEDS: amLODIPine 5 MG TAB PO SCH (14:34)
[2025-02-10] MEDS: hydrALAZINE HCL 50 MG TAB PO SCH (16:04)
[2025-02-10] MEDS: lisinopriL 10 MG TAB PO SCH (16:33)
[2025-02-10] MEDS: ONDANSETRON 4 MG/2 ML VIAL IVP STA (17:47)
[2025-02-10] MEDS ORDERED: lisinopriL 10 MG TAB PO SCH (21:00)
[2025-02-10] MEDS ORDERED: hydrALAZINE HCL 50 MG TAB PO SCH (21:00)
[2025-02-10] MEDS: ATORVASTATIN 40 MG TAB PO SCH (21:03)
[2025-02-11 06:22] LABS: African American GFR (CKD) >90 (>60 ml/min/1.73 sqM); Anion Gap 7 mmol/L; Blood Urea Nitrogen 17 mg/dL (7-17); Calcium 8.9 mg/dL (8.4-10.2); Carbon Dioxide 21 mmol/L (22-30); Chloride 109 mmol/L (98-107); Glucose 105 mg/dL (74-99); Non-African American GFR(CKD) 80 (>60 ml/min/1.73 sqM); Potassium 4.1 mmol/L (3.5-5.1); Sodium 137 mmol/L (137-145)
--- NOTE | 2025-02-11 07:37 | P.PN ---
Subjective Progress Note Date: 02/11/25 PROGRESS NOTE The patient is an 89-year-old female with known history of multivessel disease who presented with symptoms of chest discomfort and an abnormal MPI. Underwent cardiac catheterization, was found to have patent stent with significant disease in the mid RCA and underwent stenting of that vessel. She is doing well this morning, denying any chest discomfort, dizziness or palpitations. She continues to be in sinus mechanism. Medications: Aspirin once a day, Plavix 75 mg daily, Lipitor 40 mg daily, hydralazine 25 mg twice a day, lisinopril 20 mg twice a day PHYSICAL EXAMINATION: Blood pressure 100/60 heart rate 80 LUNGS: Clear to auscultation HEART: Regular rate and rhythm, S1, S2. No S3. Systolic ejection murmur ABDOMEN: Soft, nontender, no organomegaly EXTREMETIES: No edema, right radial pulse intact LAB: Sinus mechanism with left bundle branch block and no new changes. Potassium 4.1, BUN 17, creatinine 0.65 IMPRESSION: 1. Status post stenting of the mid LAD 2. Patent stent of the mid LAD and RCA 3. Hypertension 4. Hyperlipidemia PLAN: 1. The patient will be discharged home today 2. Continue present therapy, dual antiplatelet treatment for 6 months 3. Follow-up next week 4. Depending on her progress further recommendations will be made Objective - Vital Signs Vital signs: Vital Signs Temp 98.3 F 02/11/25 02:05 Pulse 80 02/11/25 02:05 Resp 16 02/11/25 02:05 BP 100/61 02/11/25 02:05 Pulse Ox 96 02/11/25 02:05 FiO2 Intake & Output 02/10/25 02/11/25 02/11/25 18:59 06:59 18:59 Intake Total 900 Balance 900 Weight 64.2 kg Intake: IV 900 Other: # Voids 1 2 - Labs CBC & Chem 7: 02/11/25 05:00 Labs: Abnormal Lab Results - Last 24 Hours (Table) 02/11/25 Range/Units 05:00 Chloride 109 H (98-107) mmol/L Carbon Dioxide 21 L (22-30) mmol/L Glucose 105 H (74-99) mg/dL
[2025-02-11 08:15] VITALS: BP 153/69; PULSE 76; RESP 14; TEMP 98.5
[2025-02-11] MEDS ORDERED: CLOPIDOGREL 75 MG TAB PO SCH (09:00)
[2025-02-11] MEDS ORDERED: ASPIRIN 81 MG PO SCH (09:00)
== END 2025-02-11 08:20 | disposition home or self-care (01) ==
LOC: CATHCVL 09:44 → 6NMEDSUR 12:57 → CATHCVL 02-11 08:20
PROVIDERS: ATTEND Internal Medicine Interventional Cardiology
DX: I25.10 Atherosclerotic heart disease of native coronary artery without angina pectoris (principal); I10 Essential (primary) hypertension; E78.2 Mixed hyperlipidemia; Z79.02 Long term (current) use of antithrombotics/antiplatelets; Z79.82 Long term (current) use of aspirin; Z79.899 Other long term (current) drug therapy; Z95.5 Presence of coronary angioplasty implant and graft; Z87.891 Personal history of nicotine dependence; E07.9 Disorder of thyroid, unspecified
CPT/HCPCS: 92978; 93458; 80048; 99152; 99153; C1769 ×4; C9600; C1887; C1894; C1874; C1753; J2250; J1644 ×3; J2405; J2003; J3010; Q9967; J2305